=== PATIENT | female | born 1960 | race Caucasian/White ===

== ENCOUNTER 2016-04-06 15:57 | Inpatient (IN) | payer OTHER, MEDICARE ==
[~2016-04-06] VITALS: Ht 165.1 cm; Wt 113.4 kg
[~2016-04-06 15:57] MED LIST: AMBIEN 10MG10 MG PO; CHLORPROMAZINE50 M2 PO; CLOTRIMAZOLE10 M1 PO; CYANOCOBAL1000 MCG/M IM; ENULOSE 2020 GM/30 M PO; LASIX20 M1 PO; LEVEMIR100 UNIT/1 SC; LIDOCAINE HCL V15 ML PO; LORAZEPAM1 MG PO; METOPROLOL SUCC25 M1 PO; Magic mouthwash PO; NEURONTIN800 M2 PO; NORVASC 5MG TAB5 MG PO; NOVOLOG100 UNIT/2 SC; OXY IR5 MG PO; OXYCODONE HCL5 M2 PO; OXYCODONE HYDRO10 M1 PO; PERCOCET 5-3251 EACH PO; PRILOSEC OTC20 MG PO; SERTRALINE HYDR25 MG PO; STOMACH PILL; ULTRAM50 M1 PO; VITAMIN B-121000 MC3 PO; VITAMIN B121000 MCG PO; ZOFRAN ODT4 MG PO; ZOLOFT25 MG PO; ZOLPIDEM TARTRA10 M1 PO
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
[2016-04-06 17:51] LABS: ABSOLUTE BASOPHIL COUNT 0 /CUMM (0.0-0.2); ABSOLUTE EOSINOPHIL COUNT 0 /CUMM (0.0-0.7); ABSOLUTE GRANULOCYTE CT 1.9 /CUMM (1.4-6.5); ABSOLUTE LYMPH COUNT 0.6 /CUMM (1.2-3.4); ABSOLUTE MONOCYTE COUNT 0.5 /CUMM (0.10-0.60); BASOPHIL % 0.5 % (0.0-2.0); EOSINOPHIL % 0.5 % (0-5); HEMATOCRIT 36.6 % (37-47); MEAN CORPUSCULAR HGB 35.1 PG (27.0-31.0); MEAN CORPUSCULAR HGB CONC 33.7 G/DL (33.0-37.0); MEAN CORPUSCULAR VOLUME 104.2 FL (81.0-99.0); MEAN PLATELET VOLUME 6.6 FL (7.4-10.4); PLATELET COUNT 91 /CUMM (130-400); RBC DISTRIBUTION WIDTH 17.9 % (11.5-14.5); RED BLOOD CELL CT 3.51 /CUMM (4.20-5.40); WHITE BLOOD CELL COUNT 3.1 /CUMM (4.8-10.8)
--- NOTE | 2016-04-06 18:10 | RADIOLOGY REPORT ---
EXAMINATION: XR KNEE, RIGHT CLINICAL INFORMATION: Trauma. Fall. Pain. COMPARISON: None. TECHNIQUE: 5 views. FINDINGS: No fracture. No dislocation. No joint effusion. There is chondrocalcinosis of the medial and lateral meniscus. No bone erosion or significant bone spur. IMPRESSION: No acute abnormality of the knee.
--- NOTE | 2016-04-06 18:59 | CT SCAN REPORT ---
CT HEAD WITHOUT CONTRAST CLINICAL INFORMATION: Fall with pain. COMPARISON: Head CT 02/24/2012. TECHNIQUE: Contiguous axial imaging was performed from the skull base to vertex without intravenous administration of contrast. FINDINGS: There is no intracranial hemorrhage, hydrocephalus, extra-axial surface collection, midline shift, or other herniation pattern. Vargas to white matter differentiation is diffusely maintained without evidence of an evolved acute territorial infarct. The basilar cisterns are preserved. No significant soft tissue abnormality. No acute osseous abnormality. 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 Stable appearing chronic deformity of the left nasal bone. There is mild mucosal thickening throughout the left maxillary sinus. The remaining paranasal sinuses and the mastoid air cells are well-aerated. IMPRESSION: - No acute intracranial abnormality. 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
[2016-04-06 21:56] VITALS: BP 140/90
--- NOTE | 2016-04-06 23:53 | History & Physical ---
COURTNEY PERSAUD,[facility] 04/06/16 7671: General Information and HPI MD Statement: I have seen and personally examined HIRAL ANGUIANO and documented this H&P. The patient is a 55 year old F who presented with a patient stated chief complaint of [multiple fall]. Source of Information: patient, old records Exam Limitations: no limitations History of Present Illness: 55/F with PMH of active C Viers not on medication, cirrhosis, alcohol abuse didn 't drink for the last 5 months, HTN, CKD stage 3B, anxiety, depression, and GERD , who presented to the ED because of multiple falls. 2 Days ago patient fell on the heater and gaona her lower abdomen. yesterday she fell again and this time landed on her right knee and hit her head. Due to these recent multiple falls, her nurse send her to the hospital as she believes it's unsafe for the patient to stay home alone. Patient reported dizziness and mild shortness breath before she lost balance during both episodes. She denies LOC, seizure like activity, palpitation, or chest pain. Patient was recently started on insulin sliding scale for newly diagnosed diabetes mellitus. She admitted that she is not made during her blood sugar daily. She has a history of alcohol and drug abuse, however according to the patient she did not drink alcohol for the last 5 months. Patient lives alone, she feels sad and depressed because of her 13-year-old son just left her and went to live with his sister. She denies any suicidal/ homicidal ideation. However, Patient was discharged on March 19 after she was admitted because of Tylenol overdose which she claims to be accident. Patient reports right ear itching, dizziness, feeling as if her head is spinning just before the first fall. she also stated that the upper half of her heart sometimes go fast,but she does not remember the name of the condition. Allergies/Medications Allergies: Coded Allergies: NO KNOWN ALLERGIES (01/03/11) Home Med list Chlorpromazine HCl 50 MG TABLET 1 TAB PO DAILY MENTAL HEALTH (Reported) Cyanocobalamin (Vitamin B-12) (Unknown Strength) TAB (Unknown Dose) PO DAILY SUPPLEMENT (Reported) Furosemide 20 MG TABLET 1 TAB PO DAILY DIURETIC (Reported) Gabapentin 600 MG TABLET 1 TAB PO TID PAIN (Reported) Insulin Aspart (Novolog) 100 UNIT/ML VIAL 0 UNITS SC TIDAC/HS diabetes BEFORE MEALS Blood Insulin Sugar Units <80 0 81-150 6 151-200 8 201-250 9 251-300 10 301-350 11 351-400 13 >400 Call Doctor AT BEDTIME Blood Insulin Sugar Units <80 0 81-100 0 101-200 0 201-250 0 251-300 4 301-350 5 351-400 6 >400 Call Doctor Insulin Detemir (Levemir) 100 UNIT/ML VIAL 10 UNITS SC BID diabetes Lidocaine HCl (Lidocaine HCl Viscous) 2 % SOLUTION 15 ML PO 4 TIMES/DAY pain [Magic mouthwash] 5-10 ML PO Q6P PRN sore throat Maalox, Lidocaine, Benadryl=1:1:1 Metoprolol Succinate 25 MG TAB 1 TAB PO DAILY afib Omeprazole (Prilosec Otc) 20 MG TCP 1 TAB PO QDAY GASTRITIS Oxycodone HCl/Acetaminophen (Percocet 5-325 MG Tablet) 5 MG-325 MG TABLET 1 TAB PO BID PRN BREAKTHROUGH PAIN Tramadol HCl (Ultram) 50 MG TABLET 1-2 TAB PO Q6PRN PRN severe pain Zolpidem Tartrate 10 MG TABLET 1 TAB PO QPMP SLEEP (Reported) Past History Travel History Traveled to [place] past 21 day No Medical History Blood Transfusion Hx: No Neurological: delerium, severe bout of hepatic encephalopathy, 02/2012 EENT: NONE Cardiovascular: hypertension Respiratory: obstructive sleep apnea Gastrointestinal: diverticulitis, upper GI bleed, colonoscopy in 12/22 one small TA and diverticulosis, EGD showed portal hypertensive gastropathy, but no varices Hepatic: cirrhosis, hepatitis C, hepatic encephalopathy Renal: urinary incontinence, acute renal failure Musculoskeletal: CHRONIC BACK PAIN BILATERAL LEG PAIN Psychiatric: alcohol dependence, anxiety, chronic pain disorder, depression, insomnia, opioid dependence (prescribed by PCP) Endocrine: diabetes Blood Disorders: coagulopathy, pancytopenia Cancer(s): cervical cancer, uterine cancer [employer]/Reproductive: NONE History of MRSA: No History of VRE: No History of CDIFF: No Isolation History: Standard Tetanus Vaccine: 04/04/16 Surgical History Surgical History: leep PROCEDURE Past Family/Social History Family History Relations & Conditions if any FATHER Relation not specified for: FH: hypertension Psychosocial History Where do you live? Home Services at Home: Nursing Smoking Status: Current Everyday Smoker Review of Systems Review of Systems Constitutional: Denies: see HPI, chills, diaphoresis, fever. EENTM: Reports: ear pain (right ear). Cardiovascular: Denies: chest pain, edema, palpitations, peripheral edema, syncope. Respiratory: Reports: short of breath (very mild before fall). Denies: cough, sputum production, wheezing. GI: Denies: abdominal pain, bloating, constipation, diarrhea, nausea, vomiting. Genitourinary: Denies: dysuria. Skin: Denies: rash. Exam & Diagnostic Data Last 24 Hrs of Vital Signs/I&O Vital Signs Date Time Temp Pulse Resp B/P Pulse O2 O2 Flow FiO2 Ox Delivery Rate 04/07 0520 98.1 155 26 108/78 92 04/06 2156 98.3 92 20 140/90 95 04/06 2118 22 97 Room Air 04/06 2014 97.0 93 20 136/98 93 Room Air 04/06 1842 97.8 83 18 120/60 04/06 1730 85 20 133/64 97 Room Air Intake & Output 04/07 0800 04/07 0000 04/06 1600 Intake Total 240 Output Total 1 Balance -1 240 Intake, Oral 240 Output, Stool 1 Patient 113.398 kg 113.398 kg Weight Physical Exam General Appearance Alert, Oriented X3, Cooperative, No Acute Distress Skin No Rashes, burn on the left lower quadrant and found 15 cm by 6 centimeter HEENT Atraumatic, PERRLA, EOMI, mildly dry Neck No JVD Cardiovascular Regular Rate, Normal S1, Normal S2, No Murmurs Lungs decreased air entry over lung bilaterally with no additional sounds Abdomen Soft, No Tenderness Neurological Normal Speech Assessment/Plan Assessment: Assessment and plan #Multiple falls likely Patient multiple falls can be multifactorial, patient has a liver cirrhosis with elevated ammonia levels at presentation so hepatitic encephalopathy is a possible. Patient was recently diagnosed with diabetes and just started on insulin, so hypoglycemia is another possible. * We will hydrate hydration with normal saline at 150 mL an hour * Patient will receive lactulose 20 mg 3 times a day. * Repeat ammonia levels in a.m. * Frequent Accu-Cheks. We will place patient on the same insulin scale as during last admission. * We will check orthostatics * PT consult in a.m. * Safe discharge disposition. #burn over the left lower quadrant. * Wound consult in a.m. evaluation of the burn. * We will continue burn cream. #Diabetes mellitus: Last admission her Hemoglobin A1c was 10.7. * Accu-Cheks * NovoLog sliding scale(same scale as last discharge) * Levemir 10 units twice a day * Endocrinology consult in a.m. #CKD stage 3B * Creatinine is on the baseline 1.1. * Repeat BEP tomorrow #Chronic Hep C with cirrhosis. She is scheduled for follow up with Dr. Ortiz this month for treatment of Hep C. Last viral load (2014): 7093614. Ultimately may need a liver transplant evaluation. * We will check liver function tests * We will check INR #Macrocytosis: Most likely Secondary to alcohol abuse During last admission earlier this month patient had Elevated B12 levels, normal folate, TSH and cortisol. #Hypertension, bipolar, GERD * We will continue home medication including metoprolol, omeprazole, Lasix, gabapentin and Ambien. #Depression Patient denies suicidal ideation or homicidal ideation. Her 13-year-old son just moved to live with his sister, and this broke her heart, patient was crying during and after admission. * Psych consult in am DVT ppx Alps. Diabetic diet Full code. As Ranked By This Provider Problem List: 1. Depression 2. Diabetes mellitus 3. Fall Core Measures/Miscellaneous Acute Coronary Syndrome ACS Diagnosis: No Cerebrovascular Accident CVA/TIA Diagnosis: No Congestive Heart Failure CHF Diagnosis: No Venous Thromboembolism VTE Risk Factors: Acute medical illness, Age > 40 VTE Prophylaxis Ordered Inpt: Mech & Pharm No Mech VTE prophylaxis d/t: No contraindications No VTE Pharm Prophylaxis d/t: No contraindications VTE Diagnosis: No VTE Type: NONE VTE Confirmed by (Test): NONE Severe Sepsis Severe Sepsis Present: No Septic Shock Septic Shock Present: No Miscellaneous Documentation Attending Case Discussed With: MAN FORD MD Primary Care Physician: MANDIE PUENTE MD Patient sees these Specialists MANDIE PUENTE MD Level of Patient Care: General Medicine SOFIA RICHARDS 04/07/16 0049: Resident Review Statement Resident Statement: examined this patient, discussed with strategy intern Other Findings: 55 yo F with h/o Hep C s/p ribavirin, IFN and boceprevir, cirrhosis, HTN, CKD stage 3B, anxiety, depression, GERD, previous alcohol use sober for 5 months, recent admission to [place](03/15/2016) drug overdose(Vyvanse, ambien, and chlopromazine) presented to the ED from home with a chief complaint of multiple falls. The A nurse send the patient to the hospital since she was deemed unsafe at home. She fell down on the heater 2 days ago resulting in a burn on her abdomen for which she was seen in the ER. She had a mechanical fall yesterday when she lost her balance, fell in the ground and hit her head. She also injured her right knee. Admits to being lightheaded and dizzy prior to the fall. Denies any loss of consciousness, seizure-like activity. Admits to being lethargic at home and taking lactulose for constipation. She was started on insulin during the last admission and admits to taking that at home. However she does not check her sugar regularly. Denies any alcohol/drug abuse. Lives at home by herself. Denies any chest pain, shortness of breath, palpitations, nausea, vomiting, urinary and bowel complaints. Denies any suicidal/homicidal ideation. In the ED vitals temperature 97.8, pulse 83, respiration 18, blood pressure 120/ 60, saturating 97% on room air. Labs showed a WBC count of 31, H&H 12.3/36.6, MCV 104.2, platelet count 91, creatinine 1.1(baseline 1.3), glucose 159, total bili 2.4, AST 112, ALT 74, alkaline phosphatase 189, ammonia 52, creatinine kinase 251, albumin 2.1, hemoglobin A1c 10.7(03/16/2016), INR pending U tox negative, serum alcohol level less than 10, UA benign Head CT negative for any acute intracranial pathology. 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 Knee x-ray negative for any abnormality. Physical exam: Gen.: Morbidly obese, awake, alert, oriented 3, moderate distress, tremulous Skin: Spider angiomatous is noted over chest and back. Multiple bruises over her left knee, abdomen and back. Large area of second-degree burn located on the left side of the abdomen with erythema. HEENT: PERRLA, EOMI, dry mucous membranes Respiratory: Normal breath sounds CVS: Regular rate and rhythm, no murmurs rubs or gallops. Neurological: Power intact, reflexes normal, mild flapping tremor noted. Plan: 1. Multiple falls likely secondary to hepatitic encephalopathy Vs hypoglycemia. Elevated ammonia levels at presentation. Takes lactulose on and off. Recently started on insulin during last admission. Does not check sugars at home. Lives by herself and often skips meals. Elevated CPK levels on labs -Admit to [facility] -Frequent neuro checks -Aggressive hydration with normal saline at 150 mL an hour -Continue lactulose 20 mg 3 times a day goal at 3 BM/day. Repeat ammonia levels in a.m. -Frequent Accu-Cheks. We will place patient on the same insulin scale as during last admission. -We will check orthostatics -PT consult in a.m. -Safe discharge disposition. -Wound consult in a.m. evaluation of the burn. We will continue barrier cream for now. 2.Hepatic encephalopathy: Ammonia 55, h/o cirrhosis 2/2 Hep C. MELD SCORE 12. -Continue lactulose at 20 mg twice a day -We'll check ammonia levels in a.m. -Trend LFTs and bilirubin 3. Diabetes mellitus: Hemoglobin A1c 10.7. -3 times a day Accu-Cheks -NovoLog sliding scale(same scale as last discharge) -Levemir 10 units twice a day -Endocrinology consult in a.m. 4.CKD stage 3B - stable 5.Chronic Hep C with cirrhosis. She is scheduled for follow up with Dr. Ortiz this month for treatment of Hep C. Last viral load (2014): [id number]. Ultimately may need a liver transplant evaluation. 7. Macrocytosis: Secondary to alcohol abuse -Elevated B12 levels, normal folate, TSH and cortisol earlier this month. -Sober for 5 months now. -Will put on CIWA as pt anxious and Ativan per CIWA 8. Thrombocytopenia with hypoalbuminemia 2/2 cirrhosis[address]. 9[address] metoprolol, omeprazole, Lasix, gabapentin and Ambien. 10. Depression/ crying spells -Psych consult in am DVT ppx Alps. Diabetic diet Full code. MAN FORD 04/07/16 0302: Attending MD Review Statement Attending Statement Attending MD Statement: examined this patient, discuss w/resident/PA/RESTROOMS OR LOUNGES MAID, agreed w/resident/PA/RESTROOMS OR LOUNGES MAID, reviewed EMR data (avail), reviewed images, amended to note Attending Assessment/Plan: CC: Multiple falls PMHx: Cirrhosis, hep C (nontender treatment), alcohol abuse, hepatic encephalopathy, bipolar, HTN, renal insufficiency, DM, obesity Patient had multiple falls in last week, patient lives alone at home, patient's home care nurse called stating that she believes patient may not be safe at her home given multiple falls. Patient describes all falls probably secondary to unsteady gait and accidental falls, without LOC. She describes hitting her right knee, right wrist, head, landing on space heater on different occasions. She describes dizziness, mild shortness of breath before falls but denies palpitations, chest pain, headache, loss of consciousness before or after falls. Patient was recently diagnosed to be diabetes and was started on basal and sliding scale insulin at home, patient is compliant with her basal insulin Levemir 10 twice a day, she did not check her blood sugar with all this falls. Does not report low blood sugar in any other occasion. Patient was admitted for accidental ingestion of amphetamine and was discharged on March 19. NO Hx Ascitis or GI bleeding, she takes lactulose at home as required. Has BM daily or every alternate day. Vitals: Afebrile, HR, RR, BP, O2 saturation in acceptable range. On examination : A O 3, anxious, no respiratory distress, no focal neurological deficit, cranial nerves intact, left eye appears more sunken and smaller than the right ( old), extraocular muscles intact. tremors present, asterixis appreciated, spider angiomata on skin, superficial burn on the left lower abdomen, no evidence of infection. Abdomen is soft otherwise, BS + Mucosa moist, no JVD. RS: Diffuse wheezing bilaterally CVS: S1 and S2, RRR. Labs WBC 3.1, hemoglobin 12.3, MCV 104.2. Creatinine 1.1, glucose 159, bilirubin 2.4, AST 112, ALT 74, ammonia 52, CPK 251, albumin 2.1, INR pending, UA unremarkable, U tox positive for opiates, BAL negative X-ray right knee: No acute abnormality. CT head: No acute intracranial abnormality A and P #1 multiple falls: probably secondary to metabolic encephalopathy, OT PT evaluation in a.m. #2 metabolic encephalopathy: Probably secondary to hepatic encephalopathy, ammonia is elevated, continue scheduled lactulose 3 times a day, with the goal bowel movements 3 per day. Kidney function of appears to be in baseline range ruling out uremia. #3 cirrhosis bilirubin is at baseline but mild transaminitis present, repeat labs in a.m. Patient also has thrombocytopenia and leukopenia secondary to alcoholism and cirrhosis #4 patient appears more anxious, denies any alcohol use in last 6 months. Her blood alcohol level was negative. But patient lives alone at home and her abstinence could not be confirmed. Continue when necessary Ativan according to Ciwa score. Discontinue Savella score if patient remains stable. #5 evaluation for STIR given her multiple falls, and encephalopathy. #6 wound care consult for borderline injury on abdomen. #7 DM, HTN, and bipolar disorder: Continue basal and sliding scale insulin. continue home medications, metoprolol and Lasix. #8 DVT prophylaxis with heparin, adequate pain control, avoid excessive narcotics.
[2016-04-07] VITALS (10 sets, daily range): BP systolic 100–144; BP diastolic 68–88
--- NOTE | 2016-04-07 03:03 | Admission Certification ---
Admission Certification Certification Statement - As attending physician, I certify that at the time of - admission, based on clinical presentation, severity of - symptoms, need for further diagnostic testing and - therapeutic interventions, and risk of adverse outcomes - without in-hospital treatment, in my clinical assessment, - this patient requires an acute hospital stay for a minimum - of two nights or longer. I have also considered psychsocial - factors such as support system, advanced age, financial - issues, cognitive issues, and failed out-patient treatments, - past re-admission history, safety of patient, and lack of - compliance as applicable. Specific rationale supporting this admission is: Metabolic encephalopathy
--- NOTE | 2016-04-07 06:57 | Event Note ---
Event Note Event Note: Around 5:30 AM a rapid response was initiated on the patient because of heart rate 150/m. Patient was seen and examined. Patient was alert oriented. She was in the moderate distress. She denies shortness breath, chest pain, palpitation or dizziness. An EKG was done and confirmed supraventricular tachycardia. Valsalva and carotid massage did not break SVT. Patient was then transferred to telemetry. On telemetry heart rate went down to 120s without any intervention. * Potassium, sodium and calcium was within normal limits * A stat magnesium, phosphate, troponin was sent. * At 3 sets of troponin and EKG was placed rule out acute coronary syndrome. * We order echocardiogram * Patient was given 5 mg of Cardizem IV, after which heartrate slowed down to low 110s.
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
[2016-04-07 08:13] LABS: ABSOLUTE BASOPHIL COUNT 0 /CUMM (0.0-0.2); ABSOLUTE EOSINOPHIL COUNT 0 /CUMM (0.0-0.7); ABSOLUTE GRANULOCYTE CT 2.2 /CUMM (1.4-6.5); ABSOLUTE LYMPH COUNT 0.7 /CUMM (1.2-3.4); ABSOLUTE MONOCYTE COUNT 0.6 /CUMM (0.10-0.60); BASOPHIL % 0.5 % (0.0-2.0); EOSINOPHIL % 0.4 % (0-5); GRANULOCYTE % 62.3 % (42.2-75.2); HEMATOCRIT 36.2 % (37-47); MEAN CORPUSCULAR HGB 35.5 PG (27.0-31.0); MEAN CORPUSCULAR HGB CONC 33.9 G/DL (33.0-37.0); MEAN CORPUSCULAR VOLUME 104.5 FL (81.0-99.0); MEAN PLATELET VOLUME 6.9 FL (7.4-10.4); PLATELET COUNT 87 /CUMM (130-400); RBC DISTRIBUTION WIDTH 18.2 % (11.5-14.5); RED BLOOD CELL CT 3.46 /CUMM (4.20-5.40); WHITE BLOOD CELL COUNT 3.5 /CUMM (4.8-10.8)
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
[2016-04-07 08:32] LABS: PT 16.8 SEC (9.4-12.5)
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
--- NOTE | 2016-04-07 10:23 | Cons- Endocrinology ---
General Information and HPI Consulting Request Date of Consult: 04/07/16 Requested By: medical team Reason for Consult: management of DM type 2. Source of Information: patient, old records Exam Limitations: poor historian History of Present Illness: 55/F with PMH of cirrhosis, alcohol and drug abuse, HTN, CKD, anxiety, depression, GERD and DM, was admitted to after she had multiple falls. I was asked to see her for management of DM. She is on Levemir 10 units twice a day, Novolog coverage before meals and Novolog coverage at bedtime. Her FSG this morning was 131. Allergies/Medications Allergies: Coded Allergies: NO KNOWN ALLERGIES (01/03/11) Home Med List: Chlorpromazine HCl 50 MG TABLET 1 TAB PO DAILY MENTAL HEALTH (Reported) Cyanocobalamin (Vitamin B-12) (Unknown Strength) TAB (Unknown Dose) PO DAILY SUPPLEMENT (Reported) Furosemide 20 MG TABLET 1 TAB PO DAILY DIURETIC (Reported) Gabapentin 600 MG TABLET 1 TAB PO TID PAIN (Reported) Insulin Aspart (Novolog) 100 UNIT/ML VIAL 0 UNITS SC TIDAC/HS diabetes BEFORE MEALS Blood Insulin Sugar Units <80 0 81-150 6 151-200 8 201-250 9 251-300 10 301-350 11 351-400 13 >400 Call Doctor AT BEDTIME Blood Insulin Sugar Units <80 0 81-100 0 101-200 0 201-250 0 251-300 4 301-350 5 351-400 6 >400 Call Doctor Insulin Detemir (Levemir) 100 UNIT/ML VIAL 10 UNITS SC BID diabetes Lidocaine HCl (Lidocaine HCl Viscous) 2 % SOLUTION 15 ML PO 4 TIMES/DAY pain [Magic mouthwash] 5-10 ML PO Q6P PRN sore throat Maalox, Lidocaine, Benadryl=1:1:1 Metoprolol Succinate 25 MG TAB 1 TAB PO DAILY afib Omeprazole (Prilosec Otc) 20 MG TCP 1 TAB PO QDAY GASTRITIS Oxycodone HCl/Acetaminophen (Percocet 5-325 MG Tablet) 5 MG-325 MG TABLET 1 TAB PO BID PRN BREAKTHROUGH PAIN Tramadol HCl (Ultram) 50 MG TABLET 1-2 TAB PO Q6PRN PRN severe pain Zolpidem Tartrate 10 MG TABLET 1 TAB PO QPMP SLEEP (Reported) Review of Systems Review of Systems Constitutional: Reports: see HPI. Cardiovascular: Reports: edema. Denies: chest pain. Respiratory: Denies: short of breath. GI: Denies: abdominal pain. Genitourinary: Denies: dysuria. Hematologic/Endocrine: Denies: polyuria, polydipsia. Past History Travel History Traveled to [place] past 21 day No Medical History Blood Transfusion Hx: No Neurological: delerium, severe bout of hepatic encephalopathy, 02/2012 EENT: NONE Cardiovascular: hypertension Respiratory: obstructive sleep apnea Gastrointestinal: diverticulitis, upper GI bleed, colonoscopy in 12/22 one small TA and diverticulosis, EGD showed portal hypertensive gastropathy, but no varices Hepatic: cirrhosis, hepatitis C, hepatic encephalopathy Renal: urinary incontinence, acute renal failure Musculoskeletal: CHRONIC BACK PAIN BILATERAL LEG PAIN Psychiatric: alcohol dependence, anxiety, chronic pain disorder, depression, insomnia, opioid dependence (prescribed by PCP) Endocrine: diabetes Blood Disorders: coagulopathy, pancytopenia Cancer(s): cervical cancer, uterine cancer 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 Home Services at Home: Nursing Smoking Status: Current Everyday Smoker Exam & Diagnostic Data Last 24 Hrs of Vital Signs/I&O Vital Signs Date Time Temp Pulse Resp B/P Pulse O2 O2 Flow FiO2 Ox Delivery Rate 04/07 0927 119 100/68 04/07 0836 98.5 119 22 100/68 93 Room Air 04/07 0647 118 126/60 04/07 0625 97.8 120 22 144/68 90 Room Air 04/07 0520 98.1 155 26 108/78 92 04/06 2156 98.3 92 20 140/90 95 04/06 2118 22 97 Room Air 04/06 2014 97.0 93 20 136/98 93 Room Air 04/06 1842 97.8 83 18 120/60 04/06 1730 85 20 133/64 97 Room Air Intake & Output 04/07 1600 04/07 0800 04/07 0000 Intake Total 350 240 Output Total 1 Balance 349 240 Intake, IV 200 Intake, Oral 150 240 Number 0 Bowel Movements Output, Stool 1 Patient 250 lb 250 lb Weight Physical Exam General Appearance: anxious, mild distress Neck: normal inspection Respiratory: decreased breath sounds Cardiovascular: regular rate/rhythm Gastrointestinal: distention Extremities: swelling Skin: ecchymosis (huge skin lesion over LLQ) Labs/Paresh Results: Laboratory Tests 04/07 04/07 04/07 0650 0603 0510 Chemistry Sodium (137 - 145 mmol/L) 139 Potassium (3.5 - 5.1 mmol/L) 3.8 Chloride (98 - 107 mmol/L) 106 Carbon Dioxide (22 - 30 mmol/L) 28 Anion Gap (5 - 16) 5 BUN (7 - 17 mg/dL) 9 Creatinine (0.5 - 1.0 mg/dL) 1.2 H Estimated GFR (>60 ml/min) 47 L BUN/Creatinine Ratio (7 - 25 %) 7.5 Phosphorus (2.5 - 4.5 mg/dL) 3.0 Magnesium (1.6 - 2.3 mg/dL) 1.4 L Total Bilirubin (0.2 - 1.3 mg/dL) 2.4 H Direct Bilirubin (< 0.4 mg/dL) 1.4 H AST (14 - 36 U/L) 106 H ALT (9 - 52 U/L) 68 H Alkaline Phosphatase (<127 U/L) 199 H Ammonia (9 - 30 umol/L) 37 H Troponin I (< 0.11 ng/ml) < 0.01 Cancelled Cancelled Total Protein (6.3 - 8.2 g/dL) 6.8 Albumin (3.5 - 5.0 g/dL) 2.1 L TSH (0.270 - 4.200 uIU/mL) 5.740 H Coagulation PT (9.4 - 12.5 SEC) 16.8 H INR (0.90 - 1.19) 1.61 H Hematology CBC w Diff NO MAN DIFF REQ WBC (4.8 - 10.8 /CUMM) 3.5 L RBC (4.20 - 5.40 /CUMM) 3.46 L Hgb (12.0 - 16.0 G/DL) 12.3 Hct (37 - 47 %) 36.2 L MCV (81.0 - 99.0 FL) 104.5 H MCH (27.0 - 31.0 PG) 35.5 H RDW (11.5 - 14.5 %) 18.2 H Plt Count (130 - 400 /CUMM) 87 L MPV (7.4 - 10.4 FL) 6.9 L Gran % (42.2 - 75.2 %) 62.3 Lymphocytes % (20.5 - 51.1 %) 19.2 L Monocytes % (1.7 - 9.3 %) 17.6 H Eosinophils % (0 - 5 %) 0.4 Basophils % (0.0 - 2.0 %) 0.5 Absolute Granulocytes (1.4 - 6.5 /CUMM) 2.2 Absolute Lymphocytes (1.2 - 3.4 /CUMM) 0.7 L Absolute Monocytes (0.10 - 0.60 /CUMM) 0.6 Absolute Eosinophils (0.0 - 0.7 /CUMM) 0 Absolute Basophils (0.0 - 0.2 /CUMM) 0 PUBS MCHC (33.0 - 37.0 G/DL) 33.9 04/06 04/06 1906 1848 Chemistry Ammonia (9 - 30 umol/L) 52 H Toxicology Urine Opiates Screen (>2000 NG/ML) 898.00 Methadone Screen (>300 NG/ML) 50 Barbiturate Screen (>200 NG/ML) < 60 Ur Phencyclidine Scrn (>25 NG/ML) < 6.00 Amphetamines Screen (>1000 NG/ML) < 100 U Benzodiazepines Scrn (>200 NG/ML) < 85 Urine Cocaine Screen (>300 NG/ML) < 50 Urine Cannabis Screen (>50 NG/ML) < 5.00 Urines Urine Color (YEL,AMB,STR) YEL Urine Clarity (CLEAR) CLEAR Urine pH (5.0 - 8.0) 7.0 Ur Specific [place] (1.001 - 1.035) 1.010 Urine Protein (NEG,<30 MG/DL) NEG Urine Ketones (NEG) NEG Urine Nitrite (NEG) NEG Urine Bilirubin (NEG) NEG Urine Urobilinogen (0.1 - 1.0 EU/dl) >=8.0 H Ur Leukocyte Esterase (NEG) NEG Ur Microscopic EXAM NOT REQUIRED Urine Hemoglobin (NEG) NEG Urine Glucose (N MG/DL) NEG 04/06 1740 Chemistry Sodium (137 - 145 mmol/L) 137 Potassium (3.5 - 5.1 mmol/L) 4.2 Chloride (98 - 107 mmol/L) 102 Carbon Dioxide (22 - 30 mmol/L) 30 Anion Gap (5 - 16) 5 BUN (7 - 17 mg/dL) 9 Creatinine (0.5 - 1.0 mg/dL) 1.1 H Estimated GFR (>60 ml/min) 52 L BUN/Creatinine Ratio (7 - 25 %) 8.2 Glucose (65 - 99 mg/dL) 159 H Calcium (8.4 - 10.2 mg/dL) 8.4 Total Bilirubin (0.2 - 1.3 mg/dL) 2.4 H AST (14 - 36 U/L) 112 H ALT (9 - 52 U/L) 74 H Alkaline Phosphatase (<127 U/L) 189 H Creatine Kinase (30 - 135 U/L) 251 H Total Protein (6.3 - 8.2 g/dL) 6.8 Albumin (3.5 - 5.0 g/dL) 2.1 L Globulin (1.9 - 4.2 gm/dL) 4.7 H Albumin/Globulin Ratio (1.1 - 2.2 %) 0.4 L Amylase (30 - 110 U/L) < 30 L Lipase (23 - 300 U/L) 104 Hematology CBC w Diff NO MAN DIFF REQ WBC (4.8 - 10.8 /CUMM) 3.1 L RBC (4.20 - 5.40 /CUMM) 3.51 L Hgb (12.0 - 16.0 G/DL) 12.3 Hct (37 - 47 %) 36.6 L MCV (81.0 - 99.0 FL) 104.2 H MCH (27.0 - 31.0 PG) 35.1 H RDW (11.5 - 14.5 %) 17.9 H Plt Count (130 - 400 /CUMM) 91 L MPV (7.4 - 10.4 FL) 6.6 L Gran % (42.2 - 75.2 %) 63.0 Lymphocytes % (20.5 - 51.1 %) 20.6 Monocytes % (1.7 - 9.3 %) 15.4 H Eosinophils % (0 - 5 %) 0.5 Basophils % (0.0 - 2.0 %) 0.5 Absolute Granulocytes (1.4 - 6.5 /CUMM) 1.9 Absolute Lymphocytes (1.2 - 3.4 /CUMM) 0.6 L Absolute Monocytes (0.10 - 0.60 /CUMM) 0.5 Absolute Eosinophils (0.0 - 0.7 /CUMM) 0 Absolute Basophils (0.0 - 0.2 /CUMM) 0 PUBS MCHC (33.0 - 37.0 G/DL) 33.7 Toxicology Serum Alcohol (<10 MG/DL) < 10.0 Assessment/Plan Assessment/Plan 55/F with PMH of cirrhosis, alcohol and drug abuse, HTN, CKD, anxiety, depression, GERD and DM, was admitted to after she had multiple falls. 1. DM management: ---continue Levemir 10 units twice a day; ---adjust Novolog coverage before meals and Novolog coverage at bedtime--detail see the inpatient DM orders; ---monitor FSGs; 2. abnormal TSH: ---repeat TSH, check free T4 and TT3 in the morning; ---check thyroid antibody panel. Inpatient Diabetes Orders Before Each Meal: Bolus Insulin: Novolog < 80 mg/dl: no coverage 80-100 mg/dl: 6 units 101-120 mg/dl: 6 units 121-150 mg/dl: 6 units 151-200 mg/dl: 8 units 201-250 mg/dl: 10 units 251-300 mg/dl: 12 units 301-350 mg/dl: 14 units 351-400 mg/dl: 16 units > 400 mg/dl: 18 units Bedtime: Bolus Insulin: Novolog < 80 mg/dl: no coverage 80-100 mg/dl: no coverage 101-120 mg/dl: no coverage 121-150 mg/dl: no coverage 151-200 mg/dl: no coverage 201-250 mg/dl: no coverage 251-300 mg/dl: 2 units 301-350 mg/dl: 3 units 351-400 mg/dl: 4 units > 400 mg/dl: 5 units Consult Acknowledgment - Thank you for your consult request.
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
[2016-04-07] MEDS ORDERED: LITHIUM CARBON450 M1 PO (15:02)
[2016-04-07] MEDS ORDERED: CYMBALTA20 M1 PO (15:03)
[2016-04-07 15:09] LABS: LITHIUM < 0.2 mmol/L (0.6-1.2)
[2016-04-07] MEDS ORDERED: ZYPREXA5 M1 PO (15:33)
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
--- NOTE | 2016-04-08 00:09 | Patient Discharge Instructions ---
Discharge Instructions General Discharge Information Special Instructions: -Please follow up with transitions rn care coordinator, Dr. magana the medical discharge. -Please follow-up with your PCP within a week of discharge. -Please follow up with hot end operator, Dr. patterson with a medical discharge. -You should return to [facility] on 04/11/2015 at 10 a.m. -Please return to the hospital if your symptoms not improve/worsen Diet Additional DIET Information: Diabetes diet with 2 g daily sodium intake. Activity Additional ACTIVITY Info: As tolerated Acute Coronary Syndrome Inclusion Criteria At DC or during hospital stay patient has or had the following: ACS DIAGNOSIS No Discharge Core Measures Meds if any: Prescribed or Continued at Discharge Meds if any: NOT Prescribed or Continued at Discharge Congestive Heart Failure Inclusion Criteria At DC or during hospital stay patient has or had the following: CHF DIAGNOSIS No Discharge Core Measures Meds if any: Prescribed or Continued at Discharge Meds if any: NOT Prescribed or Continued at Discharge Cerebrovascular accident Inclusion Criteria At DC or during hospital stay patient has or had the following: CVA/TIA Diagnosis No Discharge Core Measures Meds if any: Prescribed or Continued at Discharge Meds if any: NOT Prescribed or Continued at Discharge Venous thromboembolism Inclusion Criteria VTE Diagnosis No VTE Type NONE VTE Confirmed by (Test) NONE Discharge Core Measures - Per Current guidelines, there needs to be overlap - treatment for the first 5 days of Warfarin therapy. - If discharged on Warfarin prior to 5 days of - overlap therapy, the patient will need to be - assessed for post discharge needs including - *Post discharge parental anticoagulation - *Warfarin and/or parental anticoagulation education - *Follow up date to check INR post discharge At least 5 days overlap therapy as Inpatient No Meds if any: Prescribed or Continued at Discharge Note: Overlap Therapy is Warfarin and Anticoagulant Meds if any: NOT Prescribed or Continued at Discharge
[2016-04-08 00:38] VITALS: BP 120/80
[2016-04-08 08:37] VITALS: BP 102/59
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
--- NOTE | 2016-04-08 09:10 | ECHOCARDIOGRAM REPORT ---
HIRAL ANGUIANO Age: 55 : 1960 Gender: F Exam Date: 04/07/2016 09:45 Exam Location: [address] Ht (in): 65 Wt (lb): 250 BSA: 2.34 BP: 100 / 68 Ordering Physician: SOFIA RICHARDS, Referring Physician: SOFIA RICHARDS MD Technologist: Lam Ball [facility] Room Number: 171-1 Indications: Arrhythmia Rhythm: Sinus Technical Quality: good FINDINGS Left Ventricle Normal left ventricular size, wall thickness and systolic function with no obvious regional wall motion abnormalities. Normal left ventricular diastolic filling pattern for age. The ejection fraction is visually estimated at 80%. Right Ventricle The right ventricle is normal in size and function. Right Atrium The right atrium is normal in size. Left Atrium The left atrium is normal in size. The interatrial septum is intact. Mitral Valve The mitral valve demonstrates mild posterior annular calcification with normal function. There is trace mitral regurgitation. Aortic Valve Structurally normal aortic valve without significant sclerosis or stenosis. There is no aortic regurgitation. Tricuspid Valve The tricuspid valve is normal in structure and function. There is no tricuspid regurgitation. Pulmonic Valve Structurally normal pulmonic valve. There is no pulmonic regurgitation. Pericardium Normal pericardium without effusion. No pleural effusion. Great Vessels Normal aortic root dimension. The aortic arch and great vessels are well seen and are normal. CONCLUSIONS 1. Normal EF of 80%. 2. Trace mitral regurgitation. Rafiq Ibarra M.D. (Electronically Signed) Final Date: 08 April 2016 09:09 MEASUREMENTS (Male / Female) Normal Values 2D ECHO LV Diastolic Diameter PLAX 3.9 cm 4.2 - 5.9 / 3.9 - 5.3 cm LV Systolic Diameter PLAX 2.3 cm 2.1 - 4.0 cm LV Fractional Shortening PLAX 41.0 % 25 - 46 % LV Ejection Fraction 2D Teich 72.5 % IVS Diastolic Thickness 1.1 cm LVPW Diastolic Thickness 1.1 cm LV Relative Wall Thickness 0.6 RV Internal Dim ED PLAX 3.1 cm 1.9 - 3.8 cm LVOT Diameter 2.0 cm Aortic Root Diameter 2.6 cm LA Systolic Diameter LX 3.2 cm 3.0 - 4.0 / 2.7 - 3.8 cm LA Volume 38.0 cm 18 - 58 / 22 - 52 cm DOPPLER AV Peak Velocity 176.0 cm/s AV Peak Gradient 12.4 mmHg AV Mean Velocity 113.0 cm/s AV Mean Gradient 6.0 mmHg AV Velocity Time Integral 30.4 cm LVOT Peak Velocity 152.0 cm/s LVOT Peak Gradient 9.2 mmHg LVOT Mean Velocity 95.9 cm/s LVOT Mean Gradient 5.0 mmHg LVOT Velocity Time Integral 32.7 cm LVOT Stroke Volume 102.7 cm AV Area Cont Eq vti 3.4 cm AV Area Cont Eq pk 2.7 cm MV Peak Velocity 152.0 cm/s MV Peak Gradient 9.2 mmHg MV Mean Velocity 95.4 cm/s MV Mean Gradient 5.0 mmHg Mitral E Point Velocity 138.0 cm/s Mitral A Point Velocity 146.0 cm/s Mitral E to A Ratio 0.9 MV PHT Velocity 149.0 cm/s MV Deceleration Fergus 586.0 cm/s MV Pressure Half Time 76.3 ms MV Area PHT 2.9 cm MV Deceleration Time 204.0 ms PV Peak Velocity 165.0 cm/s PV Peak Gradient 10.9 mmHg PV Mean Velocity 110.0 cm/s PV Mean Gradient 6.0 mmHg PV Velocity Time Integral 28.1 cm
--- NOTE | 2016-04-08 12:43 | PN- Diabetes ---
Assessment/Plan Assessment: 55/F with PMH of cirrhosis, alcohol and drug abuse, HTN, CKD, anxiety, depression, GERD and DM, was admitted to after she had multiple falls. She was put on Levemir 10 units twice a day, Novolog coverage before meals and Novolog coverage at bedtime. Her FSGs were 170, 124, 78, 100, 85 and 123. Plan: 1. decrease Levemir to 8 units twice a day; 2. decrease Novolog coverage before meals-- detail see the inpatient DM order; 3. continue the current Novolog covearge at bedtime; 4.monitor FSGs. will follow. Inpatient Diabetes Orders Before Each Meal: Bolus Insulin: Novolog < 80 mg/dl: no coverage 80-100 mg/dl: 4 units 101-120 mg/dl: 4 units 121-150 mg/dl: 4 units 151-200 mg/dl: 6 units 201-250 mg/dl: 7 units 251-300 mg/dl: 8 units 301-350 mg/dl: 10 units 351-400 mg/dl: 12 units > 400 mg/dl: 14 units Subjective Subjective: Her glucose level has been in the 70s and 80s. Objective Last 24 Hrs of Vital Signs/I&O Vital Signs Date Time Temp Pulse Resp B/P Pulse O2 O2 Flow FiO2 Ox Delivery Rate 04/08 0846 92 102/59 04/08 0837 98.1 92 17 102/59 93 Room Air 04/08 0038 99.1 95 20 120/80 91 Room Air 04/08 0000 Nasal 3.0L Cannula 04/07 1800 97.5 90 22 126/88 04/07 1643 97.5 90 22 126/88 92 Nasal 1.0L Cannula 04/07 1600 97.5 91 20 126/88 04/07 1400 98.0 92 16 104/68 Intake & Output 04/08 1600 04/08 0800 04/08 0000 Intake Total 260 775 Output Total 400 Balance 260 375 Intake, IV 20 310 Intake, Oral 240 465 Output, Urine 400 Findings Pertinent Lab/Paresh Results: Laboratory Tests 04/08 04/07 0640 1815 Chemistry Sodium (137 - 145 mmol/L) 138 Potassium (3.5 - 5.1 mmol/L) 3.7 Chloride (98 - 107 mmol/L) 105 Carbon Dioxide (22 - 30 mmol/L) 28 Anion Gap (5 - 16) 5 BUN (7 - 17 mg/dL) 10 Creatinine (0.5 - 1.0 mg/dL) 1.2 H Estimated GFR (>60 ml/min) 47 L BUN/Creatinine Ratio (7 - 25 %) 8.3 Total Bilirubin (0.2 - 1.3 mg/dL) 2.0 H Direct Bilirubin (< 0.4 mg/dL) 1.1 H AST (14 - 36 U/L) 96 H ALT (9 - 52 U/L) 68 H Alkaline Phosphatase (<127 U/L) 174 H Ammonia (9 - 30 umol/L) 53 H Troponin I (< 0.11 ng/ml) < 0.01 Total Protein (6.3 - 8.2 g/dL) 6.1 L Albumin (3.5 - 5.0 g/dL) 1.9 L
[2016-04-08 16:46] VITALS: BP 120/72
[2016-04-08 23:00] VITALS: BP 114/78
[2016-04-09 08:42] VITALS: BP 102/78
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
--- NOTE | 2016-04-09 11:42 | PN- Diabetes ---
Assessment/Plan Assessment: 55/F with PMH of cirrhosis, alcohol and drug abuse, HTN, CKD, anxiety, depression, GERD and DM, was admitted to after she had multiple falls. Levemir was decreased to 8 units twice a day. She is on Novolog coverage before meals and Novolog coverage at bedtime. Her FSGs were 85, 123, 90, 89, 127 and 149. Plan: continue the current insulin orders; replete K; monitor FSGs and electrolytes; will follow. Subjective Subjective: She complains of have worsening swelling on her LE bilaterally. Objective Last 24 Hrs of Vital Signs/I&O Vital Signs Date Time Temp Pulse Resp B/P Pulse O2 O2 Flow FiO2 Ox Delivery Rate 04/09 0859 103 102/80 04/09 0842 97.5 63 18 102/78 93 Room Air 04/09 0000 Room Air 04/08 2300 98.1 71 18 114/78 95 Room Air 04/08 1646 97.8 83 16 120/72 94 Room Air Intake & Output 04/09 1600 04/09 0800 04/09 0000 Intake Total 650 600 Output Total 750 Balance 650 -150 Intake, IV 0 0 Intake, Oral 650 600 Number 0 0 Bowel Movements Output, Urine 750 Findings Pertinent Lab/Paresh Results: Laboratory Tests 04/09 0605 Chemistry Sodium (137 - 145 mmol/L) 138 Potassium (3.5 - 5.1 mmol/L) 3.4 L Chloride (98 - 107 mmol/L) 101 Carbon Dioxide (22 - 30 mmol/L) 28 Anion Gap (5 - 16) 8 BUN (7 - 17 mg/dL) 13 Creatinine (0.5 - 1.0 mg/dL) 1.2 H Estimated GFR (>60 ml/min) 47 L BUN/Creatinine Ratio (7 - 25 %) 10.8 Total Bilirubin (0.2 - 1.3 mg/dL) 1.9 H Direct Bilirubin (< 0.4 mg/dL) 1.0 H AST (14 - 36 U/L) 95 H ALT (9 - 52 U/L) 67 H Alkaline Phosphatase (<127 U/L) 182 H Total Protein (6.3 - 8.2 g/dL) 6.4 Albumin (3.5 - 5.0 g/dL) 2.0 L
[2016-04-09] MEDS ORDERED: GABAPENTIN300 M2 PO (14:12)
[2016-04-09] MEDS ORDERED: SILVADENE20 GM TOP (14:12)
[2016-04-09] MEDS ORDERED: VITAMIN A & D56.7 GM TOP (14:12)
[2016-04-09] MEDS ORDERED: FAMOTIDINE20 M1 PO (14:12)
[2016-04-09] MEDS ORDERED: XIFAXAN550 M1 PO (14:12)
[2016-04-09 15:30] VITALS: BP 110/60
[2016-04-09 20:30] VITALS: BP 110/70
--- NOTE | 2016-04-09 21:03 | Cons- Cardiology ---
General Information and HPI Consulting Request Date of Consult: 04/09/16 Requested By: ARISTIDES MONROY MD Reason for Consult: SVT and Sinus Adriel History of Present Illness: The patient is a 55-year-old female with history of alcohol abuse, chronic kidney disease and cirrhosis, who was recently diagnosed with diabetes mellitus, who was admitted after a fall with hepatic encephalopathy. She was initially on the general medical floor, when she was noted to have supraventricular tachycardia. Rapid response was called come and she was transferred to the telemetry floor. She was treated with metoprolol for SVT.. The S VT did not recur. She is now noted to have frequent sinus bradycardia in the 40s. She complains of significant lower extremity edema. She has had no chest pain. She notes occasional palpitations. No diaphoresis. No syncope. No orthopnea. Allergies/Medications Allergies: Coded Allergies: NO KNOWN ALLERGIES (01/03/11) Home Med List: Cyanocobalamin (Vitamin B-12) 1,000 MCG TABLET 1 TAB PO DAILY SUPPLEMENT ( Reported) Duloxetine Hydrochloride (Cymbalta) 20 MG CAPSULE.DR 1 CAP PO DAILY depression (Reported) Famotidine 20 MG TABLET 20 MG PO BID GERD Furosemide 20 MG TABLET 1 TAB PO DAILY DIURETIC (Reported) Gabapentin (Neurontin) 800 MG TABLET 1 TAB PO TID mood disorder (Reported) Gabapentin 300 MG CAPSULE 1 CAP PO Q8 NEUROPATHIC PAIN/ANXIETY Insulin Aspart (Novolog) 100 UNIT/ML VIAL 0 UNITS SC TIDAC/HS diabetes BEFORE MEALS Blood Insulin Sugar Units <80 0 81-150 6 151-200 8 201-250 9 251-300 10 301-350 11 351-400 13 >400 Call Doctor AT BEDTIME Blood Insulin Sugar Units <80 0 81-100 0 101-200 0 201-250 0 251-300 4 301-350 5 351-400 6 >400 Call Doctor Insulin Detemir (Levemir) 100 UNIT/ML VIAL 10 UNITS SC BID diabetes Lidocaine HCl (Lidocaine HCl Viscous) 2 % SOLUTION 15 ML PO 4 TIMES/DAY pain [place] Carbonate ([place] Carbonate ER) 450 MG TABLET.ER 1 TAB PO AT BEDTIME mood disorder (Reported) [Magic mouthwash] 5-10 ML PO Q6P PRN sore throat Maalox, Lidocaine, Benadryl=1:1:1 Metoprolol Succinate 25 MG TAB 1 TAB PO DAILY afib Olanzapine (Zyprexa) 5 MG TABLET 1 TAB PO QPM SLEEP (Reported) Omeprazole (Prilosec Otc) 20 MG TCP 1 TAB PO QDAY GASTRITIS Oxycodone HCl/Acetaminophen (Percocet 5-325 MG Tablet) 5 MG-325 MG TABLET 1 TAB PO BID PRN BREAKTHROUGH PAIN Rifaximin (Xifaxan) 550 MG TABLET 550 MG PO BID HEPATIC ENCEPHALOPATHY Silver Sulfadiazine (Silvadene) 1 % CREAM..G. 1 ANDRADE TOP DAILY ABDOMINAL WALL BURN Tramadol HCl (Ultram) 50 MG TABLET 1-2 TAB PO Q6PRN PRN severe pain Vitamin A & D (Vitamin A & D Ointment) 56.7 GM OINT...G. 1 ANDRADE TOP BID SKIN CARE Zolpidem Tartrate 10 MG TABLET 1 TAB PO QPMP SLEEP (Reported) Current Medications: Current Medications Sig/Ofelia Start time Last Medication Dose Route Stop Time Status Admin Benzonatate 100 MG BID 04/07 2130 AC 04/09 PO 210 Duloxetine HCl 20 MG DAILY 04/08 1000 AC 04/09 PO 0900 Famotidine 20 MG BID 04/07 1000 AC 04/09 PO 210 Furosemide 20 MG DAILY 04/07 1000 AC 04/09 PO 0900 Gabapentin 600 MG Q8 04/07 0600 AC 04/09 PO 2058 Insulin Aspart 0 TIDAC/HS 04/08 1236 AC 04/09 SC 1755 Insulin Detemir 8 UNITS BID 04/08 2200 AC 04/09 SC 2103 Lorazepam 0 Q1P PRN 04/07 0545 AC IV Magnesium Sulfate 1 GM Q2H 04/09 2245 AC 04/10 Dextrose/Water 100 ML IV 04/10 0244 0020 Metoprolol Succinate 25 MG DAILY 04/07 1000 AC 04/09 PO 0859 Nystatin 1 ANDRADE BID 04/09 0317 AC 04/09 TOP 210 Olanzapine 5 MG QPM 04/07 2200 AC 04/09 PO 2057 Oxycodone/ 1 TAB BID PRN 04/06 2245 AC 04/09 Acetaminophen PO 214 Potassium Chloride 40 MEQ ONCE ONE 04/09 2044 DC 04/09 PO 04/09 Rifaximin 550 MG BID 04/07 1000 AC 04/09 PO 210 Silver Sulfadiazine 1 ANDRADE DAILY 04/07 1000 AC 04/09 TOP 0901 Vitamin A/Vitamin D 1 ANDRADE BID 04/09 0317 04/09 TOP 2103 Review of Systems Review of Systems: Review of systems: No fever. No chills. No rash. No tremor. All other systems are reviewed and are noted to be negative. Past History Travel History Traveled to [place] past 21 day No Medical History Blood Transfusion Hx: Yes Neurological: delerium, severe bout of hepatic encephalopathy, 02/2012 EENT: NONE Cardiovascular: hypertension Respiratory: obstructive sleep apnea Gastrointestinal: colonoscopy in 12/22 one small TA and diverticulosis, EGD showed portal hypertensive gastropathy, but no varices diverticulosis coli colon TA 12/16/14: ? El's esophagus vs samplng error with indefinite dysplasia Hepatic: cirrhosis, hepatitis C, hepatic encephalopathy, EtOH abuse Renal: urinary incontinence, CKD Musculoskeletal: CHRONIC BACK PAIN BILATERAL LEG PAIN Psychiatric: alcohol dependence, anxiety, bipolar disease, chronic pain disorder , depression, insomnia, opioid dependence (prescribed by PCP) Endocrine: diabetes Blood Disorders: coagulopathy, pancytopenia Cancer(s): cervical cancer, uterine cancer CORE INSPECTOR/Reproductive: NONE Surgical History Surgical History: cholecystectomy, leep PROCEDURE Family History Relations & Conditions If Any: FATHER, , Age 57; Cause: ASHD (arteriosclerotic heart disease). MOTHER, , Age 58; Cause: Cerebral aneurysm. Relation not specified for: FH: hypertension Psychosocial History Where Do You Live? Home Who Do You Live With? self Services at Home: Nursing Primary Language: Japanese Smoking Status: Current Everyday Smoker ETOH Use: alcoholic (reportedly last drank 10/2015) Illicit Drug Use: marijuana (denies IVDA) Living Will? no Power of Electrical Cad Designer/HCP? no Other Social History: . Lives alone. Alcoholic, allegedly last drank 10/2015. 25 pk yr cigarette smoker. Hx remote marijuana. Denies IVDA. Multiple tattoos. 3 children (1 dtr/2 sons)- [employer]. Disabled. Unemployed. Functional Ability ADLs Independent: dressing, eating, toileting, bathing. Ambulation: independent IADLs Independent: shopping, housework, finances, food prep, telephone, transportation , medication admin. Employment History Employment: Disability ECHO Results (as available) Date of last Echo 02/15/12 EF% 60 Exam & Diagnostic Data Vital Signs and I&O Vital Signs Date Time Temp Pulse Resp B/P Pulse O2 O2 Flow FiO2 Ox Delivery Rate 04/10 0028 97.5 85 20 118/76 93 Room Air 04/09 2030 97.9 64 20 110/70 93 04/09 1530 97.5 95 20 110/60 90 04/09 0859 103 102/80 04/09 0842 97.5 63 18 102/78 93 Room Air 04/09 0800 Room Air Intake & Output 04/10 0804/10 0000 04/09 1600 04/09 0804/09 0000 04/08 1600 Intake Total 650 600 600 Output Total 750 Balance 650 -150 600 Intake, IV 0 0 Intake, Oral 650 600 600 Number 0 0 Bowel Movements Output, Urine 750 Physical Exam: Gen: The patient is in no acute distress HEENT: Normal nose, ears, and oropharynx. Pupils equal bilaterally. Conjunctiva normal. Neck: Supple with no JVD, no masses, and no thyromegaly Lungs: Clear to auscultation with normal respiratory effort Heart: RRR, S1, S2, no murmurs. 3+ peripheral edema, 2+ pulses in the lower extremities bilaterally Abdomen: Soft, nontender, no masses. No hepatomegaly. No splenomegaly Extremities: No clubbing or cyanosis. Normal muscle strength in the upper and lower extremities. Skin: Normal skin turgor with no skin ulcers or lesions noted. Neuro: Cranial nerves intact. Sensation intact Psych: Alert and oriented 3 with appropriate affect Labs/Paresh Results: Laboratory Tests 04/09 04/09 04/09 04/08 2045 1356 0605 0640 Chemistry Sodium (137 - 145 mmol/L) 138 138 Potassium (3.5 - 5.1 mmol/L) 3.4 L 3.7 Chloride (98 - 107 mmol/L) 101 105 Carbon Dioxide (22 - 30 mmol/L) 28 28 Anion Gap (5 - 16) 8 5 BUN (7 - 17 mg/dL) 13 10 Creatinine (0.5 - 1.0 mg/dL) 1.2 H 1.2 H Estimated GFR (>60 ml/min) 47 L 47 L BUN/Creatinine Ratio (7 - 25 %) 10.8 8.3 Phosphorus (2.5 - 4.5 mg/dL) 3.0 Magnesium (1.6 - 2.3 mg/dL) 1.5 L Total Bilirubin (0.2 - 1.3 mg/dL) 1.9 H 2.0 H Direct Bilirubin (< 0.4 mg/dL) 1.0 H 1.1 H AST (14 - 36 U/L) 95 H 96 H ALT (9 - 52 U/L) 67 H 68 H Alkaline Phosphatase (<127 U/L) 182 H 174 H Ammonia (9 - 30 umol/L) 53 H Troponin I (< 0.11 ng/ml) < 0.01 Total Protein (6.3 - 8.2 g/dL) 6.4 6.1 L Albumin (3.5 - 5.0 g/dL) 2.0 L 1.9 L Whole Bld Vitamin B1 Cancelled Diagnostic Data EKG Results EKG tracing is independently reviewed, reveals normal sinus rhythm at 88 with borderline low voltage CXR Results Chest x-ray March 15, 2016: Negative Other Results Head CT: - No acute intracranial abnormality. 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 Echocardiogram April 07, 2016: 1. Normal EF of 80%. 2. Trace mitral regurgitation. Assessment/Plan Assessment/Plan Assessment: 1. Hepatic encephalopathy 2. paroxysmal SVT, improved on metoprolol 3. Sinus bradycardia on metoprolol 4. Unremarkable echocardiogram recommendations: * Would decrease Toprol-XL to 12 point daily given sinus bradycardia * continue to monitor on telemetry for further tachycardia or bradycardia * continue p.o. Lasix Consult Acknowledgment - Thank you for your consult request.
[2016-04-10 00:28] VITALS: BP 118/76
[2016-04-10 08:23] VITALS: BP 109/55
--- NOTE | 2016-04-10 09:41 | PN- Att Addend ---
Attending Addendum Attending Brief Note Patient is doing okay. She is walking over the unit with the cane. Her mentation appears much better. She is afebrile, blood pressure is 109/35, breathing at 16-18 and pulse rate 72. She is awake and alert, lungs are clear to auscultation, heart is S1-S2 regular , abdomen is obese and she has the second-degree burn with Silvadene over it. She has some trace edema. She is a 55-year-old with a previous history of alcohol use and hep C cirrhosis with pancytopenia. We treated her for hepatic encephalopathy and she is currently on rifaximin, she has bipolar disorder on psychiatric meds and diabetes on insulin. She has an SVT it's well controlled with metoprolol and we have discharge planning in process
[2016-04-10] MEDS ORDERED: LEVEMIR100 UNIT/1 SC ×2 (09:46→14:09)
[2016-04-10] MEDS ORDERED: TOPROL XL25 M1 PO (10:01)
[2016-04-10] MEDS ORDERED: GABAPENTIN300 M2 PO (10:10)
--- NOTE | 2016-04-10 11:48 | PN- Diabetes ---
Assessment/Plan Assessment: 55/F with PMH of cirrhosis, alcohol and drug abuse, HTN, CKD, anxiety, depression, GERD and DM, was admitted to after she had multiple falls. Levemir was decreased to 8 units twice a day. She is on Novolog coverage before meals and Novolog coverage at bedtime. Her FSGs were 127, 149, 112, 96 and 118. Plan: continue the current insulin orders; monitor FSGs; will follow. Subjective Subjective: She feels about the same. Objective Last 24 Hrs of Vital Signs/I&O Vital Signs Date Time Temp Pulse Resp B/P Pulse O2 O2 Flow FiO2 Ox Delivery Rate 04/10 0832 72 109/55 04/10 0823 97.8 72 16 109/55 94 Room Air 04/10 0028 97.5 85 20 118/76 93 Room Air 04/09 2030 97.9 64 20 110/70 93 04/09 1530 97.5 95 20 110/60 90 Findings Pertinent Lab/Paresh Results: Laboratory Tests 04/10 04/09 04/09 0640 2045 1356 Chemistry Sodium (137 - 145 mmol/L) 139 Potassium (3.5 - 5.1 mmol/L) 3.9 Chloride (98 - 107 mmol/L) 104 Carbon Dioxide (22 - 30 mmol/L) 30 Anion Gap (5 - 16) 5 BUN (7 - 17 mg/dL) 15 Creatinine (0.5 - 1.0 mg/dL) 1.3 H Estimated GFR (>60 ml/min) 43 L BUN/Creatinine Ratio (7 - 25 %) 11.5 Magnesium (1.6 - 2.3 mg/dL) 1.9 Total Bilirubin (0.2 - 1.3 mg/dL) 1.6 H Direct Bilirubin (< 0.4 mg/dL) 0.9 H AST (14 - 36 U/L) 93 H ALT (9 - 52 U/L) 69 H Alkaline Phosphatase (<127 U/L) 176 H Troponin I (< 0.11 ng/ml) < 0.01 Total Protein (6.3 - 8.2 g/dL) 6.2 L Albumin (3.5 - 5.0 g/dL) 1.9 L Whole Bld Vitamin B1 Cancelled
[2016-04-10] MEDS ORDERED: FAMOTIDINE20 M1 PO (13:56)
[2016-04-10] MEDS ORDERED: XIFAXAN550 M1 PO (14:02)
[2016-04-10] MEDS ORDERED: VITAMIN A & D56.7 GM TOP (14:09)
[2016-04-10] MEDS ORDERED: SILVADENE20 GM TOP (14:09)
[2016-04-10] MEDS ORDERED: PERCOCET 5-3251 EACH PO ×3 (14:22→14:34)
[2016-04-10 15:46] VITALS: BP 95/55
== END 2016-04-10 16:22 | disposition home health service (06) | DRG 442 ==
LOC: ERH 15:57 → 1NO 19:36 → ERHI 19:36 → 2NA 21:36 → 1NO 04-07 06:23
PROVIDERS: Physician Assistant Medical; Student in an Organized Health Care Education/Training Program; ADMIT Internal Medicine
DX: K72.00 Acute and subacute hepatic failure without coma (principal); F11.20 Opioid dependence, uncomplicated; D61.818 Other pancytopenia; Z68.41 Body mass index [BMI] 40.0-44.9, adult; I47.1 Supraventricular tachycardia; K76.6 Portal hypertension; E66.01 Morbid (severe) obesity due to excess calories; K22.70 Barrett's esophagus without dysplasia; B18.2 Chronic viral hepatitis C; K70.30 Alcoholic cirrhosis of liver without ascites; I12.9 Hypertensive chronic kidney disease with stage 1 through stage 4 chronic kidney disease, or unspecified chronic kidney disease; N18.3 Chronic kidney disease, stage 3 (moderate); T21.22XA Burn of second degree of abdominal wall, initial encounter; E11.9 Type 2 diabetes mellitus without complications; Z79.4 Long term (current) use of insulin; K31.89 Other diseases of stomach and duodenum; K21.9 Gastro-esophageal reflux disease without esophagitis
CPT/HCPCS: 1NP; 2NASP; 36415; 73562-RT; 81003; 82436; 84425; 90471; 90714; 93005; 93010; 93306; 94799; 96374; 97001-GP; 97116-GO; 97161-GP; 99232; G0479; G0480; J0153; J2060; J3230; J7060

== ENCOUNTER 2016-06-11 17:21 | Emergency (ER) | payer OTHER, MEDICARE ==
[~2016-06-11] VITALS: Ht 162.6 cm; Wt 114.3 kg
[~2016-06-11 17:21] MED LIST changes: +CYMBALTA20 M1 PO; +FAMOTIDINE20 M1 PO; +GABAPENTIN300 M2 PO; +LITHIUM CARBON450 M1 PO; +SILVADENE20 GM TOP; +TOPROL XL25 M1 PO; +VITAMIN A & D56.7 GM TOP; +XIFAXAN550 M1 PO; +ZYPREXA5 M1 PO
--- NOTE | 2016-06-11 18:48 | ED MVC/FALL/TRAUMA COMPLAINT ---
History of Present Illness General Chief Complaint: Fall Stated Complaint: S/P FALL BACK PAIN KNEE AND SHOULDER PAIN Source: patient Exam Limitations: no limitations Vital Signs & Intake/Output Vital Signs & Intake/Output Vital Signs Date Time Temp Pulse Resp B/P Pulse O2 O2 Flow FiO2 Ox Delivery Rate 06/11 2021 98.3 89 18 142/88 97 Room Air 06/11 1727 98.9 88 18 159/90 96 Room Air ED Intake and Output 06/12 0000 06/11 1200 Intake Total Output Total Balance Patient 252 lb Weight Allergies Coded Allergies: NO KNOWN ALLERGIES (01/03/11) Reconcile Medications Albuterol Sulfate (Ventolin Hfa) 90 MCG HFA.AER.AD 2 PUF INH PRN RESPIRATORY (Reported) Duloxetine Hydrochloride (Cymbalta) 20 MG CAPSULE. 1 CAP PO BID DEPRESSION (Reported) Furosemide (Lasix) 20 MG TABLET 1 TAB PO DAILY DIURETIC (Reported) Gabapentin 300 MG CAPSULE 2 CAP PO Q8 NEUROPATHIC PAIN/ANXIETY Insulin Aspart (Novolog) 100 UNIT/ML VIAL 0 UNITS SC TIDAC/HS diabetes BEFORE MEALS Blood Insulin Sugar Units <80 0 81-150 6 151-200 8 201-250 9 251-300 10 301-350 11 351-400 13 >400 Call Doctor AT BEDTIME Blood Insulin Sugar Units <80 0 81-100 0 101-200 0 201-250 0 251-300 4 301-350 5 351-400 6 >400 Call Doctor Insulin Detemir (Levemir) 100 UNIT/ML VIAL 6 UNITS SC BID DM (Reported) Ketorolac Tromethamine 10 MG TABLET 1 TAB PO TID PRN PAIN RECEIVED im IN er Metoprolol Succinate 25 MG TAB 1 TAB PO DAILY afib Olanzapine (Zyprexa) 5 MG TABLET 1 TAB PO QPM SLEEP (Reported) Omeprazole 20 MG CAPSULE. 1 CAP PO DAILY GI (Reported) Triage Note: PT STATES THAT SHE TRIPPED OVER A TREE ROOT YESTERDAY AND FELL HURTING HER KNEES,LOW BACK, ARMS, TAKING ALEVE WITH NO RELIEF, PT AMBULATED WITH STEADY GAIT TO TRIAGE Triage Nurses Notes Reviewed? yes Onset: Abrupt Duration: constant Timing: recent history Severity: severe Severity Numbers: 7 Method of Injury: direct blow, fall Loss of Consciousness: no loss of consciousness No Modifying Factors: none HPI: Patient is a 55-year-old female who presents emergency that yesterday while ambulating outside she tripped over a tree root and which patient braced her fall with her left outstretched hand subsequent, resulting in localized left shoulder pain and patient struck the right anterior aspect of her knee to the ground resulting in skin abrasion and localized right knee pain. Patient states ambulation makes worse. Patient has tried Motrin with minimal relief of symptoms. Denies any head strike denies any back pain or neck pain. Denies any elbow pain abdominal pain cervical spine pain wrist pain and is otherwise without complaints. Tetanus is up-to-date. (ALBERTO CRENSHAW) Past History Travel History Traveled to [place] past 21 day No Medical History Any Pertinent Medical History? see below for history Neurological: delerium, severe bout of hepatic encephalopathy, 02/2012 EENT: NONE Cardiovascular: hypertension Respiratory: obstructive sleep apnea Gastrointestinal: colonoscopy in 12/22 one small TA and diverticulosis, EGD showed portal hypertensive gastropathy, but no varices diverticulosis coli colon TA 12/16/14: ? 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 MOTHER, , Age 58; Cause: Cerebral aneurysm. Relation not specified for: FH: hypertension Hx Contributory? No (ALBERTO CRENSHAW) Review of Systems Review of Systems Constitutional: Reports: no symptoms. Eyes: Reports: no symptoms. Ears, Nose, Throat, Mouth: Reports: no symptoms. Respiratory: Reports: no symptoms. Cardiovascular: Reports: no symptoms. Gastrointestinal/Abdominal: Reports: no symptoms. Genitourinary: Reports: no symptoms. Musculoskeletal: Reports: see HPI, joint pain. Skin: Reports: see HPI. Neurological/Psychological: Reports: no symptoms. All Other Systems: Reviewed and Negative (ALBERTO CRENSHAW) Physical Exam Physical Exam General Appearance: no apparent distress, alert, cachetic Comments: Well-developed well-nourished person in no acute distress HEENT: Normal EENT exam, Neck: Supple, no lymphadenopathy, normal range of motion without pain or tenderness Back: Nontender, no CVA tenderness. Full range of motion Cardiovascular: Regular rate and rhythms no murmurs rubs or gallops, normal JVP Respiratory: Chest nontender. No respiratory distress.breath sounds clear to auscultation bilaterally Abdomen: Soft, nontender nondistended, no appreciable organomegaly. Normal bowel sounds. No ascites Extremity: No edema, no calf tenderness to palpation, normal and equal pulses. Left shoulder normal inspection generalized glenohumeral point tenderness decreased active range of motion noted with 20 of flexion abduction Right knee noted skin abrasion to the anterior aspect Full active range of motion generalized point tenderness noted negative anterior drawer test negative posterior drawer test negative valgus stress test negative varus stress test Neuro: Alert oriented x3, motor sensory normal, Skin: No appreciable rash on exposed skin, skin is warm and dry. Psych: Mood and affect is normal, memory and judgment is normal. Bilateral pedal pulse intact bilateral radial pulses intact +2 Core Measures ACS in differential dx? No Severe Sepsis Present: No Septic Shock Present: No (ALBERTO CRENSHAW) Progress Differential Diagnosis: abd injury, C/T/L spine injury, ext injury, ICH, pelvis injury, pnemothorax, spinal cord injury, FX Plan of Care: Orders Procedure Date/time Status Durable Medical Equipment 06/11 2001 Active Patient's right knee skin abrasion was cleaned off with nursing staff gauze and Gal wrap was applied pre-and post-neurovascular was intact. No osseous injury noted on x-ray shoulder immobilizer was placed to left shoulder pre-and post- neurovascular was intact. Patient had normal steady gait on discharge (ALBERTO CRENSHAW) Diagnostic Imaging: Viewed by Me: Radiology Read. Radiology Impression: no fracture Comments: PATIENT: HIRAL ANGUIANO PRESENT AGE: 55 PATIENT ACCOUNT NO: [id number] : 61 LOCATION: [facility] ORDERING PHYSICIAN: ALBERTO DENNY SERVICE DATE: 06/11/16 EXAM TYPE: RAD - XRY-KNEE COMPLETE RIGHT EXAMINATION: XR KNEE, RIGHT CLINICAL INFORMATION: Fall, pain COMPARISON: 04/06/2016 x-ray TECHNIQUE: Four views of the right knee. FINDINGS: There is no acute fracture or dislocation of right knee. There is chondrocalcinosis. No joint effusion seen. The soft tissue is unremarkable. There is mild sharpening of the tibial spine which can represent degenerative change. IMPRESSION: No acute fracture or dislocation of right knee. PATIENT: HIRAL ANGUIANO PRESENT AGE: 55 PATIENT ACCOUNT NO: [id number] : 61 LOCATION: [facility] ORDERING PHYSICIAN: ALBERTO DENNY SERVICE DATE: 06/11/16 EXAM TYPE: RAD - XRY-SHOULDER COMPLETE-LEFT EXAMINATION: XR SHOULDER, LEFT CLINICAL INFORMATION: Fall, shoulder pain COMPARISON: 07/05/2014 x-ray TECHNIQUE: 5 views of the left shoulder were obtained. FINDINGS: There is no acute fracture or dislocation of left shoulder. Glenohumeral and acromioclavicular alignment is anatomic with normal joint space. No abnormal soft tissue calcifications. The visualized lung is clear. IMPRESSION: No acute fracture or dislocation of left shoulder. (ALBERTO CRENSHAW) Departure Departure Disposition: HOME OR SELF CARE Condition: Stable Clinical Impression Primary Impression: Left shoulder pain Secondary Impressions: Right knee pain, Skin abrasion Referrals: KWAME PERSAUD,MANDIE (PCP/Family) GERA PERSAUD,DONN Maxwell Additional Instructions: As discussed begin icing the area directly 20 minutes every 2 hours. Begin the prescription of ketorolac for pain and inflammation. If no better in one week follow-up with an established orthopedic Dr. BOSS for further evaluation treatment. If symptoms worsen return to emergency. Begin to use the shoulder immobilizer placed on the in the emergency room UNTIL YOU CAN move YOUR shoulder without pain Departure Forms: Customer Survey General Discharge Information Prescriptions: Current Visit Scripts Ketorolac Tromethamine 1 TAB PO TID PRN PAIN #15 TAB RECEIVED im IN er (ALBERTO CRENSHAW) PA/ASSOCIATE SCHOOL PSYCHOLOGIST Co-Sign Statement Statement: ED Attending supervision documentation- [] I saw and evaluated the patient. I have also reviewed all the pertinent lab results and diagnostic results. I agree with the findings and the plan of care as documented in the PA's/ASSOCIATE SCHOOL PSYCHOLOGIST's documentation. [x] I have reviewed the ED Record and agree with the PA's/ASSOCIATE SCHOOL PSYCHOLOGIST's documentation. [] Additions or exceptions (if any) to the PAs/ASSOCIATE SCHOOL PSYCHOLOGIST's note and plan are summarized below: [] (KATHI PERSAUD,CADE Maxwell)
--- NOTE | 2016-06-11 19:34 | RADIOLOGY REPORT ---
EXAMINATION: XR SHOULDER, LEFT CLINICAL INFORMATION: Fall, shoulder pain COMPARISON: 07/05/2014 x-ray TECHNIQUE: 5 views of the left shoulder were obtained. FINDINGS: There is no acute fracture or dislocation of left shoulder. Glenohumeral and acromioclavicular alignment is anatomic with normal joint space. No abnormal soft tissue calcifications. The visualized lung is clear. IMPRESSION: No acute fracture or dislocation of left shoulder.
--- NOTE | 2016-06-11 19:36 | RADIOLOGY REPORT ---
EXAMINATION: XR KNEE, RIGHT CLINICAL INFORMATION: Fall, pain COMPARISON: 04/06/2016 x-ray TECHNIQUE: Four views of the right knee. FINDINGS: There is no acute fracture or dislocation of right knee. There is chondrocalcinosis. No joint effusion seen. The soft tissue is unremarkable. There is mild sharpening of the tibial spine which can represent degenerative change. IMPRESSION: No acute fracture or dislocation of right knee.
[2016-06-11] MEDS ORDERED: OMEPRAZOLE20 M2 PO (20:00)
[2016-06-11] MEDS ORDERED: VENTOLIN HFA18 GM INH (20:00)
[2016-06-11] MEDS ORDERED: LEVEMIR100 UNIT/1 SC (20:01)
[2016-06-11] MEDS ORDERED: KETOROLAC TROME10 M1 PO (20:03)
[2016-06-11 20:22] VITALS: BP 142/88
== END 2016-06-11 20:23 ==
LOC: ERH 17:21
DX: S80.211A Abrasion, right knee, initial encounter (principal); M25.512 Pain in left shoulder; M25.561 Pain in right knee; W18.09XA Striking against other object with subsequent fall, initial encounter; Y93.01 Activity, walking, marching and hiking; Y92.9 Unspecified place or not applicable
CPT/HCPCS: 73030-LT; 73562-RT; 96372; J1885

== ENCOUNTER 2016-07-30 19:08 | Emergency (ER) | payer OTHER, MEDICARE ==
[~2016-07-30] VITALS: Ht 162.6 cm; Wt 113.4 kg
[~2016-07-30 19:08] MED LIST changes: +KETOROLAC TROME10 M1 PO; +OMEPRAZOLE20 M2 PO; +VENTOLIN HFA18 GM INH
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
[2016-07-30] MEDS ORDERED: LORAZEPAM0.5 M1 PO (20:27)
--- NOTE | 2016-07-30 20:39 | RADIOLOGY REPORT ---
EXAMINATION: AP AND LATERAL VIEWS OF THE LUMBAR SPINE AP AND FROG-LEG LATERAL VIEWS OF THE RIGHT HIP AP PELVIS AND AP AND FROG-LEG LATERAL VIEWS OF THE LEFT HIP CLINICAL INFORMATION: Pain after fall COMPARISON: CT abdomen pelvis 6 03/15/2016 TECHNIQUE: As above FINDINGS: 5 nonrib-bearing lumbar type vertebral bodies. Mild convex left lumbar rotoscoliosis. Degenerative changes of the bilateral sacroiliac joints. Normal sagittal alignment. Lower lumbar facet arthropathy. Surgical clips. Aortobiiliac vascular calcifications. No compression fracture. Mild loss of disc height at L2-L3 and L3-L4. Moderate superior joint space narrowing of the left hip with acetabular sclerosis. No left hip or pelvic fracture seen. There is degenerative arthrosis of the pubic symphysis. No right hip or pelvic fracture seen. Mild superior joint space narrowing of the right hip. IMPRESSION: No acute osseous abnormality of the lumbar spine, pelvis, or hips. Degenerative changes as described above.
[2016-07-30] MEDS ORDERED: PERCOCET 5-3251 EACH PO (21:57)
[2016-07-30] MEDS ORDERED: IBUPROFEN800 M1 PO (21:57)
[2016-07-30] MEDS ORDERED: CEFUROXIME500 MG PO (21:57)
[2016-07-30 21:58] VITALS: BP 131/76
== END 2016-07-30 22:21 ==
LOC: ERH 19:08
DX: S30.810A Abrasion of lower back and pelvis, initial encounter (principal); T14.8 Other injury of unspecified body region; N39.0 Urinary tract infection, site not specified; M25.551 Pain in right hip; M25.552 Pain in left hip; Y04.0XXA Assault by unarmed brawl or fight, initial encounter; Y93.9 Activity, unspecified
CPT/HCPCS: 72100; 73502-LT; 73502-RT; 81001; 90471; 90714

== ENCOUNTER 2017-05-23 16:15 | Emergency (ER) | payer OTHER, MEDICARE ==
[~2017-05-23] VITALS: Ht 162.6 cm; Wt 117.9 kg
[~2017-05-23 16:15] MED LIST changes: +CEFUROXIME500 MG PO; +IBUPROFEN800 M1 PO; +LORAZEPAM0.5 M1 PO
[2017-05-23 16:22] VITALS: BP 121/82
[2017-05-23 16:47] LABS: ABSOLUTE BASOPHIL COUNT 0 /CUMM (0.0-0.2); ABSOLUTE EOSINOPHIL COUNT 0 /CUMM (0.0-0.7); ABSOLUTE GRANULOCYTE CT 3.5 /CUMM (1.4-6.5); ABSOLUTE LYMPH COUNT 1.1 /CUMM (1.2-3.4); ABSOLUTE MONOCYTE COUNT 0.6 /CUMM (0.10-0.60); BASOPHIL % 0.5 % (0.0-2.0); EOSINOPHIL % 0 % (0-5); GRANULOCYTE % 66.7 % (42.2-75.2); HEMATOCRIT 40.4 % (37-47); MEAN CORPUSCULAR HGB 34.2 PG (27.0-31.0); MEAN CORPUSCULAR HGB CONC 33.8 G/DL (33.0-37.0); MEAN CORPUSCULAR VOLUME 101.2 FL (81.0-99.0); MEAN PLATELET VOLUME 7.9 FL (7.4-10.4); PLATELET COUNT 56 /CUMM (130-400); RBC DISTRIBUTION WIDTH 19.1 % (11.5-14.5); RED BLOOD CELL CT 3.99 /CUMM (4.20-5.40); WHITE BLOOD CELL COUNT 5.2 /CUMM (4.8-10.8)
--- NOTE | 2017-05-23 18:01 | ED GENERAL ADULT ---
History of Present Illness General Chief Complaint: General Adult Stated Complaint: WITNESS SYNCOPE EPISODE PER FRIEND Source: patient Exam Limitations: poor historian Vital Signs & Intake/Output Vital Signs & Intake/Output Vital Signs Date Time Temp Pulse Resp B/P B/P Pulse O2 O2 Flow FiO2 Mean Ox Delivery Rate 05/23 1622 96.3 111 18 121/82 96 Room Air Allergies Coded Allergies: NO KNOWN ALLERGIES (01/03/11) Triage Note: PT STATES SHE BLACKED OUT AND WAS SITTING IN CHAIR SLID OUT OF CHAIR AND LANDED ON HER HEAD. PT STATES THIS HAPPEND LAST WEEK ALSO. PT C/O NECK PAIN. PT STATES SHE DOES HAVE PROBLEMS WITH HER HEART SOMETIMES IT SKIPS A BEAT AND SHE CAN'T CATCH HER BREATH. Triage Nurses Notes Reviewed? yes Onset: Abrupt Duration: hour(s): Timing: recent history HPI: 05/23/17 5:30 PM 56-year-old female complains of fall, head injury, and neck pain. She has a past medical history of diabetes mellitus. She admits to drinking alcohol. She says she slumped over and fell and hit her head. She has a large abrasion to the top of her forehead. She does have some bony neck tenderness. The onset of the symptoms was abrupt, the duration was earlier today, the severity is significant as her symptoms required her to come to the emergency department for care. (Prosper Villa DO) Reconcile Medications Albuterol Sulfate (Ventolin Hfa) 90 MCG HFA.AER.AD 2 PUF INH PRN RESPIRATORY (Reported) Cefuroxime Axetil (Cefuroxime) 500 MG TABLET 1 TAB PO BID uti Cyclobenzaprine HCl 10 MG TABLET 1 TAB PO Q8P PAIN OR SPASM Duloxetine Hydrochloride (Cymbalta) 20 MG CAPSULE.DR 1 CAP PO BID DEPRESSION (Reported) Furosemide (Lasix) 20 MG TABLET 1 TAB PO DAILY DIURETIC (Reported) Gabapentin 300 MG CAPSULE 2 CAP PO Q8 NEUROPATHIC PAIN/ANXIETY Ibuprofen 800 MG TABLET 1 TAB PO TID PRN pain Ibuprofen 600 MG TABLET 1 TAB PO TID PRN PAIN with food Insulin Aspart (Novolog) 100 UNIT/ML VIAL 0 UNITS SC TIDAC/HS diabetes BEFORE MEALS Blood Insulin Sugar Units <80 0 81-150 6 151-200 8 201-250 9 251-300 10 301-350 11 351-400 13 >400 Call Doctor AT BEDTIME Blood Insulin Sugar Units <80 0 81-100 0 101-200 0 201-250 0 251-300 4 301-350 5 351-400 6 >400 Call Doctor Insulin Detemir (Levemir) 100 UNIT/ML VIAL 6 UNITS SC BID DM (Reported) Lorazepam 0.5 MG TABLET 1 TAB PO BIDP PRN ANXIETY (Reported) Metoprolol Succinate 25 MG TAB 1 TAB PO DAILY afib Olanzapine (Zyprexa) 5 MG TABLET 1 TAB PO QPM SLEEP (Reported) Omeprazole 20 MG CAPSULE.DR 1 CAP PO DAILY GI (Reported) Oxycodone HCl/Acetaminophen (Percocet 5-325 MG Tablet) 5 MG-325 MG TABLET 1 TAB PO 4XDP PRN PAIN four...[id number] (Shorty PERSAUD,Rom Cohen) Past History Travel History Traveled to [place] past 21 day No Medical History Any Pertinent Medical History? see below for history Neurological: delerium, severe bout of hepatic encephalopathy, 02/2012 EENT: NONE Cardiovascular: hypertension Respiratory: obstructive sleep apnea Gastrointestinal: colonoscopy in 12/22 one small TA and diverticulosis, EGD showed portal hypertensive gastropathy, but no varices diverticulosis coli colon TA 12/16/14: ? El's esophagus vs samplng error with indefinite dysplasia Hepatic: cirrhosis, hepatitis C, hepatic encephalopathy, EtOH abuse Renal: urinary incontinence, CKD Musculoskeletal: CHRONIC BACK PAIN BILATERAL LEG PAIN Psychiatric: alcohol dependence, anxiety, bipolar disease, chronic pain disorder , depression, insomnia, opioid dependence (prescribed by PCP) Endocrine: diabetes Blood Disorders: coagulopathy, pancytopenia Cancer(s): cervical cancer, uterine cancer MRI SPECIALIST/Reproductive: NONE History of MRSA: No History of VRE: No History of CDIFF: No Tetanus Vaccine: 07/30/16 Surgical History Surgical History: cholecystectomy, leep PROCEDURE Psychosocial History Who do you live with Patient/Self Services at Home Nursing What is your primary language Trinidadian Tobacco Use: Current Daily Use Daily Tobacco Use Amount/Type: => 5 Cigarettes daily ETOH Use: occasional use Illicit Drug Use: denies illicit drug use Family History Family History, If Any: FATHER, , Age 57; Cause: ASHD (arteriosclerotic heart disease). MOTHER, , Age 58; Cause: Cerebral aneurysm. Relation not specified for: FH: hypertension Hx Contributory? No (Prosper Villa DO) Review of Systems Review of Systems Constitutional: Denies: fever. EENTM: Denies: visual changes. Respiratory: Denies: short of breath. Cardiovascular: Denies: chest pain. GI: Denies: abdominal pain. Genitourinary: Reports: no symptoms. Musculoskeletal: Reports: neck pain. Skin: Reports: see HPI. Neurological/Psychological: Reports: headache. Hematologic/Endocrine: Reports: bruising. (Prosper Villa DO) Physical Exam Physical Exam General Appearance: alert, awake, anxious, mild distress Head: large abrasion right frontal scalp Eyes: Bilateral: normal appearance, PERRL, EOMI. Ears, Nose, Throat: normal pharynx, normal ENT inspection, bony neck tenderness Neck: supple, limited range of motion, tender midline Respiratory: normal breath sounds, chest non-tender, no respiratory distress Cardiovascular: regular rate/rhythm Peripheral Pulses: 4+ radial (R), 4+ radial (L) Gastrointestinal: soft, non-tender Back: decreased range of motion Extremities: pedal edema Neurologic/Psych: awake, alert, oriented x 3 Skin: normal color, abrasion right frontal scalp Core Measures ACS in differential dx? No CVA/TIA Diagnosis: No Sepsis Present: No Sepsis Focused Exam Completed? No (Prosper Villa DO) Progress Differential Diagnoses I considered the following diagnoses in my evaluation of the patient: [ Dysrhythmia, intracranial bleed, diabetic ketoacidosis, anemia, electrolyte derangement, alcohol intoxication, hepatic encephalopathy. ] Plan of Care: Orders Procedure Date/time Status AMMONIA 05/23 2032 Complete URINE DRUG SCREEN FOR ER ONLY 05/23 2026 Active Lab Add-on Test 05/23 2025 Active TROPONIN LEVEL 05/23 1920 Complete EKG 05/23 192 Active TROPONIN LEVEL 05/23 1620 Complete MAGNESIUM 05/23 1620 Complete ETHANOL 05/23 1620 Complete D-DIMER 05/23 1620 Complete COMPREHENSIVE METABOLIC PANEL 05/23 1620 Complete CBC WITHOUT DIFFERENTIAL 05/23 162 Complete EKG 05/23 1620 Active Laboratory Tests 05/23/17 204: Troponin I 0.02 05/23/17 204: Ammonia 34 H, D-Dimer High Sensitivty 599 H 05/23/17 1711: Anion Gap 9, Estimated GFR 43 L, BUN/Creatinine Ratio 6.9 L, Glucose 179 H, Calcium 8.6, Magnesium 1.3 L, Total Bilirubin 2.8 H, AST 120 H, ALT 58 H, Alkaline Phosphatase 231 H, Troponin I 0.02, Total Protein 7.8, Albumin 2.6 L, Globulin 5.2 H, Albumin/Globulin Ratio 0.5 L, Serum Alcohol 52.0 05/23/17 1630: CBC w Diff NO MAN DIFF REQ, RBC 3.99 L, MCV 101.2 H, MCH 34.2 H, MCHC 33.8, RDW 19.1 H, MPV 7.9, Gran % 66.7, Lymphocytes % 22.0, Monocytes % 10.8 H, Eosinophils % 0, Basophils % 0.5, Absolute Granulocytes 3.5, Absolute Lymphocytes 1.1 L, Absolute Monocytes 0.6, Absolute Eosinophils 0, Absolute Basophils 0 Initial ED EKG: nonspecific ST T wave chg, sinus tachycardia (Prosper Villa DO) Comments: Patient advised of the elevated d-dimer and our need to do a CAT scan of her chest to make sure she does not have a blood clot in her lung. Patient states that her mother had a history of DVT as well as PE. Patient states that she does not want to have the CAT scan of her chest. Patient states that she does not have any chest pain or shortness of breath. Patient advised that there are times that the patient may not have those symptoms and yet still have a blood clot. Patient was informed that some studies show that of to 30% of the patient to have an episode of passing out without any cause are found to have a blood clot in her lung. Patient verbally understands these risks and is insistent upon going home. Patient promises to return for further workup if she gets any symptoms. Patient's family is at her bedside and they agree with her going home. They also verbally understands the risk of her leaving prior to completing the workup. (Shorty PERSAUD,Rom Cohen) Departure Departure Condition: Stable Clinical Impression Primary Impression: Syncope Secondary Impressions: Alcohol abuse, Cirrhosis, Elevated liver enzymes, Head injury, Neck pain, Scalp abrasion Referrals: Oleg Vieyra MD (PCP/Family) Departure Forms: Customer Survey General Discharge Information Comments 05/23/17 The patient is pending repeat troponin and EKG. Tetanus shot was ordered. She was signed out to Dr. Oro at 7 PM. PATIENT: HIRAL ANGUIANO PRESENT AGE: 56 PATIENT ACCOUNT NO: [id number] : 61 LOCATION: [facility] ORDERING PHYSICIAN: Prosper Villa DO SERVICE DATE: 05/23/17 EXAM TYPE: CAT - CT CERV SPINE WO IV CONTRAST; CT HEAD WO IV CONTRAST EXAMINATION: CT HEAD WITHOUT CONTRAST CT CERVICAL SPINE WITHOUT CONTRAST CLINICAL INFORMATION: Fall. Head trauma. Neck pain. COMPARISON: Head CT from 02/12/2012. TECHNIQUE: Contiguous axial imaging was performed from the skullbase to vertex without intravenous administration of contrast. Multidetector helical imaging was performed through the cervical spine. DLP: 996 mGy-cm. FINDINGS: HEAD: There is no evidence of acute intracranial hemorrhage or territorial infarction. No abnormal mass effect or midline shift is seen. Vargas to white matter differentiation is well preserved. No extra-axial fluid collections are identified. There is very mild anterior frontal scalp soft tissue thickening. The ventricles are normal in size. Brain parenchymal attenuation is normal. There is mild to moderate bifrontal volume loss. A depression in the medial wall of the left orbit may be developmental or chronically posttraumatic in etiology. The osseous structures are otherwise normal. The mastoid air cells are well aerated. There are fluid levels in the sphenoid sinuses. There is moderate mucosal thickening partially visualized in the left maxillary antrum and milder mucosal thickening in the right maxillary sinus. Moderate ethmoid sinus disease is also noted. CERVICAL SPINE: No acute fracture or dislocation is identified in the cervical spine. There is moderate to severe multilevel disc space narrowing with endplate spurring throughout the cervical spine. Mild to moderate facet arthropathy is noted. The atlantoaxial articulation is normally maintained. The paraspinal soft tissues are normal. The lung apices are clear. IMPRESSION: 1. No acute intracranial pathology. 2. No evidence of acute cervical spine traumatic injury. Moderate to severe multilevel degenerative disc disease. DICTATED BY: Rom Ceron MD DATE/TIME DICTATED:05/23/171849 TRUSS DESIGNER:RIVERA DATE/TIME TRANSCRIBED:05/23/171849 CONFIDENTIAL, DO NOT COPY WITHOUT APPROPRIATE AUTHORIZATION. <Electronically signed in Other Vendor System> SIGNED BY: Rom Ceron MD [id number] (Prosper Villa DO) Departure Disposition: HOME OR SELF CARE Additional Instructions: RETURN FOR ANY CHEST PAIN, SHORTNESS OF BREATH OR ANY OTHER CONCERNS SO WE CAN FINISH THE WORK UP Prescriptions: Current Visit Scripts Cyclobenzaprine HCl 1 TAB PO Q8P #20 TAB Ibuprofen 1 TAB PO TID PRN PAIN #20 TAB with food (Shorty PERSAUD,Rom Cohen) Critical Care Note Critical Care Note Critical Care Time: non-applicable (Prosper Villa DO)
--- NOTE | 2017-05-23 19:00 | CT SCAN REPORT ---
EXAMINATION: CT HEAD WITHOUT CONTRAST CT CERVICAL SPINE WITHOUT CONTRAST CLINICAL INFORMATION: Fall. Head trauma. Neck pain. COMPARISON: Head CT from 02/12/2012. TECHNIQUE: Contiguous axial imaging was performed from the skullbase to vertex without intravenous administration of contrast. Multidetector helical imaging was performed through the cervical spine. DLP: 996 mGy-cm. FINDINGS: HEAD: There is no evidence of acute intracranial hemorrhage or territorial infarction. No abnormal mass effect or midline shift is seen. Vargas to white matter differentiation is well preserved. No extra-axial fluid collections are identified. There is very mild anterior frontal scalp soft tissue thickening. The ventricles are normal in size. Brain parenchymal attenuation is normal. There is mild to moderate bifrontal volume loss. A depression in the medial wall of the left orbit may be developmental or chronically posttraumatic in etiology. The osseous structures are otherwise normal. The mastoid air cells are well aerated. There are fluid levels in the sphenoid sinuses. There is moderate mucosal thickening partially visualized in the left maxillary antrum and milder mucosal thickening in the right maxillary sinus. Moderate ethmoid sinus disease is also noted. CERVICAL SPINE: No acute fracture or dislocation is identified in the cervical spine. There is moderate to severe multilevel disc space narrowing with endplate spurring throughout the cervical spine. Mild to moderate facet arthropathy is noted. The atlantoaxial articulation is normally maintained. The paraspinal soft tissues are normal. The lung apices are clear. IMPRESSION: 1. No acute intracranial pathology. 2. No evidence of acute cervical spine traumatic injury. Moderate to severe multilevel degenerative disc disease.
--- NOTE | 2017-05-23 21:10 | RADIOLOGY REPORT ---
EXAMINATION: CHEST 2 VIEWS CLINICAL INFORMATION: Choking episode. COMPARISON: 03/15/2016. TECHNIQUE: PA and lateral views of the chest were obtained. FINDINGS: The cardiac silhouette is not enlarged. The mediastinal and hilar contours are unremarkable. There are neither pleural effusions nor pneumothoraces. There are no consolidations. The osseous structures are unremarkable. IMPRESSION: No evidence for acute disease.
[2017-05-23] MEDS ORDERED: IBUPROFEN600 M1 PO (22:14)
[2017-05-23] MEDS ORDERED: CYCLOBENZAPRINE10 M1 PO (22:14)
== END 2017-05-23 22:15 ==
LOC: ERH 16:15
PROVIDERS: Physician Assistant Medical
DX: R55 Syncope and collapse (principal); S00.01XA Abrasion of scalp, initial encounter; S09.90XA Unspecified injury of head, initial encounter; K74.60 Unspecified cirrhosis of liver; F10.10 Alcohol abuse, uncomplicated; R94.5 Abnormal results of liver function studies; M54.2 Cervicalgia
CPT/HCPCS: 71046; 80307; 90471; 90714; 93005; 93010; G0480

== ENCOUNTER 2017-12-12 16:20 | Emergency (ER) | payer OTHER, MEDICARE ==
[~2017-12-12] VITALS: Ht 165.1 cm; Wt 117.9 kg
[~2017-12-12 16:20] MED LIST changes: +CYCLOBENZAPRINE10 M1 PO; +IBUPROFEN600 M1 PO
--- NOTE | 2017-12-12 17:09 | RADIOLOGY REPORT ---
EXAMINATION: XR CHEST CLINICAL INFORMATION: Chest pain COMPARISON: CTA chest 06/18/2017 and chest x-ray 05/23/2017 TECHNIQUE: 2 views of the chest were obtained. FINDINGS: Stable cardiac silhouette. Lungs are adequately aerated. No lobar consolidation. Minimal left basilar atelectasis. No gross pleural effusion. No pneumothorax. 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 Mild diffuse degenerative changes of the spine. IMPRESSION: No lobar consolidation or gross pleural effusion.
[2017-12-12 17:25] LABS: ABSOLUTE BASOPHIL COUNT 0 /CUMM (0.0-0.2); ABSOLUTE EOSINOPHIL COUNT 0 /CUMM (0.0-0.7); ABSOLUTE GRANULOCYTE CT 2.6 /CUMM (1.4-6.5); ABSOLUTE LYMPH COUNT 0.5 /CUMM (1.2-3.4); ABSOLUTE MONOCYTE COUNT 0.5 /CUMM (0.10-0.60); BASOPHIL % 0.1 % (0.0-2.0); EOSINOPHIL % 0 % (0-5); GRANULOCYTE % 72.2 % (42.2-75.2); HEMATOCRIT 34.3 % (37-47); MEAN CORPUSCULAR HGB 37.2 PG (27.0-31.0); MEAN CORPUSCULAR VOLUME 109.3 FL (81.0-99.0); MEAN PLATELET VOLUME 7.3 FL (7.4-10.4); PLATELET COUNT 88 /CUMM (130-400); RBC DISTRIBUTION WIDTH 20.4 % (11.5-14.5); RED BLOOD CELL CT 3.14 /CUMM (4.20-5.40); WHITE BLOOD CELL COUNT 3.6 /CUMM (4.8-10.8)
[2017-12-12 18:49] VITALS: BP 162/91
--- NOTE | 2017-12-12 20:01 | ED CARDIAC/CP/PALPITATIONS ---
History of Present Illness General Chief Complaint: General Adult Stated Complaint: CHEST PAIN/DIARRHEA Source: patient, old records Exam Limitations: no limitations Vital Signs & Intake/Output Vital Signs & Intake/Output Vital Signs Date Time Temp Pulse Resp B/P B/P Pulse O2 O2 Flow FiO2 Mean Ox Delivery Rate 12/13 2003 93 12/12 1849 97.7 92 20 162/91 96 Room Air 12/12 1643 97.7 96 22 108/77 92 Room Air Allergies Coded Allergies: acetaminophen (From TYLENOL) (LIVER DYSFUNCTION 12/12/17) Reconcile Medications Albuterol Sulfate (Ventolin Hfa) 90 MCG HFA.AER.AD 2 PUF INH PRN RESPIRATORY (Reported) Cyclobenzaprine HCl 10 MG TABLET 1 TAB PO Q8P PAIN OR SPASM Duloxetine Hydrochloride (Cymbalta) 20 MG CAPSULE.DR 1 CAP PO BID DEPRESSION (Reported) Furosemide (Lasix) 20 MG TABLET 1 TAB PO DAILY DIURETIC (Reported) Gabapentin 300 MG CAPSULE 2 CAP PO Q8 NEUROPATHIC PAIN/ANXIETY Ibuprofen 600 MG TABLET 1 TAB PO TID PRN PAIN with food Ibuprofen 600 MG TABLET 1 TAB PO Q6P PRN pain with food Insulin Aspart (Novolog) 100 UNIT/ML VIAL 0 UNITS SC TIDAC/HS diabetes BEFORE MEALS Blood Insulin Sugar Units <80 0 81-150 6 151-200 8 201-250 9 251-300 10 301-350 11 351-400 13 >400 Call Doctor AT BEDTIME Blood Insulin Sugar Units <80 0 81-100 0 101-200 0 201-250 0 251-300 4 301-350 5 351-400 6 >400 Call Doctor Insulin Detemir (Levemir) 100 UNIT/ML VIAL 6 UNITS SC BID DM (Reported) Loperamide HCl (Imodium A-D) 2 MG TABLET 0 PO SEE ADMIN CRITERIA PRN diarrhea 1 tab after each loose stool up to 7 per day Lorazepam 0.5 MG TABLET 1 TAB PO BIDP PRN ANXIETY (Reported) Magnesium Oxide (Magnesium) 400 MG CAPSULE 1 CAP PO DAILY hypomagnesemia Metoprolol Succinate 25 MG TAB 1 TAB PO DAILY afib Olanzapine (Zyprexa) 5 MG TABLET 1 TAB PO QPM SLEEP (Reported) Omeprazole 20 MG CAPSULE.DR 1 CAP PO DAILY GI (Reported) Oxycodone HCl/Acetaminophen (Percocet 5-325 MG Tablet) 5 MG-325 MG TABLET 1 TAB PO 4XDP PRN PAIN four...[id number] Triage Note: 56F REPORTS 2 DAYS OF STABBING RIGHT SIDED CP THAT RADIATES INTO BACK W ASSOCIATED SOB AND HASN'T BEEN ABLE TO SMOKE. O2 SAT 92-93% RA. SPEECH IS SLOW BUT ORGANIZED. DENIES MITIGATING OR ALLEVIATING FACTORS FOR PAIN/ TOOK ATIVAN LAST NIGHT WHICH DIDN'T HELP. REPORTS LIVER DYSFUNCTION, DENIES ETOH. HX DEPENDENCE AND EXTENSIVE MEDICAL HX INCLUDING HEPATIC ENCEPHALOPATHY. AAOX4 AT THIS TIME. TAKEN TO EKG ALCOVE Triage Nurses Notes Reviewed? yes Onset: 2 days Duration: day(s): Timing: recent history Quality/Severity: mild, moderate, sharp Location: substernal Radiation: back Activities at Onset: rest Prior Chest Pain/Card Workup: non-cardiac Modifying Factors: Improves With: breathing, coughing, movement, palpation. Nitro Today/Relief: no nitro taken today Aspirin Today: no aspirin today Associated Symptoms: diarrhea, shortness of breath LMP (ages 10-50): post menopausal : No Patient currently breastfeeds: No HPI: 2 days prior to admission patient complains of right-sided chest pain described as sharp mild to moderate in severity worse with deep breath coughing associated with nonproductive cough tactile fever unable to smoke and loose watery stool. She denies nausea vomiting abdominal pain shortness of breath headache dysuria rash bleeding. Past History Travel History Traveled to [place] past 21 day No Medical History Any Pertinent Medical History? see below for history Neurological: delerium, severe bout of hepatic encephalopathy, 02/2012 EENT: NONE Cardiovascular: hypertension Respiratory: obstructive sleep apnea Gastrointestinal: colonoscopy in 12/22 one small TA and diverticulosis, EGD showed portal hypertensive gastropathy, but no varices diverticulosis coli colon TA 12/16/14: ? El's esophagus vs samplng error with indefinite dysplasia Hepatic: cirrhosis, hepatitis C, hepatic encephalopathy, EtOH abuse Renal: urinary incontinence, CKD Musculoskeletal: CHRONIC BACK PAIN BILATERAL LEG PAIN Psychiatric: alcohol dependence, anxiety, bipolar disease, chronic pain disorder , depression, insomnia, opioid dependence (prescribed by PCP) Endocrine: diabetes Blood Disorders: coagulopathy, pancytopenia Cancer(s): cervical cancer, uterine cancer STATOR TESTER/Reproductive: NONE History of MRSA: No History of VRE: No History of CDIFF: No Tetanus Vaccine: 11/01/17 Surgical History Surgical History: cholecystectomy, leep PROCEDURE Psychosocial History Who do you live with Patient/Self Services at Home Nursing What is your primary language Sami Tobacco Use: Current Daily Use Daily Tobacco Use Amount/Type: => 5 Cigarettes daily Family History Family History, If Any: FATHER, , Age 57; Cause: ASHD (arteriosclerotic heart disease). MOTHER, , Age 58; Cause: Cerebral aneurysm. Relation not specified for: FH: hypertension Hx Contributory? No Review of Systems Review of Systems Constitutional: Reports: no symptoms. EENTM: Reports: no symptoms. Respiratory: Reports: see HPI, cough. Denies: sputum production. Cardiovascular: Reports: see HPI, chest pain. GI: Reports: see HPI, diarrhea. Genitourinary: Reports: no symptoms. Musculoskeletal: Reports: no symptoms. Skin: Reports: no symptoms. Neurological/Psychological: Reports: no symptoms. Hematologic/Endocrine: Reports: no symptoms. Immunologic/Allergic: Reports: no symptoms. All Other Systems: Reviewed and Negative Physical Exam Physical Exam General Appearance: well developed/nourished, alert, awake, anxious, mild distress, obese Head: atraumatic, normal appearance Eyes: Bilateral: normal appearance, PERRL, EOMI. Ears, Nose, Throat: normal pharynx, normal ENT inspection, hearing grossly normal Neck: normal inspection, supple, full range of motion, no midline tenderness Respiratory: normal breath sounds, chest non-tender, no respiratory distress, quiet respiration, lungs clear Cardiovascular: regular rate/rhythm, normal peripheral pulses, norml femoral pulses equa Peripheral Pulses: 4+ carotid (R), 4+ carotid (L) Gastrointestinal: normal bowel sounds, soft, non-tender, no organomegaly Back: normal inspection, normal range of motion, no vertebral tenderness Extremities: normal inspection, normal capillary refill, normal range of motion, no edema, no ligament instability Neurologic/Psych: no motor/sensory deficits, awake, alert, oriented x 3, normal gait, 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 Skin: intact, normal color, warm/dry Lymphatic: no anterior cervical radha Core Measures ACS in differential dx? No CVA/TIA Diagnosis No Sepsis Present: No Sepsis Focused Exam Completed? No Progress Differential Diagnosis: costochondritis, hyperkalemia, musculoskeletal pain, pneumonia Plan of Care: Orders Procedure Date/time Status Add-on Test (ER Only) 12/12 192 Active ETHANOL 12/12 165 Complete TROPONIN LEVEL 12/12 162 Complete MAGNESIUM 12/12 162 Complete COMPREHENSIVE METABOLIC PANEL 12/12 162 Complete CBC WITHOUT DIFFERENTIAL 12/12 1624 Complete EKG 12/12 162 Active Laboratory Tests 12/12/17 1658: Anion Gap 6, Estimated GFR 33 L, BUN/Creatinine Ratio 7.5, Glucose 173 H, Calcium 8.0 L, Magnesium 1.3 L, Total Bilirubin 3.4 H, AST 77 H, ALT 39, Alkaline Phosphatase 187 H, Troponin I < 0.01, Total Protein 7.5, Albumin 2.4 L, Globulin 5.1 H, Albumin/Globulin Ratio 0.5 L, CBC w Diff NO MAN DIFF REQ, RBC 3.14 L, MCV 109.3 H, MCH 37.2 H, MCHC 34.0, RDW 20.4 H, MPV 7.3 L, Gran % 72.2, Lymphocytes % 14.3 L, Monocytes % 13.4 H, Eosinophils % 0, Basophils % 0.1, Absolute Granulocytes 2.6, Absolute Lymphocytes 0.5 L, Absolute Monocytes 0.5, Absolute Eosinophils 0, Absolute Basophils 0, Serum Alcohol 14.0 Diagnostic Imaging: Viewed by Me: Radiology Read. Discussed w/RAD: Radiology Read. CXR Impression: no acute abnormality, no infiltrates, normal size heart, normal mediastinum Initial ED EKG: normal axis, normal intervals, normal p-waves, normal QRS complex, normal sinus rhythm, no ST T wave changes Prior EKG: unchanged Rhythm Strip: normal sinus rhythm Departure Departure Time of Disposition: 2018 Disposition: HOME OR SELF CARE Condition: Stable Clinical Impression Primary Impression: Chest wall pain Secondary Impressions: Hypomagnesemia, Viral syndrome Referrals: Azalia PERSAUD,Oleg (PCP/Family) Departure Forms: Customer Survey General Discharge Information Prescriptions: Current Visit Scripts Ibuprofen 1 TAB PO Q6P PRN pain #50 TAB with food Magnesium Oxide (Magnesium) 1 CAP PO DAILY #30 CAP Loperamide HCl (Imodium A-D) 0 PO SEE ADMIN CRITERIA PRN diarrhea #24 TAB 1 tab after each loose stool up to 7 per day Critical Care Note Critical Care Note Critical Care Time: non-applicable
[2017-12-12] MEDS ORDERED: IBUPROFEN600 M1 PO (20:22)
[2017-12-12] MEDS ORDERED: MAGNESIUM400 M1 PO (20:22)
[2017-12-12] MEDS ORDERED: IMODIUM A-D2 M1 PO (20:22)
== END 2017-12-12 20:35 ==
LOC: ERH 16:20
PROVIDERS: Physician Assistant
DX: R07.89 Other chest pain (principal); E83.42 Hypomagnesemia; B34.9 Viral infection, unspecified; R41.0 Disorientation, unspecified; G47.33 Obstructive sleep apnea (adult) (pediatric); I10 Essential (primary) hypertension; G47.00 Insomnia, unspecified
CPT/HCPCS: 1263; 71046; 93005; 93010; G0480

== ENCOUNTER 2017-12-26 18:41 | Inpatient (IN) | payer OTHER, MEDICARE ==
[~2017-12-26] VITALS: Ht 165.1 cm; Wt 122.5 kg
[~2017-12-26 18:41] MED LIST changes: +IMODIUM A-D2 M1 PO; +MAGNESIUM400 M1 PO
[2017-12-26 20:00] VITALS: BP 185/84
[2017-12-26 21:17] LABS: ABSOLUTE BASOPHIL COUNT 0 /CUMM (0.0-0.2); ABSOLUTE EOSINOPHIL COUNT 0 /CUMM (0.0-0.7); ABSOLUTE GRANULOCYTE CT 2.6 /CUMM (1.4-6.5); ABSOLUTE LYMPH COUNT 0.7 /CUMM (1.2-3.4); ABSOLUTE MONOCYTE COUNT 0.5 /CUMM (0.10-0.60); BASOPHIL % 0.4 % (0.0-2.0); EOSINOPHIL % 0 % (0-5); HEMATOCRIT 36.2 % (37-47); MEAN CORPUSCULAR HGB 37.1 PG (27.0-31.0); MEAN CORPUSCULAR VOLUME 109.1 FL (81.0-99.0); MEAN PLATELET VOLUME 7.8 FL (7.4-10.4); PLATELET COUNT 98 /CUMM (130-400); RBC DISTRIBUTION WIDTH 21.1 % (11.5-14.5); RED BLOOD CELL CT 3.32 /CUMM (4.20-5.40); WHITE BLOOD CELL COUNT 3.8 /CUMM (4.8-10.8)
[2017-12-26 21:48] VITALS: BP 169/82
[2017-12-26 22:13] LABS: PT 19.3 SEC (9.4-12.5); PTT 30 SEC (25-37)
--- NOTE | 2017-12-26 22:19 | CT SCAN REPORT ---
EXAMINATION: CT HEAD WITHOUT CONTRAST CLINICAL INFORMATION: Altered mental status. Patient not speaking. COMPARISON: Head CT dated 11/01/2017. TECHNIQUE: Contiguous axial imaging was performed from the skull base to vertex without intravenous administration of contrast. DLP: 695.4 mGy-cm FINDINGS: There is no evidence of acute intracranial hemorrhage or territorial infarction. No abnormal mass effect or midline shift is seen. Vargas to white matter differentiation is well preserved. No extra-axial fluid collections are identified. There is mild to moderate parenchymal volume loss, more so on the frontal lobes with ex vacuo dilatation of the ventricles. No evidence of hydrocephalus. There is no abnormal attenuation within the brain parenchyma. A depressed defect in the medial wall of the left orbit may be posttraumatic or developmental in etiology. The soft tissues are normal. The mastoid air cells and visualized portions of the paranasal sinuses are well aerated. IMPRESSION: No acute intracranial pathology.
--- NOTE | 2017-12-26 22:44 | RADIOLOGY REPORT ---
EXAMINATION: XR PORTABLE CHEST CLINICAL INFORMATION: Altered mental status. COMPARISON: Chest x-ray from 12/12/2017. TECHNIQUE: Portable frontal view of the chest was obtained. FINDINGS: No airspace opacities or pleural effusions are seen. The cardiomediastinal silhouette is normal. There are mild hypoventilatory changes. The osseous structures are unremarkable. IMPRESSION: Low lung volumes with mild hypoventilatory changes. Otherwise, no acute cardiopulmonary process.
[2017-12-26 23:58] VITALS: BP 152/99
[2017-12-27] VITALS (7 sets, daily range): BP systolic 120–181; BP diastolic 62–92
--- NOTE | 2017-12-27 00:29 | ED GENERAL ADULT ---
History of Present Illness General Chief Complaint: Altered Mental Status Stated Complaint: AMS Source: family Exam Limitations: not alert/orientated, confusion, poor historian Vital Signs & Intake/Output Vital Signs & Intake/Output Vital Signs Date Time Temp Pulse Resp B/P B/P Pulse O2 O2 Flow FiO2 Mean Ox Delivery Rate 12/27 0213 Room Air 12/268 98.3 83 20 152/99 12/26 2358 98.3 83 20 152/99 95 Room Air 12/26 2307 98.0 86 22 164/70 95 Room Air 12/26 2221 97.5 84 18 158/76 96 12/26 2148 82 20 169/82 12/26 2106 94 Room Air 12/27 1999 97.4 84 18 185/84 12/26 1956 97.7 80 22 185/84 95 Room Air 12/26 1913 98.5 91 24 167/89 95 Room Air Allergies Coded Allergies: acetaminophen (From TYLENOL) (LIVER DYSFUNCTION 12/12/17) Reconcile Medications Albuterol Sulfate (Ventolin Hfa) 90 MCG HFA.AER.AD 2 PUF INH PRN RESPIRATORY (Reported) Cyclobenzaprine HCl 10 MG TABLET 1 TAB PO Q8P PAIN OR SPASM Duloxetine Hydrochloride (Cymbalta) 20 MG CAPSULE.DR 1 CAP PO BID DEPRESSION (Reported) Furosemide (Lasix) 20 MG TABLET 1 TAB PO DAILY DIURETIC (Reported) Gabapentin 300 MG CAPSULE 2 CAP PO Q8 NEUROPATHIC PAIN/ANXIETY Ibuprofen 600 MG TABLET 1 TAB PO TID PRN PAIN with food Ibuprofen 600 MG TABLET 1 TAB PO Q6P PRN pain with food Insulin Aspart (Novolog) 100 UNIT/ML VIAL 0 UNITS SC TIDAC/HS diabetes BEFORE MEALS Blood Insulin Sugar Units <80 0 81-150 6 151-200 8 201-250 9 251-300 10 301-350 11 351-400 13 >400 Call Doctor AT BEDTIME Blood Insulin Sugar Units <80 0 81-100 0 101-200 0 201-250 0 251-300 4 301-350 5 351-400 6 >400 Call Doctor Insulin Detemir (Levemir) 100 UNIT/ML VIAL 6 UNITS SC BID DM (Reported) Loperamide HCl (Imodium A-D) 2 MG TABLET 0 PO SEE ADMIN CRITERIA PRN diarrhea 1 tab after each loose stool up to 7 per day Lorazepam 0.5 MG TABLET 1 TAB PO BIDP PRN ANXIETY (Reported) Magnesium Oxide (Magnesium) 400 MG CAPSULE 1 CAP PO DAILY hypomagnesemia Metoprolol Succinate 25 MG TAB 1 TAB PO DAILY afib Olanzapine (Zyprexa) 5 MG TABLET 1 TAB PO QPM SLEEP (Reported) Omeprazole 20 MG CAPSULE.DR 1 CAP PO DAILY GI (Reported) Oxycodone HCl/Acetaminophen (Percocet 5-325 MG Tablet) 5 MG-325 MG TABLET 1 TAB PO 4XDP PRN PAIN four...[id number] Triage Note: PT BIBA FROM HOME AFTER BEING FOUND ALTERED BY HER THIS MORNING. 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 PT ARRIVES ALERT AND CONFUSED AND VERY SLEEPY. NO RESPIRATORY DISTRESS. SKIN WARM AND DRY. Triage Nurses Notes Reviewed? yes HPI: 57 yo F with a pmhx sig for etoh/hep C cirrhosis, DM2 presents to the ED with AMS. Per jake Biswas, whome we spoke with on the phone, patient was confused since this AM. Per boyfriend, states that he was "shaking and staring into thin air." Had one fall today, unsure if hit head. No recent complaints of f/ch/n/v/ ap. Last drink per EMS was 2 days ago, but boyfriend reports she had a few beers yesterday. Is a daily drinker. (Allyn PERSAUD,Josefa) Past History Travel History Traveled to [place] past 21 day No Medical History Any Pertinent Medical History? see below for history Neurological: delerium, severe bout of hepatic encephalopathy, 02/2012 EENT: NONE Cardiovascular: hypertension Respiratory: obstructive sleep apnea Gastrointestinal: colonoscopy in 12/22 one small TA and diverticulosis, EGD showed portal hypertensive gastropathy, but no varices diverticulosis coli colon TA 12/16/14: ? El's esophagus vs samplng error with indefinite dysplasia Hepatic: cirrhosis, hepatitis C, hepatic encephalopathy, EtOH abuse Renal: urinary incontinence, CKD Musculoskeletal: CHRONIC BACK PAIN BILATERAL LEG PAIN Psychiatric: alcohol dependence, anxiety, bipolar disease, chronic pain disorder , depression, insomnia, opioid dependence (prescribed by PCP) Endocrine: diabetes Blood Disorders: coagulopathy, pancytopenia Cancer(s): cervical cancer, uterine cancer OUTSOLE CASER/Reproductive: NONE History of MRSA: No History of VRE: No History of CDIFF: No Isolation History: Contact Tetanus Vaccine: 11/01/17 Surgical History Surgical History: cholecystectomy, leep PROCEDURE Psychosocial History Who do you live with Patient/Self Services at Home Nursing What is your primary language Vincentian Tobacco Use: Cognitive Impairment ETOH Use: alcoholic Illicit Drug Use: UTD Family History Family History, If Any: FATHER, , Age 57; Cause: ASHD (arteriosclerotic heart disease). MOTHER, , Age 58; Cause: Cerebral aneurysm. Relation not specified for: FH: hypertension Hx Contributory? No (Josefa Gruber MD) Review of Systems Review of Systems Constitutional: Denies: no symptoms. Comments Unable to do ROS, but per boyfriend no recent f/ch/cp/sob/n/v/ap Patient had told us "everything hurts" (Josefa Gruber MD) Physical Exam Physical Exam General Appearance: anxious, moderate distress, obese Head: normal appearance Neck: normal inspection Respiratory: chest non-tender, no respiratory distress Cardiovascular: regular rate/rhythm Gastrointestinal: soft, non-tender, obese, no apparent signs of tense ascites Back: normal inspection Core Measures ACS in differential dx? No CVA/TIA Diagnosis: No Sepsis Present: No Sepsis Focused Exam Completed? No (Josefa Gruber MD) Progress Differential Diagnoses I considered the following diagnoses in my evaluation of the patient: DTs, withdrawal, sepsis, HE Plan of Care: Orders Procedure Date/time Status Nothing by Mouth 12/27 B Active CBC WITHOUT DIFFERENTIAL 12/27 0600 Active BASIC ELECTROLYTES PLUS BUN&CR 12/27 0600 Active LACTIC ACID 12/27 0300 Active Patient Data 12/27 0113 Active CULTURE,URINE 12/27 0108 Active Saline Lock 12/27 010 Active Pathway - chart 12/27 010 Active House Staff 12/27 010 Active EKG 12/27 0107 Active Code Status 12/[address] CERV SPINE WO IV CONTRAST 12/27 0028 Active Lab Add-on Test 12/27 UNK Active VTE Mechanical Prophylaxis 12/27 UNK Active Telemetry/Elevator Pilot 12/27 UNK Active Hemoccult 12/27 UNK Active FingerStick- Glucose 12/27 UNK Active Dhillon, Insertion/Removal/Asses 12/27 UNK Active Activity/Ambulation 12/27 UNK Active Restraint- Medical 12/26 2348 Active Add-on Test (ER Only) 12/26 2331 Active Admit to inpatient 12/26 2302 Active LACTIC ACID 12/26 215 Complete MAGNESIUM 12/26 215 Complete ETHANOL 12/26 2149 Complete Add-on Test (ER Only) 12/26 2132 Active ACETOMINOPHEN 12/26 2100 Complete SALICYLATE 12/26 2100 Complete CIWA 12/26 2037 Active Intake & Output 12/26 2001 Active Continuous Observation Monitor 12/26 2000 Active CULTURE,URINE 12/26 2000 Active URINE DRUGS OF ABUSE 12/26 2000 Complete URINALYSIS 12/26 2000 Complete Restraint- Behavioral (Order) 12/26 194 Complete TROPONIN LEVEL 12/26 1853 Complete PARTIAL THROMBOPLASTIN TIME 12/26 1853 Complete PROTHROMBIN TIME 12/26 185 Complete LACTIC ACID 12/26 185 Complete COMPREHENSIVE METABOLIC PANEL 12/26 185 Complete CBC WITHOUT DIFFERENTIAL 12/26 1853 Complete AMMONIA LEVEL 12/26 1853 Complete EKG 12/26 1853 Active Current Medications Sig/Ofelia Start time Last Medication Dose Stop Time Status Admin Insulin Human Regular 0 Q6 12/27 0600 AC (NovoLIN R) Lactulose 1 BOT Q6 12/27 0600 AC (Lactulose Enema (Pom Only)) Dextrose/Sodium 1,000 ML .[id number] 12/27 0100 AC 12/27 Chloride 0124 (D5W-1/2 Normal Saline 1000ML) Lorazepam 2 MG ONCE ONE 12/26 2014 CAN (Ativan) 12/26 2016 Laboratory Tests 12/27/17 0050: Urine Opiates Screen < 100, Methadone Screen 48, Barbiturate Screen < 60, Ur Phencyclidine Scrn < 6.00, Amphetamines Screen < 100, U Benzodiazepines Scrn < 85, Urine Cocaine Screen < 50, Urine Cannabis Screen 8.90, Urine Color YEL, Urine Clarity CLDY H, Urine pH 6.0, Ur Specific [place] 1.020, Urine Protein NEG, Urine Ketones NEG, Urine Nitrite NEG, Urine Bilirubin NEG, Urine Urobilinogen 0.2, Ur Leukocyte Esterase LARGE H, Ur Microscopic SEDIMENT EXAMINED, Urine RBC 15-25 H, Urine WBC > 75 H, Ur Epithelial Cells RARE, Urine Bacteria MANY H, Urine Hemoglobin LARGE H, Urine Glucose NEG 12/27/17 0010: Lactic Acid 2.3 H 12/26/172149: Anion Gap 5, Estimated GFR 27 L, BUN/Creatinine Ratio 10.0, Glucose 117 H, Lactic Acid 2.4 H, Calcium 9.0, Magnesium 1.8, Total Bilirubin 2.9 H, AST 60 H, ALT 36, Alkaline Phosphatase 188 H, Ammonia 103 H, Troponin I < 0.01, Total Protein 7.9, Albumin 2.4 L, Globulin 5.5 H, Albumin/Globulin Ratio 0.4 L, Salicylates < 1.0, Acetaminophen < 10.0 L, Serum Alcohol < 10.0 12/26/172100: PT 19.3 H, INR 1.76 H, APTT 30, CBC w Diff NO MAN DIFF REQ, RBC 3.32 L, MCV 109.1 H, MCH 37.1 H, MCHC 34.0, RDW 21.1 H, MPV 7.8, Gran % 68.0, Lymphocytes % 17.8 L, Monocytes % 13.8 H, Eosinophils % 0, Basophils % 0.4, Absolute Granulocytes 2.6, Absolute Lymphocytes 0.7 L, Absolute Monocytes 0.5, Absolute Eosinophils 0, Absolute Basophils 0 12/26/17 2001: Acetaminophen Cancelled Microbiology 12/28 107 URINE ROUT: Urine Culture - ORD 12/27 49 URINE ROUT: Urine Culture - RECD Initial ED EKG: normal axis, normal p-waves, normal QRS complex, no ST T wave changes Comments: HPI as above. Initial thought was DTs/withdrawal as we had little collateral on patient, known etoh abuse with recent cessation. Patient attempting to get out of bed and thus restraints had to be placed. Ativan given with mild effect. 2 more mg given short time later with same effect. Not tachy throughout, +HTN. Ammonia came back later markedly elevated which raised concern for HE. Lactulose ordered. Vit K for elevated INR. Bedside US withotu overt ascites. No fever. Will empirically give 1 g ceftriaxone. (Allyn PERSAUD,Josefa) Departure Departure Disposition: STILL A PATIENT Condition: Stable Clinical Impression Primary Impression: Hepatic encephalopathy Secondary Impressions: Elevated INR, Elevated LFTs, Thrombocytopenia Departure Forms: Customer Survey General Discharge Information Admission Note Spoke With: Dashawn Foster MD Documentation of Exam: Documentation of any treatments & extenuating circumstances including Concerns Regarding Discharge (functional status, medication knowledge or non-compliance, living conditions, etc.) that warrant an admission rather than observation: [ Patient with altered mental status due to hepatic encephalopathy which will require intensive lactulose therapy and close clinical observation of mental status. Also, concern for sepsis causing AMS which will require ABX. Has had falls with this issue as well, further indicating need to stay in hospital for care. ] (Josefa Gruber MD) Resident Co-Sign Statement Statement: ED Attending supervision documentation- I saw and evaluated the patient. I have also reviewed all the pertinent lab results and diagnostic results. I agree with the findings and the plan of care as documented in the Resident's documentation. x I have reviewed the ED Record and agree with the Resident's documentation. [] Additions or exceptions (if any) to the Resident's note and plan are summarized below: [] (Claudia PERSAUD,Anup) Critical Care Note Critical Care Note Critical Care Time: non-applicable (Josefa Gruber MD) ED Attending Observation Initial Observation Note: I have seen and personally examined HIRAL ANGUIANO on 12/27/17 at 0024. I agree with the current emergency department documentation. The disposition (admission or discharge) is uncertain at this time, she needs a period of observation for the following reason(s): The ED Nurse caring for this patient has been personally informed as to what the patient is being observed for. (Josefa Gruber MD)
--- NOTE | 2017-12-27 00:36 | History & Physical ---
See Addendum Isaiah Burgos 12/27/17 0035: General Information and HPI MD Statement: I have seen and personally examined HIRAL ANGUIANO and documented this H&P. The patient is a 57 year old F who presented with a patient stated chief complaint of [Altered mental status]. Source of Information: patient, family, old records Exam Limitations: unable to give history, not alert/orientated, clinical condition History of Present Illness: 57 year old female with history of hepatic encephalopathy, Hepatitis C, Cirrhosis, Alcohol abuse, GERD, El's esophagus brought in by EMS when her boyfirend reportedly found her confused and not making sense and called 911. The patient is a poor historian, as she is confused and unable to give the history during the interview. She is aware that she is in a hospital, but was incorrect about the exact hospital, and oriented only to herself. These basic questions alone required repeated prompting and redirecting, as the patient would also perseverate during questioning, when she responded at all. Allergies/Medications Allergies: Coded Allergies: acetaminophen (From TYLENOL) (LIVER DYSFUNCTION 12/12/17) Home Med list Albuterol Sulfate (Ventolin Hfa) 90 MCG HFA.AER.AD 2 PUF INH PRN RESPIRATORY (Reported) Cyclobenzaprine HCl 10 MG TABLET 1 TAB PO Q8P PAIN OR SPASM Duloxetine Hydrochloride (Cymbalta) 20 MG CAPSULE.DR 1 CAP PO BID DEPRESSION (Reported) Furosemide (Lasix) 20 MG TABLET 1 TAB PO DAILY DIURETIC (Reported) Gabapentin 300 MG CAPSULE 2 CAP PO Q8 NEUROPATHIC PAIN/ANXIETY Ibuprofen 600 MG TABLET 1 TAB PO TID PRN PAIN with food Ibuprofen 600 MG TABLET 1 TAB PO Q6P PRN pain with food Insulin Aspart (Novolog) 100 UNIT/ML VIAL 0 UNITS SC TIDAC/HS diabetes BEFORE MEALS Blood Insulin Sugar Units <80 0 81-150 6 151-200 8 201-250 9 251-300 10 301-350 11 351-400 13 >400 Call Doctor AT BEDTIME Blood Insulin Sugar Units <80 0 81-100 0 101-200 0 201-250 0 251-300 4 301-350 5 351-400 6 >400 Call Doctor Insulin Detemir (Levemir) 100 UNIT/ML VIAL 6 UNITS SC BID DM (Reported) Loperamide HCl (Imodium A-D) 2 MG TABLET 0 PO SEE ADMIN CRITERIA PRN diarrhea 1 tab after each loose stool up to 7 per day Lorazepam 0.5 MG TABLET 1 TAB PO BIDP PRN ANXIETY (Reported) Magnesium Oxide (Magnesium) 400 MG CAPSULE 1 CAP PO DAILY hypomagnesemia Metoprolol Succinate 25 MG TAB 1 TAB PO DAILY afib Olanzapine (Zyprexa) 5 MG TABLET 1 TAB PO QPM SLEEP (Reported) Omeprazole 20 MG CAPSULE.DR 1 CAP PO DAILY GI (Reported) Oxycodone HCl/Acetaminophen (Percocet 5-325 MG Tablet) 5 MG-325 MG TABLET 1 TAB PO 4XDP PRN PAIN four...[id number] Compliance With Home Meds: UNKNOWN Past History Travel History Traveled to [place] past 21 day No Medical History Neurological: delerium, severe bout of hepatic encephalopathy, 02/2012 EENT: NONE Cardiovascular: hypertension Respiratory: obstructive sleep apnea Gastrointestinal: colonoscopy in 12/22 one small TA and diverticulosis, EGD showed portal hypertensive gastropathy, but no varices diverticulosis coli colon TA 12/16/14: ? El's esophagus vs samplng error with indefinite dysplasia Hepatic: cirrhosis, hepatitis C, hepatic encephalopathy, EtOH abuse Renal: urinary incontinence, CKD Musculoskeletal: CHRONIC BACK PAIN BILATERAL LEG PAIN Psychiatric: alcohol dependence, anxiety, bipolar disease, chronic pain disorder , depression, insomnia, opioid dependence (prescribed by PCP) Endocrine: diabetes Blood Disorders: coagulopathy, pancytopenia Cancer(s): cervical cancer, uterine cancer HAND CROCHETER/Reproductive: NONE History of MRSA: No History of VRE: No History of CDIFF: No Isolation History: Contact Tetanus Vaccine: 11/01/17 Surgical History Surgical History: cholecystectomy, leep PROCEDURE Past Family/Social History Family History Relations & Conditions if any FATHER, , Age 57; Cause: ASHD (arteriosclerotic heart disease). MOTHER, , Age 58; Cause: Cerebral aneurysm. Relation not specified for: FH: hypertension Psychosocial History Who Do You Live With? self Services at Home: Nursing Primary Language: Frisian ETOH Use: alcoholic Illicit Drug Use: UTD Living Will? no Power of Plugger Man/HCP? no Functional Ability ADLs Independent: dressing, eating, toileting, bathing. Ambulation: independent IADLs Independent: shopping, housework, finances, food prep, telephone, transportation , medication admin. Review of Systems Review of Systems Constitutional: Reports: see HPI. Cardiovascular: Denies: see HPI. Respiratory: Denies: see HPI. GI: Denies: see HPI. Exam & Diagnostic Data Last 24 Hrs of Vital Signs/I&O Vital Signs Date Time Temp Pulse Resp B/P B/P Pulse O2 O2 Flow FiO2 Mean Ox Delivery Rate 12/26 2357 98.3 83 20 152/99 12/26 2358 98.3 83 20 152/99 95 Room Air 12/26 2307 98.0 86 22 164/70 95 Room Air 12/26 2221 97.5 84 18 158/76 96 12/26 2148 82 20 169/82 12/26 2106 94 Room Air 12/27 1999 97.4 84 18 185/84 12/26 1957 97.7 80 22 185/84 95 Room Air 12/26 1913 98.5 91 24 167/89 95 Room Air Physical Exam General Appearance No Acute Distress Skin petechia of the bilateral lower extremities HEENT Atraumatic, PERRLA Neck Supple Cardiovascular Regular Rate, Normal S1, Normal S2 Abdomen Normal Bowel Sounds, Soft Extremities No Clubbing, No Cyanosis Last 24 Hrs of Labs/Paresh: Laboratory Tests 12/27/17 0050: Methadone Screen Pending, Barbiturate Screen Pending, Ur Phencyclidine Scrn Pending, Amphetamines Screen Pending, U Benzodiazepines Scrn Pending, Urine Cocaine Screen Pending, Urine Cannabis Screen Pending, Urine Color Pending, Urine Clarity Pending, Urine pH Pending, Ur Specific [place] Pending, Urine Protein Pending, Urine Ketones Pending, Urine Nitrite Pending, Urine Bilirubin Pending, Urine Urobilinogen Pending, Ur Leukocyte Esterase Pending, Ur Microscopic SEDIMENT EXAMINED, Urine RBC Pending, Urine Hemoglobin Pending, Urine Glucose Pending 12/27/17 0010: Lactic Acid 2.3 H 12/26/17 2150: Anion Gap 5, Estimated GFR 27 L, BUN/Creatinine Ratio 10.0, Glucose 117 H, Lactic Acid 2.4 H, Calcium 9.0, Magnesium Pending, Total Bilirubin 2.9 H, AST 60 H, ALT 36, Alkaline Phosphatase 188 H, Ammonia 103 H, Troponin I < 0.01, Total Protein 7.9, Albumin 2.4 L, Globulin 5.5 H, Albumin/Globulin Ratio 0.4 L, Salicylates < 1.0, Acetaminophen < 10.0 L, Serum Alcohol < 10.0 12/26/172100: PT 19.3 H, INR 1.76 H, APTT 30, CBC w Diff NO MAN DIFF REQ, RBC 3.32 L, MCV 109.1 H, MCH 37.1 H, MCHC 34.0, RDW 21.1 H, MPV 7.8, Gran % 68.0, Lymphocytes % 17.8 L, Monocytes % 13.8 H, Eosinophils % 0, Basophils % 0.4, Absolute Granulocytes 2.6, Absolute Lymphocytes 0.7 L, Absolute Monocytes 0.5, Absolute Eosinophils 0, Absolute Basophils 0 12/26/172000: Acetaminophen Cancelled Microbiology 12/27 010 URINE ROUT: Urine Culture - ORD 12/27 49 URINE ROUT: Urine Culture - RECD Assessment/Plan Assessment: 57 year old female with history of hepatitis C cirrhosis, alcohol abuse and prior admissions for hepatic encephalopathy presenting with altered mental status, likely hepatic encephalopathy. Serum alcohol level was <10.0, Ammonia level was found to be 103 Problems: 1. Hepatic encephalopathy 2. History of hepatic cirrhosis Plan As Ranked By This Provider Problem List: 1. Hepatic encephalopathy 2. Hepatitis C 3. Cirrhosis 4. Alcohol abuse 5. GERD (gastroesophageal reflux disease) 6. El's esophagus 7. Portal hypertensive gastropathy 8. Diverticula, colon 9. History of adenomatous polyp of colon 10. Coagulopathy 11. Pancytopenia Core Measures/Misc (12/24) Acute Coronary Syndrome ACS Diagnosis: No Congestive Heart Failure Congestive Heart Failure Diagnosis No Cerebrovascular Accident CVA/TIA Diagnosis: No VTE (View Protocol) VTE Risk Factors Age>40 No Mechanical VTE Prophylaxis d/t N/A MechProphylax Ordered No VTE Pharm Prophylaxis d/t NA PharmProphylax ordered Sepsis (View protocol) Sepsis Present: No If YES complete Sepsis Event Note If YES complete Sepsis Event Note Karli Vega MD 12/27/17 0039: Core Measures/Misc (12/24) Sepsis (View protocol) If YES complete Sepsis Event Note If YES complete Sepsis Event Note Resident Review Statement Resident Statement: examined this patient, discussed with internet e commerce specialist, agreed with internet e commerce specialist, reviewed EMR data (avail), amended to note Other Findings: Patient is a 57-year-old female with past medical history significant for hepatic encephalopathy, cirrhosis secondary to alcohol abuse and hepatitis C, El's esophagus, GERD, diabetes brought in by ambulance after her boyfriend found her to be altered his morning. History was obtained from the ED with spoke to the patient's boyfriend and brother along with records from [place]. Admitting team unable to reach them and unable to obtain history from patient due to her altered state. Per ED patient prior to arriving was according to her boyfriend "shaking and staring into the air". Reports that patient also fell today however is unsure if she had any head trauma. Per family no recent complaints by patient of fever, chills, nausea/vomiting, abdominal pain. Boyfriend reported the patient had a few beers yesterday and drinks alcohol daily. Patient's blood sugar en route was 155. Patient ED was drowsy but arousable. During our interview/examination patient was arousable and was able to tell her name however did not answer any other questions. Exam limited due to patient's altered state. See above. Vitals: MAXIMUM TEMPERATURE 98.5, heart rate 80s to 90s, respiration rate 18-24, blood pressure 150/76 saturating between 94-96% on room air Labs significant for WBC of 3.8, H&H 12.3 and 36.2, MCV of 109.1, platelet count of 98, sodium 139, potassium 4.4, chloride 109, bicarbonate 24, BUN 19, creatinine 1.9 (up from 1.6 on December 12), ammonia level of 103, alkaline phosphatase 188, AST 60, ALT 36, T bili 2.9, albumin 2.4, serum alcohol level less than 10, U tox negative Head CT was negative for any acute intracranial pathology Chest x-ray showed low lung volumes with mild hypoventilatory changes Patient is a 57-year-old female with past medical history significant for hepatic encephalopathy, cirrhosis secondary to hepatitis C and alcohol abuse, diabetes presenting this admission with altered mental status likely secondary to hepatic encephalopathy with elevated ammonia level of 103 and altered state in setting of cirrhosis and alcohol abuse. Patient in the ED also received IV Ativan 4 mg due to concern of alcohol withdrawal. At the time of our evaluation patient did not appear to be going through withdrawal. Last drink per boyfriend was one day prior to admission. Patient alcohol level was less than 10. Problems: AMS secondary to hepatic encephalopathy Pancytopenia Coagulopathic secondary to cirrhosis Transaminitis secondary to cirrhosis and alcohol abuse Lactic acidosis History of diabetes, GERD Plan: Admit to telemetry Continuous telemetry monitoring EKG for baseline and to evaluate QTc CIWA protocol for possible alcohol withdrawal, no standing dose given due to altered mental state Neuro checks every 4 hours Lactulose enema every 6 hours Ceftriaxone 2gm IV x1 given for SBP prophylaxis. Confirmed with pharmacy prior to giving due to decreased renal clearance Monitor strict ins and outs Guaiac stools Gentle IV fluid hydration Trend lactic acid Continue to monitor electrolytes and replete as needed Continue to monitor LFTs Obtain further information in the morning from patient's family including patient's CODE STATUS Patient's medications need to be reconciled in the morning GI consult placed DVT prophylaxis: Alps only insetting of thrombus cytopenia Diet: Nothing by mouth with gentle IV fluid hydration Dashawn Foster 12/27/17 0105: Core Measures/Misc (12/24) Sepsis (View protocol) If YES complete Sepsis Event Note If YES complete Sepsis Event Note Attending MD Review Statement Attending Statement Attending MD Statement: examined this patient, discuss w/resident/PA/PRE K TEACHER, agreed w/resident/PA/PRE K TEACHER Attending Assessment/Plan: Addendum by . Patient was seen and examined at bedside today ( 12/26/18 ) at 11Pm. Reviewed the history physical done by the resident. Reviewed the past medical family, family, social history. ROS: 10 point system cannot be reviewed due to patient's mental status. Additional details: Patient is a 57 years old female with a known history of alcoholic liver cirrhosis, ongoing alcohol use, Hep C infection- not on medication, HTN, CKD stage 3B, anxiety, depression, and GERD, patient was also evaluated for liver transplantation in the past was brought in for altered sensorium. Patient is completely drowsy and not any patient to follow any commands, history is not obtainable. As per the ER physician patient had a lasting 2 days ago, patient was more confused and and she was not taking her medication for couple of days. In the ER she was agitated. She was kept on bilateral wrist restraints. She had a routine labs showing ammonia 103. INR was 1.7. Magnesium 1.3, lactate 2.3, acute on chronic renal failure with creatinine 1.9. And she is being admitted for hepatic encephalopathy. Examination is very limited due to her mental status. Pupils are dilated bilaterally but responds to light. Patient is not able to follow any commands. Moans to pain, withdraws as well. Cannot assess for any flapping tremors. Cardiac examination is regular heart sounds, no murmurs. Lungs limited examination but no wheezing. Abdomen is obese, could not assess if there is any ascites. Bowel sounds are present. Labs, prior records reviewed. Assessment and plan: #Hepatic encephalopathy, ammonia is 103, will give lactulose enemas every 6 hourly to maintain 2-3 soft bowel movements. Abdominal examination does not suggest huge ascites but due to her mental status examination is limited so will treat empirically with ceftriaxone for possible SBP. Can get ultrasound abdomen in the morning to assess any ascites. GI evaluation in a.m. #Alcohol abuse -ER told me that for brother patient had alcohol 2 days ago. Her serum alcohol level was negative in the ER. would avoid any lorazepam at this point given her mental status. The patient gets agitated give Haldol. Also check QTC on EKG. Continue with wrist restraints. #Hypomagnesemia-replace #Acute renal failure on CKD stage III-hold diuretics. Start gentle IV fluids given elevated lactate. #History of hepatitis C, liver cirrhosis-avoid any binge O's are narcotics at this point. Holding Lasix. #Diabetes-hold long-acting insulin. Can continue the sliding scale. Also keep n.p.o. for now. #Pancytopenia due to liver cirrhosis. Will watch her on telemetry given her altered sensorium. Currently respiratory status is stable, does not need any intubation. If condition deteriorates or breathing status gets worse we will consider respiratory support. Reviewed with the resident. Agree with the rest of the plan as per resident's note. Dr.Ravinder Ginger MD. Hospitalist. Pager: [phone], cell: [phone].
[2017-12-27 08:38] LABS: ABSOLUTE BASOPHIL COUNT 0 /CUMM (0.0-0.2); ABSOLUTE EOSINOPHIL COUNT 0 /CUMM (0.0-0.7); ABSOLUTE LYMPH COUNT 0.7 /CUMM (1.2-3.4); ABSOLUTE MONOCYTE COUNT 0.6 /CUMM (0.10-0.60); BASOPHIL % 0.5 % (0.0-2.0); EOSINOPHIL % 0 % (0-5); GRANULOCYTE % 60.7 % (42.2-75.2); HEMATOCRIT 32.3 % (37-47); MEAN CORPUSCULAR HGB 37.2 PG (27.0-31.0); MEAN CORPUSCULAR HGB CONC 33.8 G/DL (33.0-37.0); MEAN PLATELET VOLUME 7.2 FL (7.4-10.4); RBC DISTRIBUTION WIDTH 21.6 % (11.5-14.5); RED BLOOD CELL CT 2.94 /CUMM (4.20-5.40); WHITE BLOOD CELL COUNT 3.3 /CUMM (4.8-10.8)
[2017-12-27 10:27] LABS: PLATELET COUNT 77 /CUMM (130-400)
--- NOTE | 2017-12-27 12:01 | CT SCAN REPORT ---
EXAMINATION: CT CERVICAL SPINE WITHOUT CONTRAST CLINICAL INFORMATION: Altered mental status. Unable to clear C-spine. COMPARISON: None TECHNIQUE: CT of the cervical spine was performed without contrast. Multiplanar reformats were rendered and reviewed. Some photon starvation artifact is noted throughout the mid to lower cervical spine which degrades spatial resolution of the examination. DLP: 345 mGy-cm FINDINGS: The cervical vertebral bodies maintain normal height and alignment allowing for straightening of the normal cervical lordosis. The craniovertebral junction is intact. No fracture is seen. The facet joints are normally aligned. There is multilevel disc height loss and associated degenerative endplate changes from C3-C4 through C7-T1 which is most advanced at C5-C6 and C6-C7. Multilevel facet arthropathy and uncovertebral hypertrophy is also noted. There is no high-grade osseous encroachment on the spinal canal. There are varying degrees of neural foraminal stenosis without severe narrowing. The upper lungs are clear. The extraspinal soft tissues appear normal. IMPRESSION: No cervical spine fracture or traumatic malalignment. Multilevel degenerative spondylotic changes without high-grade spinal canal or neural foraminal stenosis.
--- NOTE | 2017-12-27 12:10 | CT SCAN REPORT ---
EXAMINATION: CT ABDOMEN AND PELVIS WITHOUT CONTRAST CLINICAL INFORMATION: Acute mental status changes. Hepatic encephalopathy. COMPARISON: CT scan of the abdomen and pelvis dated 03/15/2016, 03/28/2015, 03/04/2015. MRI scan of the abdomen dated 12/03/2014. TECHNIQUE: Multidetector volumetric imaging was performed from the superior aspect of the liver through the pubic symphysis. Sagittal and coronal reformatted images were obtained on the technologist workstation. DLP: 1619.67 mGy-cm. FINDINGS: LUNG BASES: Mild atelectatic changes as seen in the lung bases bilaterally. LIVER, GALLBLADDER, AND BILIARY TREE: Nodular cirrhotic liver with atrophy of the right lobe and hypertrophy of the lateral segment and caudate lobe seen. Evidence of portal venous hypertension noted with small volume ascites around the liver, trace ascites extending along both paracolic gutters into the pelvis, and recanalization of the umbilical vein seen with small varices in the anterior omentum and perisplenic region evaluation of liver is limited due to extensive beam hardening artifact through the abdomen related to the patient's arms. No definite liver mass seen on noncontrast study. The patient is status post cholecystectomy with several eliza seen in the gallbladder fossa. No focal fluid collection in the gallbladder fossa. Common bile duct mildly dilated, measuring up to 0.8 cm in diameter. No obstructing calcified stone seen. PANCREAS: Diffusely atrophic, but otherwise unremarkable. SPLEEN: Enlarged, measuring 13.8 cm in maximal AP diameter as compared to 12.9 cm (03/15/2016). ADRENAL GLANDS: Unremarkable. KIDNEYS AND URETERS: The kidneys are normal in size, shape, and attenuation. Punctate approximately 0.1 cm nonobstructing upper pole right renal calcification again seen, unchanged. No other renal or ureteral calculi seen. Ureters bilaterally decompressed and unremarkable. BLADDER: Bladder decompressed by a Dhillon catheter and therefore suboptimally assessed. Small amount of ascites seen along the bladder dome. No definite bladder calculi seen. PELVIC VISCERA: Unremarkable. GASTROINTESTINAL TRACT: There are scattered sigmoid colonic diverticula with no evidence of acute diverticulitis. The small and large bowel are decompressed. Cecum is mobile and is located in the right mid abdomen. The appendix is not discretely visualized. ABDOMINAL WALL: Small fat-containing umbilical hernia is seen, containing fat only. There is also a small supraumbilical midline ventral wall hernia , containing a small volume of ascites. LYMPH NODES, VASCULAR: Small subcentimeter sized retroperitoneal and periportal lymph nodes are seen without pathologic enlargement. Moderate atherosclerotic calcifications of the aortoiliac vessels noted. Upper abdominal varices are noted as described above. OSSEOUS STRUCTURES: Moderate degenerative disc disease is seen at the T11-12 level with vertebral endplate sclerosis and spurring, disc space narrowing and prominent focal superior endplate depression of the T12 vertebral body. Findings have progressed when compared to the prior study and may reflect progressive degenerative disc disease with herniation of the nucleus pulposus into these superior endplate of T12. Close clinical correlation is requested to assess for other etiologies, such as discitis. Mild vertebral spondylosis seen throughout the thoracolumbar spine. Mild facet arthropathy seen in the lower lumbar spine. IMPRESSION: 1. Nodular cirrhotic liver with portal venous hypertension as evidenced by small volume ascites, splenomegaly, and abdominal varices. 2. No definite hepatic mass appreciated on noncontrast study. 3. Status post cholecystectomy with resultant mild biliary dilatation. 4. Stable nonobstructing upper pole right renal 0.1 cm calcification. 5. Small fat-containing umbilical hernia and small supraumbilical midline ventral wall hernia, containing small volume ascites. 6. Progressive disc disease is seen at T11-12 when compared to 03/15/2016 and similar to the appearance on 06/18/2017. Findings are most likely related to progressive degenerative change. However, close clinical correlation is requested. If there is focal tenderness in this region, other etiologies, such as chronic discitis can be considered in the differential.
--- NOTE | 2017-12-27 15:04 | Event Note ---
Event Note Event Note: Pt came up from ED around 1140. Confused, 1:1 sitter in room. Pt awakens to verbal commands, eyes mildly reactive. Oriented to place, unsure of time of day or year. Unable to answer why she is in the hospital at this time. Patient unable to provide any meaningful history. Pupils sluggish to reactive, mildly jaundiced. Lungs rhoncherous at bases b/l; diminished at apices. Heart without murumurs. Abdomen obese, soft, petchial rash without spider angiomas or fluid wave, mild LUQ tenderness, no peritoneal signs or rebound noted. Negative suprapubic tenderness or CVA tenderness. Dhillon in place, no hematuria noted. Lower extremities nontender, no edema noted, good distal pulses. Imaging was reviewed. No acute findings noted on CT-Cspine/Head CT Liver nodular and cirrhotic with portal venous hypertension on abdominal CT. CXR negative. Pt is currently receiving lactulose enemas for hepatic encephalopathy; ammonia was elevated on admission in the setting of EtOH usage. UA showing +LE with many bacteria; she received Ceftriaxone 1g in ED last night. Given confusion and UA findings, will continue the Ceftriaxone 1g, tomorrow will be day 2 of IV abx. Pancytopenia likely given due to chronic EtOH usage, and will trend LFTs in the AM as well as CBC to monitor. She is a general medicine hold.
--- NOTE | 2017-12-27 17:27 | Cons- Gastroenterology ---
General Information and HPI Consulting Request Date of Consult: 12/27/17 Requested By: Dashawn Foster MD Reason for Consult: Altered mental status Cirrhosis Exam Limitations: unable to give history, clinical condition, confusion History of Present Illness: Apparently acute altered mental status in a patient with cirrhosis. Unable to give history. Allergies/Medications Allergies: Coded Allergies: acetaminophen (From TYLENOL) (LIVER DYSFUNCTION 12/12/17) Home Med List: Albuterol Sulfate (Ventolin Hfa) 90 MCG HFA.AER.AD 2 PUF INH PRN RESPIRATORY (Reported) Cyclobenzaprine HCl 10 MG TABLET 1 TAB PO Q8P PAIN OR SPASM Duloxetine Hydrochloride (Cymbalta) 20 MG CAPSULE. 1 CAP PO BID DEPRESSION (Reported) Furosemide (Lasix) 20 MG TABLET 1 TAB PO DAILY DIURETIC (Reported) Gabapentin 300 MG CAPSULE 2 CAP PO Q8 NEUROPATHIC PAIN/ANXIETY Ibuprofen 600 MG TABLET 1 TAB PO TID PRN PAIN with food Ibuprofen 600 MG TABLET 1 TAB PO Q6P PRN pain with food Insulin Aspart (Novolog) 100 UNIT/ML VIAL 0 UNITS SC TIDAC/HS diabetes BEFORE MEALS Blood Insulin Sugar Units <80 0 81-150 6 151-200 8 201-250 9 251-300 10 301-350 11 351-400 13 >400 Call Doctor AT BEDTIME Blood Insulin Sugar Units <80 0 81-100 0 101-200 0 201-250 0 251-300 4 301-350 5 351-400 6 >400 Call Doctor Insulin Detemir (Levemir) 100 UNIT/ML VIAL 6 UNITS SC BID DM (Reported) Loperamide HCl (Imodium A-D) 2 MG TABLET 0 PO SEE ADMIN CRITERIA PRN diarrhea 1 tab after each loose stool up to 7 per day Lorazepam 0.5 MG TABLET 1 TAB PO BIDP PRN ANXIETY (Reported) Magnesium Oxide (Magnesium) 400 MG CAPSULE 1 CAP PO DAILY hypomagnesemia Metoprolol Succinate 25 MG TAB 1 TAB PO DAILY afib Olanzapine (Zyprexa) 5 MG TABLET 1 TAB PO QPM SLEEP (Reported) Omeprazole 20 MG CAPSULE.DR 1 CAP PO DAILY GI (Reported) Oxycodone HCl/Acetaminophen (Percocet 5-325 MG Tablet) 5 MG-325 MG TABLET 1 TAB PO 4XDP PRN PAIN four...[id number] Current Medications: Current Medications Sig/Ofelia Start time Last Medication Dose Route Stop Time Status Admin Ceftriaxone Sodium 1,000 MG DAILY 12/28 0900 AC IV Ceftriaxone Sodium 1,000 MG ONCE ONE 12/27 0145 DC IV 12/27 0146 Ceftriaxone Sodium 0 .STK-MED ONE 12/27 0055 DC .ROUTE Ceftriaxone Sodium 1,000 MG ONCE ONE 12/26 2330 DC 12/27 IV 12/26 2331 0055 Dextrose/Sodium 1,000 ML .[id number] 12/27 0100 AC 12/27 Chloride IV 0124 Insulin Human Regular 0 Q6 12/27 0600 AC 12/27 SC 1247 Lactulose 1 BOT 1600,2200,0400,1000 12/27 1600 AC [place] Lactulose 1 BOT Q6 12/27 0600 DC 12/27 [place] 0851 Lactulose 1 BOT ONCE ONE 12/26 2315 DC 12/27 [place] 12/26 231 0045 Lorazepam 0 .STK-MED ONE 12/26 2138 DC .ROUTE Lorazepam 2 MG ONE ONE 12/26 2114 DC 12/26 IV 12/26 Lorazepam 2 MG ONCE ONE 12/26 2014 CAN IM 12/27 2015 Lorazepam 2 MG ONCE ONE 12/26 194 DC 12/26 IM 12/26 1945 194 Lorazepam 0 .STK-MED ONE 12/26 194 DC .ROUTE Metoprolol Tartrate 0 .STK-MED ONE 12/27 0923 DC IV Metoprolol Tartrate 2.5 MG ONCE ONE 12/27 0845 DC 12/27 IV 12/27 0846 0948 Phytonadione 0 .STK-MED ONE 12/26 2317 DC .ROUTE Phytonadione 5 MG ONCE ONE 12/26 2300 DC 12/26 SC 12/26 2301 2321 Past History Travel History Traveled to [place] past 21 day No Medical History Blood Transfusion Hx: No Neurological: delerium, severe bout of hepatic encephalopathy, 02/2012 EENT: NONE Cardiovascular: hypertension Respiratory: obstructive sleep apnea Gastrointestinal: colonoscopy in 12/22 one small TA and diverticulosis, EGD showed portal hypertensive gastropathy, but no varices diverticulosis coli colon TA 12/16/14: ? 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 MOTHER, , Age 58; Cause: Cerebral aneurysm. Relation not specified for: FH: hypertension Psychosocial History Where Do You Live? Home Who Do You Live With? self Services at Home: Nursing Primary Language: French Smoking Status: Current Everyday Smoker ETOH Use: alcoholic Illicit Drug Use: UTD Living Will? no Power of Ict Quality Assurance Engineer/HCP? no Functional Ability ADLs Independent: dressing, eating, toileting, bathing. Ambulation: independent IADLs Independent: shopping, housework, finances, food prep, telephone, transportation , medication admin. Review of Systems Review of Systems: Unobtainable Exam & Diagnostic Data Vital Signs and I&O Vital Signs Date Time Temp Pulse Resp B/P B/P Pulse O2 O2 Flow FiO2 Mean Ox Delivery Rate 12/27 1400 97.6 82 22 128/68 12/27 1257 93 Room Air Room Air 12/27 1200 97.5 78 22 156/78 12/27 1130 97.5 85 22 156/78 93 Room Air Room Air 12/27 0940 98.3 83 18 163/92 95 Room Air 12/27 0555 97.7 83 20 181/78 12/27 0552 97.7 84 20 181/78 94 Room Air 12/27 0312 87 158/92 12/27 0312 98.4 87 20 158/92 97 Room Air 12/27 0213 Room Air 12/26 2358 98.3 83 20 152/99 12/26 2358 98.3 83 20 152/99 95 Room Air 12/26 2307 98.0 86 22 164/70 95 Room Air 12/26 2221 97.5 84 18 158/76 96 12/26 2148 82 20 169/82 12/26 2106 94 Room Air 12/26 2000 97.4 84 18 185/84 12/26 1957 97.7 80 22 185/84 95 Room Air 12/26 1913 98.5 91 24 167/89 95 Room Air Intake & Output 12/27 0400 12/26 0400 12/25 0400 Intake Total 400 Output Total 650 Balance -250 Intake, IV 400 Intake, Oral 0 Output, Urine 650 Patient 270 lb Weight Weight Bed scale Measurement Method Physical Exam: Obtunded, with brief periods of responsiveness and answering simple questions. Anicteric. Pupils equal, normal. No oropharyngeal lesion. Abdomen obese, soft , nondistended without overt ascites; no tenderness appreciated. Extremities without edema. Cannot evaluate for asterixis. Results Pertinent Lab Results: Laboratory Tests 12/27 12/27 12/27 12/27 1029 1029 0626 0327 Chemistry Sodium (137 - 145 mmol/L) 141 Potassium (3.5 - 5.1 mmol/L) 3.8 Chloride (98 - 107 mmol/L) 109 H Carbon Dioxide (22 - 30 mmol/L) 26 Anion Gap (5 - 16) 6 BUN (7 - 17 mg/dL) 21 H Creatinine (0.5 - 1.0 mg/dL) 1.8 H Estimated GFR (>60 ml/min) 29 L BUN/Creatinine Ratio (7 - 25 %) 11.7 Lactic Acid (0.7 - 2.1 mmol/L) 2.1 2.8 H Total Bilirubin (0.2 - 1.3 mg/dL) 2.8 H Direct Bilirubin (< 0.4 mg/dL) 1.4 H AST (14 - 36 U/L) 59 H ALT (9 - 52 U/L) 35 Alkaline Phosphatase (<127 U/L) 159 H Ammonia (9 - 30 umol/L) 89 H 82 H Total Protein (6.3 - 8.2 g/dL) 7.0 Albumin (3.5 - 5.0 g/dL) 2.2 L Hematology CBC w Diff NO MAN DIFF REQ WBC (4.8 - 10.8 /CUMM) 3.3 L RBC (4.20 - 5.40 /CUMM) 2.94 L Hgb (12.0 - 16.0 G/DL) 10.9 L Hct (37 - 47 %) 32.3 L MCV (81.0 - 99.0 FL) 110.0 H MCH (27.0 - 31.0 PG) 37.2 H MCHC (33.0 - 37.0 G/DL) 33.8 RDW (11.5 - 14.5 %) 21.6 H Plt Count (130 - 400 /CUMM) 77 L MPV (7.4 - 10.4 FL) 7.2 L Gran % (42.2 - 75.2 %) 60.7 Lymphocytes % (20.5 - 51.1 %) 22.0 Monocytes % (1.7 - 9.3 %) 16.8 H Eosinophils % (0 - 5 %) 0 Basophils % (0.0 - 2.0 %) 0.5 Absolute Granulocytes (1.4 - 6.5 /CUMM) 2.0 Absolute Lymphocytes (1.2 - 3.4 /CUMM) 0.7 L Absolute Monocytes (0.10 - 0.60 /CUMM) 0.6 Absolute Eosinophils (0.0 - 0.7 /CUMM) 0 Absolute Basophils (0.0 - 0.2 /CUMM) 0 12/27 12/27 12/26 0050 0010 2150 Chemistry Sodium (137 - 145 mmol/L) 139 Potassium (3.5 - 5.1 mmol/L) 4.4 Chloride (98 - 107 mmol/L) 109 H Carbon Dioxide (22 - 30 mmol/L) 24 Anion Gap (5 - 16) 5 BUN (7 - 17 mg/dL) 19 H Creatinine (0.5 - 1.0 mg/dL) 1.9 H Estimated GFR (>60 ml/min) 27 L BUN/Creatinine Ratio (7 - 25 %) 10.0 Glucose (65 - 99 mg/dL) 117 H Lactic Acid (0.7 - 2.1 mmol/L) 2.3 H 2.4 H Calcium (8.4 - 10.2 mg/dL) 9.0 Magnesium (1.6 - 2.3 mg/dL) 1.8 Total Bilirubin (0.2 - 1.3 mg/dL) 2.9 H AST (14 - 36 U/L) 60 H ALT (9 - 52 U/L) 36 Alkaline Phosphatase (<127 U/L) 188 H Ammonia (9 - 30 umol/L) 103 H Troponin I (< 0.11 ng/ml) < 0.01 Total Protein (6.3 - 8.2 g/dL) 7.9 Albumin (3.5 - 5.0 g/dL) 2.4 L Globulin (1.9 - 4.2 gm/dL) 5.5 H Albumin/Globulin Ratio (1.1 - 2.2 %) 0.4 L Toxicology Salicylates (0 - 20.0 mg/dL) < 1.0 Urine Opiates Screen (>2000 NG/ML) < 100 Methadone Screen (>300 NG/ML) 48 Acetaminophen (10.0 - 30.0 ug/mL) < 10.0 L Barbiturate Screen (>200 NG/ML) < 60 Ur Phencyclidine Scrn (>25 NG/ML) < 6.00 Amphetamines Screen (>1000 NG/ML) < 100 U Benzodiazepines Scrn (>200 NG/ML) < 85 Urine Cocaine Screen (>300 NG/ML) < 50 Urine Cannabis Screen (>50 NG/ML) 8.90 Serum Alcohol (<10 MG/DL) < 10.0 Urines Urine Color (YEL,AMB,STR) YEL Urine Clarity (CLEAR) CLDY H Urine pH (5.0 - 8.0) 6.0 Ur Specific [place] (1.001 - 1.035) 1.020 Urine Protein (NEG,<30 MG/DL) NEG Urine Ketones (NEG) NEG Urine Nitrite (NEG) NEG Urine Bilirubin (NEG) NEG Urine Urobilinogen (0.1 - 1.0 EU/dl) 0.2 Ur Leukocyte Esterase (NEG) LARGE H Ur Microscopic SEDIMENT EXAMINED Urine RBC (0 - 5 /HPF) 15-25 H Urine WBC (0 - 2 /HPF) > 75 H Ur Epithelial Cells (NONE,FEW) RARE Urine Bacteria (NEG/NONE) MANY H Urine Hemoglobin (NEG) LARGE H Urine Glucose (N MG/DL) NEG 12/26 Coagulation PT (9.4 - 12.5 SEC) 19.3 H INR (0.90 - 1.19) 1.76 H APTT (25 - 37 SEC) 30 Hematology CBC w Diff NO MAN DIFF REQ WBC (4.8 - 10.8 /CUMM) 3.8 L RBC (4.20 - 5.40 /CUMM) 3.32 L Hgb (12.0 - 16.0 G/DL) 12.3 Hct (37 - 47 %) 36.2 L MCV (81.0 - 99.0 FL) 109.1 H MCH (27.0 - 31.0 PG) 37.1 H MCHC (33.0 - 37.0 G/DL) 34.0 RDW (11.5 - 14.5 %) 21.1 H Plt Count (130 - 400 /CUMM) 98 L MPV (7.4 - 10.4 FL) 7.8 Gran % (42.2 - 75.2 %) 68.0 Lymphocytes % (20.5 - 51.1 %) 17.8 L Monocytes % (1.7 - 9.3 %) 13.8 H Eosinophils % (0 - 5 %) 0 Basophils % (0.0 - 2.0 %) 0.4 Absolute Granulocytes (1.4 - 6.5 /CUMM) 2.6 Absolute Lymphocytes (1.2 - 3.4 /CUMM) 0.7 L Absolute Monocytes (0.10 - 0.60 /CUMM) 0.5 Absolute Eosinophils (0.0 - 0.7 /CUMM) 0 Absolute Basophils (0.0 - 0.2 /CUMM) 0 Toxicology Acetaminophen Cancelled Imaging/Other Studies: CT scan without contrast: IMPRESSION: 1. Nodular cirrhotic liver with portal venous hypertension as evidenced by small volume ascites, splenomegaly, and abdominal varices. 2. No definite hepatic mass appreciated on noncontrast study. 3. Status post cholecystectomy with resultant mild biliary dilatation. 4. Stable nonobstructing upper pole right renal 0.1 cm calcification. 5. Small fat-containing umbilical hernia and small supraumbilical midline ventral wall hernia, containing small volume ascites. Assessment/Plan Assessment/Recommendations: Cirrhosis secondary to alcohol (still continuing to imbibe) and hepatitis C ( genotype 1A, untreated). History of brief episodes of encephalopathy, now apparently recurrent, without clear-cut etiology. GFR is decreased from usual, and this may represent dehydration. There is no overt bleeding, and stool was guaiac negative in the emergency room. There is no evident infection. There is minimal ascites and as such it may be difficult to ascertain the presence of SBP. It is not clear whether there have been new medication prescriptions, including psychotropic. Please note that one cannot use an ammonia level to diagnosis hepatic encephalopathy, but it is reasonable to assume that this is the case at present. Recommendations * Continue lactulose enemas * Increase IV fluids given decreased GFR; follow BMP carefully * Discuss feasibility of diagnostic paracentesis with IR, after reviewing CT scan * Consider neurology evaluation if remains obtunded tomorrow * Will eventually EGD to (1) assess for development of varices, and (2) follow- up El's esophagus, indefinite for dysplasia in 2015. * No nasogastric tube for the present time Consult Acknowledgment - Thank you for your consult request.
[2017-12-28] VITALS: BP 150/100
[2017-12-28 04:00] VITALS: BP 140/70
[2017-12-28 05:04] LABS: ABSOLUTE BASOPHIL COUNT 0 /CUMM (0.0-0.2); ABSOLUTE EOSINOPHIL COUNT 0 /CUMM (0.0-0.7); ABSOLUTE GRANULOCYTE CT 1.6 /CUMM (1.4-6.5); ABSOLUTE LYMPH COUNT 0.8 /CUMM (1.2-3.4); ABSOLUTE MONOCYTE COUNT 0.6 /CUMM (0.10-0.60); BASOPHIL % 0.2 % (0.0-2.0); EOSINOPHIL % 0.1 % (0-5); GRANULOCYTE % 54.7 % (42.2-75.2); HEMATOCRIT 29.3 % (37-47); MEAN CORPUSCULAR HGB 37.5 PG (27.0-31.0); MEAN CORPUSCULAR HGB CONC 33.9 G/DL (33.0-37.0); MEAN CORPUSCULAR VOLUME 110.6 FL (81.0-99.0); MEAN PLATELET VOLUME 6.7 FL (7.4-10.4); PLATELET COUNT 77 /CUMM (130-400); RBC DISTRIBUTION WIDTH 21.3 % (11.5-14.5); RED BLOOD CELL CT 2.65 /CUMM (4.20-5.40)
[2017-12-28 06:00] VITALS: BP 148/70
--- NOTE | 2017-12-28 07:34 | PN- Housestaff ---
Barry Sweet 12/28/17 0734: Subjective Follow-up For: Hepatic Encephalopathy Elevated ammonia Subjective: Patient was confused overnight. Upon examination today, patient was alert and oriented 3, looks significantly better than yesterday. Was more engaged in conversation, continually asked if she could eat today. States that she does not remember anything since a week or 2 ago, does not room her last drink. Is unsure why she still in the hospital or why she is here for that matter. However, she does state that she is less confused than yesterday. Denies any complaints other than hunger. Review of Systems Constitutional: Reports: see HPI. Objective Last 24 Hrs of Vital Signs/I&O Vital Signs Date Time Temp Pulse Resp B/P B/P Pulse O2 O2 Flow FiO2 Mean Ox Delivery Rate 12/28 0800 98.6 74 20 110/70 12/28 0800 98.6 74 20 100/70 95 Room Air 12/28 0600 80 20 148/70 12/28 0400 80 20 140/70 12/28 0200 84 22 12/28 0000 98.4 82 24 150/100 12/28 0000 100 Room Air 12/28 0000 98.4 82 24 150/100 100 Room Air 12/27 2000 98.1 78 20 122/74 12/27 1600 98.8 92 18 120/62 12/27 1600 98.8 92 18 120/62 97 Nasal 2.0L Cannula 12/27 1400 97.6 82 22 128/68 Intake & Output 12/28 1600 12/28 0800 12/28 0000 Intake Total 800 860 Output Total 400 1700 Balance 400 -840 Intake, IV 800 800 Intake, Oral 60 Output, Stool 1100 Output, Urine 400 600 Patient 270 lb 372 lb Weight Weight Bed scale Measurement Method Physical Exam General Appearance: Alert, Oriented X3, Cooperative, No Acute Distress Skin: petechial rash noted to abdomen Skin Temp/Moisture Exam: Warm/Dry Sepsis Skin Exam (color): Normal for Ethnicity HEENT: Atraumatic Cardiovascular: Regular Rate, Normal S1, Normal S2 Lungs: wheeze rll, rul Abdomen: Soft, No Tenderness Neurological: Strength at 5/5 X4 Ext, Normal Tone, Sensation Intact, Cranial Nerves 3-12 NL, no asterixis noted Extremities: No Edema Vascular: Normal Pulses Current Medications: Current Medications Sig/Ofelia Start time Last Medication Dose Route Stop Time Status Admin Ceftriaxone Sodium 1,000 MG DAILY 12/28 0900 AC 12/28 IV 0944 Dextrose/Sodium 1,000 ML .Q10H 12/27 0100 AC 12/28 Chloride IV 0944 Insulin Aspart 0 TIDAC 12/28 1700 AC SC Insulin Human Regular 0 Q6 12/27 0600 DC 12/28 SC 1250 Lactulose 20 GM TID 12/28 1400 AC PO Lactulose 1 BOT 1600,2200,0400,1000 12/27 1600 DC 12/28 [place] 0400 Lactulose 1 BOT Q6 12/27 0600 DC 12/27 [place] 0851 Melatonin 5 MG ONCE ONE 12/27 2245 DC 12/27 PO 12/27 224 2243 Melatonin 0 .STK-MED ONE 12/27 2245 DC PO Nystatin 1 ANDRADE BID PRN 12/28 1215 AC TOP Last 24 Hrs of Lab/Paresh Results Last 24 Hrs of Labs/Mics: Laboratory Tests 12/28/17 0430: Ammonia 68 H 12/28/17 0430: Anion Gap 5, Estimated GFR 31 L, Glucose 121 H, Calcium 8.1 L, Phosphorus 2.7 , Magnesium 1.6, Total Bilirubin 2.5 H, AST 57 H, ALT 33, Albumin 1.9 L, CBC w Diff NO MAN DIFF REQ, RBC 2.65 L, MCV 110.6 H, MCH 37.5 H, MCHC 33.9, RDW 21.3 H, MPV 6.7 L, Gran % 54.7, Lymphocytes % 26.0, Monocytes % 19.0 H, Eosinophils % 0.1, Basophils % 0.2, Absolute Granulocytes 1.6, Absolute Lymphocytes 0.8 L, Absolute Monocytes 0.6, Absolute Eosinophils 0, Absolute Basophils 0 12/27/17 1854: PT Cancelled, INR Cancelled Microbiology 12/28 1133 BODY FLUID: Body Fluid Culture - ORD 12/28 1133 BODY FLUID: Gram Stain - ORD Assessment/Plan Assessment: Neha Candelario is a 57F with a PMH of liver cirrhosis secondary to alcohol abuse and hepatitis C (never treated), hypertension, stage III CKD, anxiety/ depression/bipolar disorder with history of suicide attempt, DM, presents with episodes of altered mental status, agitation, in restraints in the ED s/p ativan administration, with elevated ammonia and no ct findings of significant acute process with a UA showing leuk esterase and many bacteria with urine culture growing gram negative rods Problem List: #Altered Mental status likely Hepatic Encephalopathy 2/2 alcohol use/cirrhosis #Complicated UTI w/o risk factors for MDR organism #Pancytopenia #Diabetes #Cirrhosis #Alcohol Abuse #Tinea #Hepatic Encephalopathy -On Lactulose enemas, switched to oral today after patient passed swallow eval -Appreciate GI input -Not enough fluid for diagnostic tap -Mental status improving -Passed swallow eval -Potential scope per GI will f/u whether inpatient or outpatient -Will f/u ammonia tomorrow #Complicated UTI -On Ceftriaxone, 1g, day 2 -Urine culture growing >100,000 gram negative rods without ID or sensitivity yet -Will taper antibiotic course accordingly -Monitor for fevers #Pancytopenia -Trend CBCs, monitor for fevers -Likely 2/2 alcohol usage -Will calculate ANC tomorrow #Diabetes -On ISS, accuchecks #Cirrhosis/EtOH abuse -On CIWA, will monitor for withdrawals #Tinea -Nystatin powder PRN DVT PPx - ALPS only, thrombocytopenic IV access Regular Diet Dispo - patient can be GEN MED Problem List: 1. Cirrhosis 2. Alcohol abuse 3. Hepatitis C Pain Ratin Pain Location: nA Pain Goal: Pain 4 or less Pain Plan: pathway; less than 2g tylenol cumulatively per day Tomorrow's Labs & Rationales: BEP,ammonia Christel Le MD 12/28/17 1211: Attending MD Review Statement Attending Statement Attending MD Statement: examined this patient, discuss w/resident/PA/LEAD PASTOR, agreed w/resident/PA/LEAD PASTOR, reviewed EMR data (avail) Attending Assessment/Plan: 57F PMH alcoholic cirrhosis, alcohol use disorder, untreated HCV, HTN, CKD stage 3B, depression, and GERD admitted initially somnolent with altered mental status in the setting of hepatic encephalopathy. Patient was initially treated with Lactulose enemas with improvement in mental status. Today patient is awake and alert. She has no complaints. Vitals are stable. Ammonia was elevated on admission. Cultures negative. CT shows minimal ascites. 1. Hepatic encephalopathy 2. Alcoholic cirrhosis with ascites Plan - Continue on general medicine - Continue Lactulose - Monitor renal function - Follow GI recommendations - Continue home medications - Avoid hepatotoxic agents - DVT PPx
[2017-12-28 08:00] VITALS: BP 100/70; BP 110/70
--- NOTE | 2017-12-28 15:09 | PN- Gastroenterology ---
Assessment/Plan GI Assessment/Recommendations: Assessment: Ms. Candelario is a 57 year old female with etoh/hcv cirrhosis who was admitted with alterered mental status which is likely secondary to hepatic encephalopathy exacerbated by a UTI and possible active etoh use as well. Her mental status has markedly improved with lactulose and treatment of her UTI with antibiotics. She does have some renal insufficiency, but this is essentially stable from when it was last checked a few months ago as is her MELD score at 21 (not that she is a transplant candidate anyway with recent etoh use). IR has been contacted and they didn't feel that there was enough fluid to tap so as she is improved would not pursue that further at this time. Recommendations: 1. Continue treatment of UTI as per primary care team. 2. Follow up urine cultures 3. Continue PO lactulose titrating it to 2-3 some BMs a day and hold for diarrhea 4. Low sodium diet 5. Consideration may be given for a social service consult 6. Would monitor for signs of etoh and treat with benzos as needed 7. Would address treatment of hep C as an outpatient (she notes that she has harvoni at home which I prescribed a few months ago, but has yet to start it) 8. Repeat EGD to reassess for varices and possible barretts esophagus as an outpatient. Will sign off at this time and aske that GI be recontacted for any new GI or liver issues that may arise while she is admitted, otherwise she can follow up with me on discharge for further treatment of her cirrhosis and hep c. Problem List: 1. Hepatic encephalopathy 2. Cirrhosis 3. Hepatitis C 4. Thrombocytopenia Subjective Subjective: pt more alert today; no complaints. Objective Vital Signs and I&Os Vital Signs Date Time Temp Pulse Resp B/P B/P Pulse O2 O2 Flow FiO2 Mean Ox Delivery Rate 12/28 0800 98.6 74 20 110/70 12/28 0800 98.6 74 20 100/70 95 Room Air 12/28 0600 80 20 148/70 12/28 0400 80 20 140/70 12/28 0200 84 22 12/28 0000 98.4 82 24 150/100 12/28 0000 100 Room Air 12/28 0000 98.4 82 24 150/100 100 Room Air 12/27 2000 98.1 78 20 122/74 12/27 1600 98.8 92 18 120/62 12/27 1600 98.8 92 18 120/62 97 Nasal 2.0L Cannula Intake & Output 12/28 1600 12/28 0400 12/27 1600 12/27 0400 12/26 1600 12/26 0400 Intake Total 800 860 400 Output Total 400 1700 650 Balance 400 -840 -250 Intake, IV 800 800 400 Intake, Oral 60 0 Output, Stool 1100 Output, Urine 400 600 650 Patient 270 lb 270 lb Weight Weight Bed scale Bed scale Measurement Method Physical Exam General Appearance: well developed/nourished, no apparent distress, obese Head: atraumatic, normal appearance Ears, Nose, Throat: normal pharynx, normal ENT inspection Neck: normal inspection, supple, full range of motion Respiratory: normal breath sounds, chest non-tender, no respiratory distress Cardiovascular: regular rate/rhythm Abdomen: normal bowel sounds, soft, non-tender, no organomegaly Back: normal inspection Extremities: no edema Neurologic/Psychiatric: no motor/sensory deficits, awake, alert Current Medications: Current Medications Sig/Ofelia Start time Last Medication Dose Route Stop Time Status Admin Ceftriaxone Sodium 1,000 MG DAILY 12/28 0900 AC 12/28 IV 0944 Dextrose/Sodium 1,000 ML .Q10H 12/27 0100 AC 12/28 Chloride IV 0944 Insulin Aspart 0 TIDAC 12/28 1700 AC SC Insulin Human Regular 0 Q6 12/27 0600 DC 12/28 SC 1250 Lactulose 20 GM TID 12/28 1400 AC PO Lactulose 1 BOT 1600,2200,0400,1000 12/27 1600 DC 12/28 [place] 0400 Lactulose 1 BOT Q6 12/27 0600 DC 12/27 [place] 0851 Melatonin 5 MG ONCE ONE 12/27 2245 DC 12/27 PO 12/27 224 2243 Melatonin 0 .STK-MED ONE 12/27 2245 DC PO Metoprolol Succinate 25 MG DAILY 12/28 1423 AC PO Nystatin 1 ANDRADE BID PRN 12/28 1215 AC TOP Results Pertinent Lab Results: Laboratory Tests 12/28 12/28 12/27 0430 0430 1854 Chemistry Sodium (137 - 145 mmol/L) 140 Potassium (3.5 - 5.1 mmol/L) 3.7 Chloride (98 - 107 mmol/L) 110 H Carbon Dioxide (22 - 30 mmol/L) 25 Anion Gap (5 - 16) 5 BUN (7 - 17 mg/dL) 17 Creatinine (0.5 - 1.0 mg/dL) 1.7 H Estimated GFR (>60 ml/min) 31 L Glucose (65 - 99 mg/dL) 121 H Calcium (8.4 - 10.2 mg/dL) 8.1 L Phosphorus (2.5 - 4.5 mg/dL) 2.7 Magnesium (1.6 - 2.3 mg/dL) 1.6 Total Bilirubin (0.2 - 1.3 mg/dL) 2.5 H AST (14 - 36 U/L) 57 H ALT (9 - 52 U/L) 33 Ammonia (9 - 30 umol/L) 68 H Albumin (3.5 - 5.0 g/dL) 1.9 L Coagulation PT Cancelled INR Cancelled Hematology CBC w Diff NO MAN DIFF REQ WBC (4.8 - 10.8 /CUMM) 3.0 L RBC (4.20 - 5.40 /CUMM) 2.65 L Hgb (12.0 - 16.0 G/DL) 9.9 L Hct (37 - 47 %) 29.3 L MCV (81.0 - 99.0 FL) 110.6 H MCH (27.0 - 31.0 PG) 37.5 H MCHC (33.0 - 37.0 G/DL) 33.9 RDW (11.5 - 14.5 %) 21.3 H Plt Count (130 - 400 /CUMM) 77 L MPV (7.4 - 10.4 FL) 6.7 L Gran % (42.2 - 75.2 %) 54.7 Lymphocytes % (20.5 - 51.1 %) 26.0 Monocytes % (1.7 - 9.3 %) 19.0 H Eosinophils % (0 - 5 %) 0.1 Basophils % (0.0 - 2.0 %) 0.2 Absolute Granulocytes (1.4 - 6.5 /CUMM) 1.6 Absolute Lymphocytes (1.2 - 3.4 /CUMM) 0.8 L Absolute Monocytes (0.10 - 0.60 /CUMM) 0.6 Absolute Eosinophils (0.0 - 0.7 /CUMM) 0 Absolute Basophils (0.0 - 0.2 /CUMM) 0 12/27 12/27 12/27 12/27 1029 1029 5603 9228 Chemistry Sodium (137 - 145 mmol/L) 141 Potassium (3.5 - 5.1 mmol/L) 3.8 Chloride (98 - 107 mmol/L) 109 H Carbon Dioxide (22 - 30 mmol/L) 26 Anion Gap (5 - 16) 6 BUN (7 - 17 mg/dL) 21 H Creatinine (0.5 - 1.0 mg/dL) 1.8 H Estimated GFR (>60 ml/min) 29 L BUN/Creatinine Ratio (7 - 25 %) 11.7 Lactic Acid (0.7 - 2.1 mmol/L) 2.1 2.8 H Total Bilirubin (0.2 - 1.3 mg/dL) 2.8 H Direct Bilirubin (< 0.4 mg/dL) 1.4 H AST (14 - 36 U/L) 59 H ALT (9 - 52 U/L) 35 Alkaline Phosphatase (<127 U/L) 159 H Ammonia (9 - 30 umol/L) 89 H 82 H Total Protein (6.3 - 8.2 g/dL) 7.0 Albumin (3.5 - 5.0 g/dL) 2.2 L Hematology CBC w Diff NO MAN DIFF REQ WBC (4.8 - 10.8 /CUMM) 3.3 L RBC (4.20 - 5.40 /CUMM) 2.94 L Hgb (12.0 - 16.0 G/DL) 10.9 L Hct (37 - 47 %) 32.3 L MCV (81.0 - 99.0 FL) 110.0 H MCH (27.0 - 31.0 PG) 37.2 H MCHC (33.0 - 37.0 G/DL) 33.8 RDW (11.5 - 14.5 %) 21.6 H Plt Count (130 - 400 /CUMM) 77 L MPV (7.4 - 10.4 FL) 7.2 L Gran % (42.2 - 75.2 %) 60.7 Lymphocytes % (20.5 - 51.1 %) 22.0 Monocytes % (1.7 - 9.3 %) 16.8 H Eosinophils % (0 - 5 %) 0 Basophils % (0.0 - 2.0 %) 0.5 Absolute Granulocytes (1.4 - 6.5 /CUMM) 2.0 Absolute Lymphocytes (1.2 - 3.4 /CUMM) 0.7 L Absolute Monocytes (0.10 - 0.60 /CUMM) 0.6 Absolute Eosinophils (0.0 - 0.7 /CUMM) 0 Absolute Basophils (0.0 - 0.2 /CUMM) 0 12/27 12/27 12/26 0050 0010 2150 Chemistry Sodium (137 - 145 mmol/L) 139 Potassium (3.5 - 5.1 mmol/L) 4.4 Chloride (98 - 107 mmol/L) 109 H Carbon Dioxide (22 - 30 mmol/L) 24 Anion Gap (5 - 16) 5 BUN (7 - 17 mg/dL) 19 H Creatinine (0.5 - 1.0 mg/dL) 1.9 H Estimated GFR (>60 ml/min) 27 L BUN/Creatinine Ratio (7 - 25 %) 10.0 Glucose (65 - 99 mg/dL) 117 H Lactic Acid (0.7 - 2.1 mmol/L) 2.3 H 2.4 H Calcium (8.4 - 10.2 mg/dL) 9.0 Magnesium (1.6 - 2.3 mg/dL) 1.8 Total Bilirubin (0.2 - 1.3 mg/dL) 2.9 H AST (14 - 36 U/L) 60 H ALT (9 - 52 U/L) 36 Alkaline Phosphatase (<127 U/L) 188 H Ammonia (9 - 30 umol/L) 103 H Troponin I (< 0.11 ng/ml) < 0.01 Total Protein (6.3 - 8.2 g/dL) 7.9 Albumin (3.5 - 5.0 g/dL) 2.4 L Globulin (1.9 - 4.2 gm/dL) 5.5 H Albumin/Globulin Ratio (1.1 - 2.2 %) 0.4 L Toxicology Salicylates (0 - 20.0 mg/dL) < 1.0 Urine Opiates Screen (>2000 NG/ML) < 100 Methadone Screen (>300 NG/ML) 48 Acetaminophen (10.0 - 30.0 ug/mL) < 10.0 L Barbiturate Screen (>200 NG/ML) < 60 Ur Phencyclidine Scrn (>25 NG/ML) < 6.00 Amphetamines Screen (>1000 NG/ML) < 100 U Benzodiazepines Scrn (>200 NG/ML) < 85 Urine Cocaine Screen (>300 NG/ML) < 50 Urine Cannabis Screen (>50 NG/ML) 8.90 Serum Alcohol (<10 MG/DL) < 10.0 Urines Urine Color (YEL,AMB,STR) YEL Urine Clarity (CLEAR) CLDY H Urine pH (5.0 - 8.0) 6.0 Ur Specific [place] (1.001 - 1.035) 1.020 Urine Protein (NEG,<30 MG/DL) NEG Urine Ketones (NEG) NEG Urine Nitrite (NEG) NEG Urine Bilirubin (NEG) NEG Urine Urobilinogen (0.1 - 1.0 EU/dl) 0.2 Ur Leukocyte Esterase (NEG) LARGE H Ur Microscopic SEDIMENT EXAMINED Urine RBC (0 - 5 /HPF) 15-25 H Urine WBC (0 - 2 /HPF) > 75 H Ur Epithelial Cells (NONE,FEW) RARE Urine Bacteria (NEG/NONE) MANY H Urine Hemoglobin (NEG) LARGE H Urine Glucose (N MG/DL) NEG 12/26 Coagulation PT (9.4 - 12.5 SEC) 19.3 H INR (0.90 - 1.19) 1.76 H APTT (25 - 37 SEC) 30 Hematology CBC w Diff NO MAN DIFF REQ WBC (4.8 - 10.8 /CUMM) 3.8 L RBC (4.20 - 5.40 /CUMM) 3.32 L Hgb (12.0 - 16.0 G/DL) 12.3 Hct (37 - 47 %) 36.2 L MCV (81.0 - 99.0 FL) 109.1 H MCH (27.0 - 31.0 PG) 37.1 H MCHC (33.0 - 37.0 G/DL) 34.0 RDW (11.5 - 14.5 %) 21.1 H Plt Count (130 - 400 /CUMM) 98 L MPV (7.4 - 10.4 FL) 7.8 Gran % (42.2 - 75.2 %) 68.0 Lymphocytes % (20.5 - 51.1 %) 17.8 L Monocytes % (1.7 - 9.3 %) 13.8 H Eosinophils % (0 - 5 %) 0 Basophils % (0.0 - 2.0 %) 0.4 Absolute Granulocytes (1.4 - 6.5 /CUMM) 2.6 Absolute Lymphocytes (1.2 - 3.4 /CUMM) 0.7 L Absolute Monocytes (0.10 - 0.60 /CUMM) 0.5 Absolute Eosinophils (0.0 - 0.7 /CUMM) 0 Absolute Basophils (0.0 - 0.2 /CUMM) 0 Toxicology Acetaminophen Cancelled
--- NOTE | 2017-12-28 15:18 | ULTRASOUND REPORT ---
EXAMINATION: US ABDOMEN LIMITED CLINICAL INFORMATION: Concern for spontaneous bacterial peritonitis. COMPARISON: CT abdomen pelvis 12/27/2017 TECHNIQUE: Real-time imaging of the abdomen, evaluating for ascites. FINDINGS: Sonographic imaging of the 4 abdominal quadrants demonstrates only trace ascites in the right upper quadrant. No ascites was visualized within the other 3 quadrants.. There is no safe window to perform a paracentesis. Paracentesis was therefore not performed. IMPRESSION: Only trace ascites present. No safe window to perform paracentesis.
[2017-12-28 16:00] VITALS: BP 104/74; BP 110/74
[2017-12-28 20:39] VITALS: BP 122/70
[2017-12-29] VITALS (11 sets, daily range): BP systolic 124–142; BP diastolic 64–78
--- NOTE | 2017-12-29 07:02 | PN- Housestaff ---
See Addendum Subjective Follow-up For: Hepatic Encephalopathy, resolving Subjective: No overnight event. AO x 3 and conversational. No specific complaint. Review of Systems Constitutional: Reports: see HPI. Objective Last 24 Hrs of Vital Signs/I&O Vital Signs Date Time Temp Pulse Resp B/P B/P Pulse O2 O2 Flow FiO2 Mean Ox Delivery Rate 12/29 06 98.5 67 20 142/78 92 Room Air 12/28 2039 98.1 74 20 122/70 95 Room Air 12/28 2000 88 20 12/28 1600 97.6 72 20 104/74 12/28 1600 97.4 84 18 110/74 95 Room Air 12/28 0800 98.6 74 20 110/70 12/28 0800 98.6 74 20 100/70 95 Room Air Intake & Output 12/29 0800 12/29 0000 12/28 1600 Intake Total 950 1040 Output Total 340 425 Balance 610 615 Intake, IV 800 800 Intake, Oral 150 240 Output, Urine 340 425 Patient 122.47 kg Weight Physical Exam General Appearance: Alert, Oriented X3, Cooperative, No Acute Distress Cardiovascular: Regular Rate Lungs: Normal Air Movement Abdomen: Normal Bowel Sounds, Soft, No Tenderness, Petechial rash Neurological: Normal Speech, Strength at 5/5 X4 Ext Extremities: No Cyanosis, No Edema, Normal Pulses Current Medications: Current Medications Sig/Ofelia Start time Last Medication Dose Route Stop Time Status Admin Ceftriaxone Sodium 1,000 MG DAILY 12/28 0900 12/28 IV 0944 Dextrose/Sodium 1,000 ML .Q10H 12/27 0100 12/29 Chloride IV 0641 Insulin Aspart 0 TIDAC 12/28 1700 12/28 SC 1700 Insulin Human Regular 0 Q6 12/27 0600 [place] 12/28 SC 1250 Lactulose 20 GM BID 12/28 2100 AC 12/28 PO 2034 Lactulose 20 GM TID 12/28 1400 DC 12/28 PO 1452 Lactulose 1 BOT 1600,2200,0400,1000 12/27 1600 [place] 12/28 [place] 0400 Melatonin 5 MG AT BEDTIME 12/29 0145 AC 12/29 PO 0147 Metoprolol Succinate 25 MG DAILY 12/28 1423 AC 12/28 PO 1423 Nystatin 1 ANDRADE BID PRN 12/28 1215 12/29 TOP 0000 Last 24 Hrs of Lab/Paresh Results Last 24 Hrs of Labs/Mics: Laboratory Tests 12/29/17 0620: Sodium Pending, Potassium Pending, Chloride Pending, Carbon Dioxide Pending, Anion Gap Pending, BUN Pending, Creatinine Pending, BUN/Creatinine Ratio Pending , Ammonia Pending, CBC w Diff Pending, WBC Pending, RBC Pending, Hgb Pending, Hct Pending, MCV Pending, MCH Pending, MCHC Pending, RDW Pending, Plt Count Pending, MPV Pending 12/28/17 1133: Fluid WBC Cancelled, Fld Total RBCs Counted Cancelled 12/28/17 1133: Fluid Glucose Cancelled, Fluid Total Protein Cancelled, Fluid Albumin Cancelled, Fluid LDH Cancelled, Fluid Amylase Cancelled Microbiology 12/28 1132 BODY FLUID: Body Fluid Culture - CAN Cancelled: DC/NGTH. 12/28 1132 BODY FLUID: Gram Stain - CAN Cancelled: DC/NGTH. Assessment/Plan Assessment: Neha Candelario is a 57F with a PMH of liver cirrhosis secondary to alcohol abuse and hepatitis C (never treated), hypertension, stage III CKD, anxiety/ depression/bipolar disorder with history of suicide attempt, DM, presents with episodes of altered mental status, agitation, in restraints in the ED s/p ativan administration, with elevated ammonia and no ct findings of significant acute process with a UA showing leuk esterase and many bacteria with urine culture growing gram negative rods Problem List: #Altered Mental status likely Hepatic Encephalopathy 2/2 alcohol use/cirrhosis, resolving #Complicated UTI w/o risk factors for MDR organism #Pancytopenia #Diabetes #Cirrhosis #Alcohol Abuse #Tinea #Hepatic Encephalopathy -Continue Enulose PO BID and titrate to 2-3 BM/day -Appreciate GI input -Not enough fluid for diagnostic tap from ICU stay -Mental status improving -Passed swallow eval 12/28 -Potential scope per GI will f/u outpatient for Hep C and EGD -Ammonia trended 103 -> 68 on latest lab. #Complicated UTI -On Ceftriaxone, 1g, day 2 -Urine culture growing >100,000 gram negative rods, pending sensitivity -Monitor if any fevers #Pancytopenia -Macrocytic anemia w/ Hgb 12.3 -> 10.9 -> 9.9 pending latest lab. -Likely 2/2 alcohol usage #Diabetes -On ISS, accuchecks #Cirrhosis/EtOH abuse -On CIWA, will monitor for withdrawals -Pending SW consult. #Tinea -Nystatin powder PRN DVT PPx - ALPS only, thrombocytopenic IV access Regular Diet Dispo - likely HHS? Problem List: 1. Elevated LFTs Pain Ratin Pain Location: NA Pain Goal: Remain pain free Pain Plan: see AP Tomorrow's Labs & Rationales: CBC/BEP
[2017-12-29 08:34] LABS: ABSOLUTE BASOPHIL COUNT 0 /CUMM (0.0-0.2); ABSOLUTE EOSINOPHIL COUNT 0 /CUMM (0.0-0.7); ABSOLUTE LYMPH COUNT 0.7 /CUMM (1.2-3.4); ABSOLUTE MONOCYTE COUNT 0.5 /CUMM (0.10-0.60); BASOPHIL % 0.3 % (0.0-2.0); EOSINOPHIL % 0.2 % (0-5); GRANULOCYTE % 62.2 % (42.2-75.2); HEMATOCRIT 29.8 % (37-47); MEAN CORPUSCULAR HGB 37.5 PG (27.0-31.0); MEAN CORPUSCULAR VOLUME 110.2 FL (81.0-99.0); MEAN PLATELET VOLUME 7.1 FL (7.4-10.4); RBC DISTRIBUTION WIDTH 20.9 % (11.5-14.5); WHITE BLOOD CELL COUNT 3.3 /CUMM (4.8-10.8)
[2017-12-29 10:02] LABS: PLATELET COUNT 75 /CUMM (130-400)
[2017-12-30] VITALS: BP 124/64
[2017-12-30 06:20] VITALS: BP 134/70
[2017-12-30 08:00] VITALS: BP 134/70
--- NOTE | 2017-12-30 08:26 | PN- Housestaff ---
See Addendum Subjective Follow-up For: Hepatic Encephalopathy UTI Pancytopenia Cirrhosis/EtOH abuse Subjective: Seen and examined. Resting comfortably. Alert oriented 3 cooperative conversant. Reports itching all over the body. Said that she could not sleep well overnight because she was not given her home dose of Ambien. Will confirm with the pharmacy and restart today. Patient was refusing lactulose yesterday, I talked to the patient and after some counseling patient agreed to take lactulose today. Denies fevers and chills. Denies any respiratory symptoms Review of Systems Constitutional: Reports: chills. Objective Last 24 Hrs of Vital Signs/I&O Vital Signs Date Time Temp Pulse Resp B/P B/P Pulse O2 O2 Flow FiO2 Mean Ox Delivery Rate 12/30 0838 98.3 89 20 134/70 12/30 0800 98.3 89 20 134/70 12/30 0620 98.3 89 20 134/70 92 Room Air 12/30 0000 97.7 71 20 124/64 12/29 2208 97.7 71 20 124/64 94 Room Air 12/29 2200 97.7 71 20 124/64 12/29 2000 97.7 71 20 124/64 12/29 1600 97.8 749 20 130/75 12/29 1455 97.8 79 20 130/75 92 Room Air 12/29 1400 98.5 67 20 142/78 12/29 1200 98.5 67 20 142/78 Intake & Output 12/30 1600 12/30 0800 12/30 0000 Intake Total 240 240 Output Total 1100 Balance -860 240 Intake, Oral 240 240 Number 2 Bowel Movements Output, Urine 1100 Physical Exam General Appearance: Alert, Oriented X3, Cooperative Cardiovascular: Normal S1, Normal S2 Lungs: Clear to Auscultation, Normal Air Movement Abdomen: Normal Bowel Sounds, Soft Neurological: Normal Speech Current Medications: Current Medications Sig/Ofelia Start time Last Medication Dose Route Stop Time Status Admin Ceftriaxone Sodium 1,000 MG DAILY 12/28 09 AC 12/30 IV 0837 Dextrose/Sodium 1,000 ML .Q10H 12/27 0100 AC 12/30 Chloride IV 0350 Diphenhydramine HCl 50 MG ONCE ONE 12/30 0100 DC 12/30 PO 12/30 0101 0051 Diphenhydramine HCl 50 MG ONCE ONE 12/30 0045 DC PO 12/30 0046 Insulin Aspart 0 TIDAC 12/28 1700 AC 12/29 SC 1713 Lactulose 20 GM BID 12/28 2100 AC 12/30 PO 0838 Melatonin 5 MG AT BEDTIME 12/29 0145 AC 12/29 PO 205 Metoprolol Succinate 25 MG DAILY 12/28 1423 AC 12/30 PO 0838 Nystatin 1 ANDRADE BID PRN 12/28 1215 AC 12/29 TOP 0000 Last 24 Hrs of Lab/Paresh Results Last 24 Hrs of Labs/Mics: Laboratory Tests 12/30/17 0655: Sodium Pending, Potassium Pending, Chloride Pending, Carbon Dioxide Pending, Anion Gap Pending, BUN Pending, Creatinine Pending, BUN/Creatinine Ratio Pending , Ammonia Pending, CBC w Diff Pending, WBC Pending, RBC Pending, Hgb Pending, Hct Pending, MCV Pending, MCH Pending, MCHC Pending, RDW Pending, Plt Count Pending, MPV Pending Assessment/Plan Assessment: The patient is a 57-year-old female her past medical history significant for liver cirrhosis secondary to alcohol abuse and hepatitis C (never treated), hypertension, stage III CKD, anxiety/depression/bipolar disorder with history of suicide attempt, DM,. She presented withh episodes of altered mental status, agitation, in restraints in the ED s/p ativan administration, with elevated ammonia and no ct findings of significant acute process with a UA showing leuk esterase and many bacteria with urine culture growing gram negative rods Problem List: #Altered Mental status likely Hepatic Encephalopathy 2/2 alcohol use/cirrhosis, resolving #Complicated UTI w/o risk factors for MDR organism #Pancytopenia #Diabetes #Cirrhosis #Alcohol Abuse #Tinea #Hepatic Encephalopathy Mental status improved alert oriented 3, was refusing lactulose yesterday however was convinced to restart today -Continue Enulose PO BID and titrate to 2-3 BM/day -Appreciate GI input -Not enough fluid for diagnostic tap from ICU stay -Passed swallow eval 12/28 -Potential scope per GI will f/u outpatient for Hep C and EGD -Ammonia trended 103 -> 68->59, ammonia level has gone prognostic and severity index. We will stop trending at this point #UTI Patient reported dysuria and increased frequency which she reports has not improved. Does not give history of recurrent UTI -On Ceftriaxone, 1g, day 3 -Urine culture growing >100,000 gram negative rods, growing Klebsiella pneumoniae sensitive to ceftriaxone and Augmentin -We will switch to oral Augmentin on discharge #Pancytopenia -Macrocytic anemia w/ Hgb 12.3 -> 10.9 -> 9.9-- 10.6 -Likely 2/2 alcohol usage #Diabetes -On ISS, accuchecks #Cirrhosis/EtOH abuse -On CIWA, will monitor for withdrawals -Pending SW consult. #Tinea -Nystatin powder PRN DVT PPx - ALPS only, thrombocytopenic IV access Regular Diet Dispo - likely HHS? Problem List: 1. Hepatic encephalopathy Pain Ratin Pain Location: na Pain Goal: Pain 4 or less Pain Plan: prn Tomorrow's Labs & Rationales: cbc bep
[2017-12-30 10:00] VITALS: BP 134/70
[2017-12-30 11:07] LABS: ABSOLUTE BASOPHIL COUNT 0 /CUMM (0.0-0.2); ABSOLUTE EOSINOPHIL COUNT 0 /CUMM (0.0-0.7); ABSOLUTE LYMPH COUNT 0.7 /CUMM (1.2-3.4); ABSOLUTE MONOCYTE COUNT 0.5 /CUMM (0.10-0.60); BASOPHIL % 0.4 % (0.0-2.0); EOSINOPHIL % 0 % (0-5); GRANULOCYTE % 61.3 % (42.2-75.2); HEMATOCRIT 31.3 % (37-47); MEAN CORPUSCULAR HGB 37.7 PG (27.0-31.0); MEAN PLATELET VOLUME 7.4 FL (7.4-10.4); RBC DISTRIBUTION WIDTH 20.4 % (11.5-14.5); RED BLOOD CELL CT 2.82 /CUMM (4.20-5.40); WHITE BLOOD CELL COUNT 3.2 /CUMM (4.8-10.8)
[2017-12-30 11:31] LABS: PLATELET COUNT 77 /CUMM (130-400)
[2017-12-30 12:00] VITALS: BP 134/70
[2017-12-30] MEDS ORDERED: NYSTATIN15 G1 TOP ×2 (12:00→14:34)
[2017-12-30] MEDS ORDERED: AUGMENTIN 875-1 EACH PO ×2 (12:02→14:34)
[2017-12-30] MEDS ORDERED: LACTULOSE20 GM/30 M PO ×2 (12:02→14:34)
--- NOTE | 2017-12-30 12:34 | Patient Discharge Instructions ---
Discharge Instructions General Discharge Information You were seen/treated for: Hepatic encephalopathy Special Instructions: -Please follow-up with your primary care doctor after discharge -please follow-up with gastroenterology after discharge for management of hepatitis C and outpatient endoscopy -Please be compliant with lactulose -Please return to ED if there is worsening of her clinical condition, if you have starts spiking fever chills and if you feel confused Diet Additional DIET Information: As tolerated Activity Activity Self Limited: Yes Acute Coronary Syndrome Inclusion Criteria At DC or during hospital stay patient has or had the following: ACS DIAGNOSIS No Discharge Core Measures Meds if any: Prescribed or Continued at Discharge Meds if any: NOT Prescribed or Continued at Discharge Congestive Heart Failure Inclusion Criteria At DC or during hospital stay patient has or had the following: CHF DIAGNOSIS No Discharge Core Measures Meds if any: Prescribed or Continued at Discharge Meds if any: NOT Prescribed or Continued at Discharge Cerebrovascular accident Inclusion Criteria At DC or during hospital stay patient has or had the following: CVA/TIA Diagnosis No Discharge Core Measures Meds if any: Prescribed or Continued at Discharge Meds if any: NOT Prescribed or Continued at Discharge Venous thromboembolism Inclusion Criteria VTE Diagnosis No VTE Type NONE VTE Confirmed by (Test) NONE Discharge Core Measures - Per Current guidelines, there needs to be overlap - treatment for the first 5 days of Warfarin therapy. - If discharged on Warfarin prior to 5 days of - overlap therapy, the patient will need to be - assessed for post discharge needs including - *Post discharge parental anticoagulation - *Warfarin and/or parental anticoagulation education - *Follow up date to check INR post discharge At least 5 days overlap therapy as Inpatient No Meds if any: Prescribed or Continued at Discharge Note: Overlap Therapy is Warfarin and Anticoagulant Meds if any: NOT Prescribed or Continued at Discharge
[2017-12-30 14:49] VITALS: BP 110/66
--- NOTE | 2017-12-30 18:38 | Discharge Summary ---
Visit Information Visit Dates Admission Date: 12/26/17 Discharge Date: 12/30/17 Hospital Course Course Attending Physician: Kristin PERSAUD,Dashawn Primary Care Physician: Azalia PERSAUD,[facility] Course: The patient is 57-year-old female with past medical history of liver cirrhosis secondary to alcohol abuse and hepatitis C (never treated), hypertension, stage III CKD, anxiety/depression/bipolar disorder with history of suicide attempt, DM. She presented to [place] ED with altered mental status and agitation. In ED patient was in restraints status post Ativan administration. -Vitals WNL -Admission labs were significant for pancytopenia, microcytic anemia, creatinine of 1.9, lactate of 2.4, total bilirubin of 2.9 AST 60 ALT 36 alk phos 118 and elevated ammonia of 103, albumin was low at 2.4 and INR was at 1.76. UA was positive for large leukoesterase with greater than 75 WBCs. U tox was essentially negative with alcohol level less than 10 and Tylenol level less than 10 as well -Head CT was negative for any acute intracranial pathology and chest x-ray showed low lung volumes with mild hypoventilatory changes Patient was initially admitted to ICU later transferred to general medicine floor. She was admitted for altered mental status secondary to hepatic encephalopathy secondary to alcohol abuse. Patient also has underlying cirrhosis related with alcohol abuse disorder and untreated Hepatitis C. she was started on lactulose p.o. and titrated up to 2-3 bowel movements per day. Her mental status improved significantly the subsequent day. Her ammonia level was also trended and decreased up to 50. Patient followed swallow evaluation on and was started on regular diet. She was evaluated by GI. Patient had been prescribed harvoni a few months ago which she had not taken. They recommended hepatitis C treatment and also EGD to assess for varices/possible El's esophagus as an outpatient. LFTs were also monitored and were down trending. On the day of discharge patient was alert oriented 3 and name the current president and last 3 presidents in humor when I was trying to assess her mental status. She seemed to be in good spirits and was counseled on compliance with lactulose and GI follow-up along with alcohol abstinence. Patient also complained of dysuria along with increased urinary frequency. She was treated for UTI with IV ceftriaxone for 3 days and later shifted to Augmentin to complete a 5 day course when her urine culture grew sensitive Klebsiella pneumoniae. Patient reported improving urinary symptoms on the day of discharge. It appears that patient altered mental status was likely secondary to hepatic encephalopathy compounded by UTI The pancytopenia was most likely secondary to ongoing alcohol abuse. Patient was extensively counseled on alcohol abstinence. Her cell lines remain stable. She was also started on CIWA for withdrawal however scored low. Her diabetes was managed by insulin sliding scale. She has baseline renal insufficiency and her creatinine was around her baseline 1.4 on the day of discharge She was full code during her stay -She will require follow-up with GI for hepatitis C treatment and endoscopy -She has been counselled to follow-up with PCP within 1 week of discharge Allergies: Coded Allergies: acetaminophen (From TYLENOL) (LIVER DYSFUNCTION 12/12/17) Disposition Summary Disposition Principal Diagnosis: Hepatic encephalopathy insetting of cirrhosis secondary to alcohol abuse disorder and hepatitis C compounded by UTI Additional Diagnosis: Pancytopenia cirrhosis Discharge Disposition: home or self care Discharge Instructions General Discharge Information Code Status: Full Code Patient's Diet: As tolerated Patient's Activity: As tolerated Follow-Up Instructions/Appts: Follow-up with GI after discharge follow-up with PCP after discharge Medications at Discharge Discharge Medications: Continue taking these medications: Furosemide (Lasix) 20 MG TABLET 1 Tablet ORAL DAILY Comments: NOT GIVEN IN HOSPITAL Metoprolol Succinate (Metoprolol Succinate) 25 MG TAB 1 Tablet ORAL DAILY Qty = 30 Comments: Last Taken: 12/30/17 Time: 8:30 AM Insulin Aspart (Novolog) 100 UNIT/ML VIAL 0 Units SC BEFORE MEALS AND AT BEDTIME Qty = 30 Instructions: BEFORE MEALS Blood Insulin Sugar Units <80 0 81-150 6 151-200 8 201-250 9 251-300 10 301-350 11 351-400 13 >400 Call Doctor AT BEDTIME Blood Insulin Sugar Units <80 0 81-100 0 101-200 0 201-250 0 251-300 4 301-350 5 351-400 6 >400 Call Doctor Comments: Last Taken: 12/30/17 Time: 12:30 AM Duloxetine Hydrochloride (Cymbalta) 20 MG CAPSULE.DR 1 Capsule ORAL TWICE DAILY Comments: NOT GIVEN IN HOSPITAL Olanzapine (Zyprexa) 5 MG TABLET 1 Tablet ORAL Every night Comments: Last Taken:04/09/15 Time:9PM NOT GIVEN THIS ADMISSION Gabapentin (Gabapentin) 300 MG CAPSULE 2 Capsule ORAL EVERY 8 HOURS Days = 30 Comments: Last Taken:04/10/15 Time:2PM NOT GIVEN THIS ADMISSION Omeprazole (Omeprazole) 20 MG CAPSULE.DR 1 Capsule ORAL DAILY Qty = 30 Comments: NOT GIVEN IN HOSPITAL Albuterol Sulfate (Ventolin Hfa) 90 MCG HFA.AER.AD 2 Puff Inhale through mouth as needed for RESPIRATORY Qty = 18 Comments: NOT GIVEN IN HOSPITAL Insulin Detemir (Levemir) 100 UNIT/ML VIAL 6 Units SC TWICE DAILY Comments: NOT GIVEN IN HOSPITAL PER PT MD DECREASED FROM 8 UNITS BID Lorazepam (Lorazepam) 0.5 MG TABLET 1 Tablet ORAL 2 x Daily as needed as needed for ANXIETY Qty = 60 Comments: Last Taken: 12/26/17 Time: 9 PM Oxycodone HCl/Acetaminophen (Percocet 5-325 MG Tablet) 5 MG-325 MG TABLET 1 Tablet ORAL 4 times daily as needed as needed for PAIN Qty = 4 Instructions: four...[id number] Comments: NOT GIVEN IN HOSPITAL Cyclobenzaprine HCl (Cyclobenzaprine HCl) 10 MG TABLET 1 Tablet ORAL EVERY 8 HOURS NEEDED Qty = 20 Comments: NOT GIVEN IN HOSPITAL Ibuprofen (Ibuprofen) 600 MG TABLET 1 Tablet ORAL THREE TIMES DAILY as needed for PAIN Qty = 20 Instructions: with food Comments: NOT GIVEN IN HOSPITAL Magnesium Oxide (Magnesium) 400 MG CAPSULE 1 Capsule ORAL DAILY Qty = 30 Comments: NOT GIVEN IN HOSPITAL Loperamide HCl (Imodium A-D) 2 MG TABLET 0 ORAL SEE INSTRUCTIONS as needed for diarrhea Qty = 24 Instructions: 1 tab after each loose stool up to 7 per day Comments: NOT GIVEN IN HOSPITAL Start taking the following new medications: Nystatin (Nystatin) 100,000 UNIT/GRAM CREAM..G. 1 Application On the skin TWICE DAILY as needed for fungal Qty = 1 No Refills Instructions: . Comments: Last Taken: 12/29/17 Time: 12:00AM Lactulose (Lactulose) 20 GRAM/30 ML SOLUTION 20 Gram ORAL TWICE DAILY Qty = 1 No Refills Instructions: titrate upto 2-3 Bowel movement per day. Comments: Last Taken: 12/30/17 Time: 8:30 AM Amoxicillin/Potassium Clav (Augmentin 875-125 Tablet) 875 MG-125 MG TABLET 1 Tablet ORAL TWICE DAILY Qty = 4 No Refills Instructions: . Comments: NOT GIVEN IN HOSPITAL Copies To: Azalia PERSAUD,Keenan Ortiz MD,Alvin Attending MD Review Statement Documenting Attending: Sarbjit Egan MD
== END 2017-12-30 15:00 | DRG 442 ==
LOC: ERH 18:41 → ERHI 23:02 → CRI 23:02 → ENRESERV 12-27 06:52 → ENTRNSPT 12-27 10:46 → EDTRNSPT 12-27 11:04 → EDTRNSPTSTS 12-27 11:04 → EDTRNSPT 12-27 11:16 → CRI 12-27 11:34 → CMPTRNSPT 12-27 11:34 → ENTRNSPT 12-28 19:45 → EDTRNSPTSTS 12-28 19:52 → CMPTRNSPT 12-28 20:30 → 2NA 12-28 20:37 → ENPENDDIS 12-30 14:34 → ENTRNSPT 12-30 14:46 → EDTRNSPTSTS 12-30 14:52 → 2NA 12-30 15:00 → CMPTRNSPT 12-30 15:22
PROVIDERS: Emergency Medicine; Physical Medicine & Rehabilitation; Student in an Organized Health Care Education/Training Program
DX: K72.90 Hepatic failure, unspecified without coma (principal); Z68.41 Body mass index [BMI] 40.0-44.9, adult; F11.20 Opioid dependence, uncomplicated; K76.6 Portal hypertension; D68.4 Acquired coagulation factor deficiency; E87.2 Acidosis; N17.9 Acute kidney failure, unspecified; D61.818 Other pancytopenia; E72.20 Disorder of urea cycle metabolism, unspecified; N39.0 Urinary tract infection, site not specified; D69.6 Thrombocytopenia, unspecified; G47.33 Obstructive sleep apnea (adult) (pediatric); G89.29 Other chronic pain; F31.9 Bipolar disorder, unspecified; F41.9 Anxiety disorder, unspecified; Z85.42 Personal history of malignant neoplasm of other parts of uterus; Z85.41 Personal history of malignant neoplasm of cervix uteri; E66.9 Obesity, unspecified; W19.XXXA Unspecified fall, initial encounter; Z91.81 History of falling; E11.40 Type 2 diabetes mellitus with diabetic neuropathy, unspecified; Z79.4 Long term (current) use of insulin; B19.20 Unspecified viral hepatitis C without hepatic coma; F10.20 Alcohol dependence, uncomplicated; K70.30 Alcoholic cirrhosis of liver without ascites; K21.9 Gastro-esophageal reflux disease without esophagitis; K22.70 Barrett's esophagus without dysplasia; K31.89 Other diseases of stomach and duodenum; R74.0 Nonspecific elevation of levels of transaminase and lactic acid dehydrogenase [LDH]; I12.9 Hypertensive chronic kidney disease with stage 1 through stage 4 chronic kidney disease, or unspecified chronic kidney disease; E11.22 Type 2 diabetes mellitus with diabetic chronic kidney disease; N18.3 Chronic kidney disease, stage 3 (moderate); Z91.14 Patient's other noncompliance with medication regimen; E83.42 Hypomagnesemia; E86.0 Dehydration; Z88.6 Allergy status to analgesic agent; F17.210 Nicotine dependence, cigarettes, uncomplicated; B35.9 Dermatophytosis, unspecified; B96.1 Klebsiella pneumoniae [K. pneumoniae] as the cause of diseases classified elsewhere
CPT/HCPCS: 2NAP; 87075; CCU; ERO; 36415; 36592; 71045; 74176; 80307; 81001; 82436; 87086; 93005; 93010; 96374; 96376; G0480; J0696; J1815; J7042